=== PATIENT | male | born 1945 | race Caucasian/White ===

== ENCOUNTER → 2018-03-28 08:41 | Outpatient (CLI) | payer MEDICARE, OTHER, SELFPAY | PROVIDERS: Family Provider Family Medicine; PCP Family Medicine; Visit Provider Urology | DX: R97.20 Elevated prostate specific antigen [PSA] (principal) | CPT/HCPCS: 36415; 84153 ==

== ENCOUNTER → 2018-07-24 07:53 | Outpatient (CLI) | payer MEDICARE, OTHER, SELFPAY ==
[2018-07-24 09:40] LABS: Hematocrit 40.4 % (41-53); Hemoglobin 13.6 g/dL (13.5-17.5); Mean Corpuscular HGB Conc 33.7 % (30-36); Mean Corpuscular Hemoglobin 34.1 PG (26-34); Mean Corpuscular Volume 101.2 fL (80-100); Platelet Count 144 X10^3/uL (150-400); Red Cell Distribution Width 13.8 % (11.6-14.8)
[2018-07-24 10:08] LABS: Alanine Aminotransferase 30 IU/L (21-72); Albumin 4.3 g/dL (3.5-5.0); Albumin Globulin Ratio 1.5 (1.0-2.8); Alkaline Phosphatase 45 U/L (38-126); Aspartate Aminotransferase 23 IU/L (17-59); Bilirubin Total 0.6 mg/dL (0.2-1.3); Blood Urea Nitrogen 17 mg/dL (9-20); Calcium 9.1 mg/dL (8.4-10.2); Carbon Dioxide 27 mmol/L (22-32); Chloride 104 mmol/L (98-107); Cholesterol 211 mg/dL (140-199); Estimated Glomerular Filt Rate > 60.0 mL/min (>60); Globulin 2.8 g/dL (1.7-4.1); Glucose 112 mg/dL (80-110); HDL Cholesterol 52 mg/dL (40-60); HEMOLYSIS < 15 (0-50); LDL Cholesterol Calculated 138 mg/dL (<100); Sodium 140 mmol/L (137-145); Total Protein 7.1 g/dL (6.3-8.2); Triglycerides 105 mg/dL (35-150)
[2018-07-24 10:18] LABS: Free T3, Triiodothyronine Free 3.15 pg/mL (2.77-5.27); Free T4, Direct Thyroxine 0.73 ng/dL (0.78-2.19)
[2018-07-24 10:19] LABS: Morphology Comment Normal Morphology; Neutrophils Absolute Manual 1110 /uL (3000-5900); Total Cells Counted 100
[2018-07-24 10:36] LABS: Prostate Specific Antigen Scrn 3.77 ng/mL (0.1-4.0)
== END ==
PROVIDERS: PCP Family Medicine; Visit Provider Family Medicine
DX: D72.819 Decreased white blood cell count, unspecified (principal); E78.5 Hyperlipidemia, unspecified; E03.9 Hypothyroidism, unspecified; R89.9 Unspecified abnormal finding in specimens from other organs, systems and tissues; R94.6 Abnormal results of thyroid function studies; Z12.5 Encounter for screening for malignant neoplasm of prostate
CPT/HCPCS: 36415; 80053; 80061; 84439; 84443; 84481; 85025; G0103

== ENCOUNTER → 2018-08-23 06:43 | Outpatient (CLI) | payer MEDICARE, OTHER, SELFPAY ==
--- NOTE | 2018-08-23 | DI.MRI.S_ITS ---
PROCEDURE: MR LUMBAR SPINE WO CON INDICATIONS: SPINAL STENOSIS OF LUMBAR REGION TECHNIQUE: Noncontrast sagittal T1 spin echo and T2 fast echo, sagittal STIR, axial T1 and T2 fast spin echo through the lumbar spine. In cases with scoliosis, additional coronal T2 fast spin echo may be performed. COMPARISON: [facility], MR, L-SPINE WITHOUT CONTRAST, 04/27/2017, 9:17. [facility], CR, L-SPINE MINIMUM 4 VIEWS, 04/27/2017, 9:43. [facility], MR, L-SPINE WITHOUT CONTRAST, 08/24/2015, 15:28. [facility], MR, L-SPINE W&WO CONTRAST, 05/14/2015, 10:00. [facility], MR, L-SPINE WITHOUT CONTRAST, 11/10/2014, 8:38. FINDINGS: Image quality: Excellent. Alignment and Curvature: There is minimal retrolisthesis seen at the L2-L3, L4-L5, and L5-S1 levels. Bone Marrow: Marrow is of normal overall signal. No acute vertebral body compression fractures. Spinal Cord: Conus medullaris terminates at the L1 level. Visualized cord demonstrates normal signal and size. Paraspinous Soft Tissues: No paravertebral masses. T12-L1: The disc height and disc signal are relatively well-preserved. Mild generalized disc bulge is seen. No significant neural foraminal or central canal narrowing can be seen. L1-L2: Mild loss of disc height is seen. Loss of disc signal is seen. Mild generalized disc bulge is seen. Moderate bilateral neural foraminal narrowing is seen, left more prominent than right. Mild central canal narrowing is seen. These imaging findings have progressed compared to the prior study. L2-L3: Moderate loss of disc height is seen. Loss of disc signal is seen. Moderate generalized disc bulge is seen. Mild facet joint hypertrophy is seen. At least moderate bilateral neural foraminal narrowing is seen, right worse than left. Moderate central canal narrowing is seen. These imaging findings are mildly progressed compared to the prior. L3-L4: The disc height is well-preserved. Loss of disc signal is seen at this level. Mild to moderate disc bulge is seen. There has been removal of portions of the posterior elements. Moderate bilateral neural foraminal narrowing is seen, right greater than left. The central canal is widely patent. When comparison is made with the prior examination, these findings are similar. L4-L5: The disc height is well-preserved. Loss of disc signal is seen at this level. There has been removal of portions of the posterior elements. Mild to moderate disc bulge can be seen at this level. There is moderate to severe right-sided and severe left-sided neural foraminal narrowing seen. There is a degree of compression seen upon the exiting L4 nerve roots. The central canal is widely patent. These imaging findings have progressed compared to the prior study. L5-S1: Moderate to severe loss of disc height and disc signal are seen. Reactive marrow endplate changes are seen, which are hyperintense on T1-weighted and T2-weighted imaging and most consistent with fatty metaplasia (Modic type II changes). Moderate generalized disc bulge is seen. Joxj-on-bgocbmyu facet hypertrophy is seen. Moderate to severe bilateral neural foraminal narrowing is seen, left worse than right. There is a degree of compression seen upon the exiting L5 nerve roots. The central canal is widely patent. These imaging findings appear slightly progressed compared to the prior. IMPRESSION: Multiple levels of lumbar spine degenerative change are seen, which are most prominent inferiorly, with a degree of compression upon the exiting L4 and L5 nerve roots on both sides. Overall mild progression of degenerative change compared to 2017. Dictated by: Jatin Monroy M.D. on 08/23/2018 at 8:14 Approved by: Jatin Monroy M.D. on 08/23/2018 at 8:21
== END ==
PROVIDERS: PCP Family Medicine; Visit Provider Student in an Organized Health Care Education/Training Program
DX: M48.061 Spinal stenosis, lumbar region without neurogenic claudication (principal); M48.07 Spinal stenosis, lumbosacral region; M47.816 Spondylosis without myelopathy or radiculopathy, lumbar region; M47.817 Spondylosis without myelopathy or radiculopathy, lumbosacral region
CPT/HCPCS: 72148

== ENCOUNTER → 2018-08-27 14:33 | Outpatient (CLI) | payer MEDICARE, OTHER, SELFPAY ==
--- NOTE | 2018-08-27 | DI.RAD.S_ITS ---
PROCEDURE: XR LUMBAR SPINE 2-3V INDICATIONS: Spinal stenosis, lumbar region without neurogenic claudicati TECHNIQUE: 3 views of the lumbar spine were acquired. COMPARISON: [facility], , L-SPINE MINIMUM 4 VIEWS, 04/27/2017, 9:43. FINDINGS: Bones: 5 ihr-rxg-sgepcoe vertebrae are present. There is suggestion of prior laminectomy at L3-L5 levels suggest clinical correlation. There is grade 1 retrolisthesis of L2 on L3, L3 on L4 and L4 and L5 unchanged from previous studies. Degenerative endplate changes throughout lumbar spine is seen. No vertebral body compression fractures. No suspicious bony lesions. Soft tissues: Overlying bowel gas pattern is normal. No suspicious soft tissue calcifications. IMPRESSION: Degenerative disc disease throughout lumbar spine with likely degenerative spondylolisthesis at L2-3 through L4-5 levels. Prior laminectomy at L3-L5 levels. No acute compression fracture. Dictated by: Felipe Hi M.D. on 08/27/2018 at 15:40 Approved by: Felipe Hi M.D. on 08/27/2018 at 15:41
== END ==
PROVIDERS: PCP Family Medicine; Visit Provider Student in an Organized Health Care Education/Training Program
DX: M48.061 Spinal stenosis, lumbar region without neurogenic claudication (principal); M51.36 Other intervertebral disc degeneration, lumbar region; Z98.890 Other specified postprocedural states
CPT/HCPCS: 72100

== ENCOUNTER → 2018-10-05 14:55 | Outpatient (CLI) | payer MEDICARE, OTHER, SELFPAY ==
[2018-10-05 16:26] LABS: Free T3, Triiodothyronine Free 3.24 pg/mL (2.77-5.27); Free T4, Direct Thyroxine 0.76 ng/dL (0.78-2.19)
[2018-10-05 18:47] LABS: Alanine Aminotransferase 20 IU/L (21-72); Albumin 4.2 g/dL (3.5-5.0); Albumin Globulin Ratio 1.6 (1.0-2.8); Alkaline Phosphatase 46 U/L (38-126); Aspartate Aminotransferase 25 IU/L (17-59); BUN Creatinine Ratio 25.6 (6-22); Bilirubin Total 0.5 mg/dL (0.2-1.3); Bilirubin Unconjugated 0.4 mg/dL (0.0-1.1); Blood Urea Nitrogen 23 mg/dL (9-20); Calcium 9.4 mg/dL (8.4-10.2); Carbon Dioxide 29 mmol/L (22-32); Chloride 103 mmol/L (98-107); Estimated Glomerular Filt Rate > 60.0 mL/min (>60); Globulin 2.6 g/dL (1.7-4.1); Glucose 92 mg/dL (80-110); HEMOLYSIS < 15 (0-50); Potassium 4.7 mmol/L (3.4-5.1); Sodium 140 mmol/L (137-145); Total Protein 6.8 g/dL (6.3-8.2)
== END ==
PROVIDERS: PCP Family Medicine; Visit Provider Podiatrist
DX: B35.1 Tinea unguium (principal); R94.6 Abnormal results of thyroid function studies
CPT/HCPCS: 36415; 80048; 80076; 84439; 84443; 84481

== ENCOUNTER 2019-02-20 07:55 | Day surgery (SDC) | payer MEDICARE, OTHER, SELFPAY ==
--- NOTE | 2019-02-18 12:53 | PM.PREOP ---
Pre-operative Note Interval Note History & Physical reviewed/Exam performed by Physician: Yes Changes to H&P: No H&P completed within 30 days and has changed as indicated here:: He took an NSAID last night.
--- NOTE | 2019-02-18 12:54 | P.OP_ITS ---
Operative Date/Time/Diagnoses Date of procedure: 02/20/19 Time of procedure: 08:45 Procedure & Clinicians Procedure: Preoperative diagnoses: 1. Left complex surgery with use of Malyguin ring. 2. Mature or advanced nuclear sclerotic and cortical cataract with poor visibility of the anterior capsule increasing surgical risks of complications. 3. 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 Postoperative diagnoses: 1. Left complex surgery with use of Malyguin ring with placement of a posterior chamber intraocular lens implant. Surgeon: Mallika Toney MD Complications: none Specimen: None Implant: ZCBOO+22.5 Blood loss: None Anesthesia: Retrobulbar with monitored standby. Description of procedure: Dictated by: Mallika Toney MD Copy to: [facility] Post operative diagnoses: 1. Right complex cataract removed with use of Malyguin ring with placement of a posterior chamber intraocular lens. 2. Enlarged prostate. 3. Flomax use 4. Spinal irregularity after 2 previous surgeries. Procedure: Phacoemulsification with posterior chamber intraocular lens implant Surgeon: Mallika Toney MD Blood loss: None Anesthesia: Retrobulbar with monitored standby Description of procedure: Patient has presented with decreased vision due to cataract which is affecting activities of daily living. He has reduced distance and near vision. The patient wants surgery to improve vision. He uses Flomax routinely and has evidence of floppy iris syndrome and therefore a Malyugin ring will be used increased safety during surgery The patient was taken to the operating room and given IV sedation. A retrobulbar block consisting of 6 cc of 2% xylocaine without epinephrine mixed half and half with 0.5% Marcaine with 1 cc of hyaluronidase added is placed between the medial and lateral 1/3 of the inferior orbital rim. Lid akinesia is obtain with 1% xylocaine with epinephrine infiltrated along the lid margin. The eye is manually massaged for 30 sec, prepped using Betadine solution, and draped in the usual sterile fashion. He has a very deep set eye. Temporal approach was made, a 1 mm side-port incision was performed 90 degrees from the planned corneal wound. Phenylephrine 1.5% mixed with 1% xylocaine 0.2 cc was placed into the anterior chamber. Viscoat followed by Healon was then placed. A 2.6 mm clear incision with a 2.6 mm blade was placed. The patient had small pupil and presumed floppy iris syndrome. A 7.0 mm Malyguin ring was inspected, placed into a late certified indoor environmentalist, open into the anterior chamber and then sequentially hooked in each quadrant of the eye with a special device this allowed the 360 degree capsulorrhexis style capsulotomy to before reformed more easily with a cystitome needle and Healon. Hydrodelineation and hydrodissection were performed. The phacoemulsification unit is introduced, and sculpting used to groove the central lens. It is then removed in chopping mode. Epi nucleus is removed with epinuclear mode and irrigation aspiration was used to remove the peripheral cortex. The posterior capsule is polished. The intraocular lens is selected, inspected, power confirmed, and placed in the posterior chamber. The pupil was not constricted . The wound was stromally hydrated and tested for leaks, there was none and was left sutureless. Due to the deep set eye there was slight irritation with the speculum at the edges of the cornea and therefore a bandage contact lens was placed to improve comfort. Vigamox 0.1 cc was placed into the anterior chamber. Kenalog 0.2 cc was placed in the superior subconjunctival space. A drop of antibiotic and was placed and the eye was patched and shielded. The patient was stable and returned to the recovery room in excellent condition. Dictated by: Mallika Toney MD Copy to: [facility]
[2019-02-20] MEDS: PROPARACAINE 0.5% OPHTH SOL 2 DROPS EYE-OP (08:25)
[2019-02-20] MEDS: CATARACT EYE COMPOUND (10 DROPS/SYRINGE) 3 DROPS EYE-OP (08:29)
[2019-02-20 08:33] VITALS: BP 121/75; PULSE 75; RESP 15; TEMP 36; O2SAT 99; BMI 27.8
--- NOTE | 2019-02-20 09:04 | SUR.OPER ---
Supine on eye stretcher, head on extension cradle secured with tape. Arms tucked at sides with blanket. Pillow under knees.
[2019-02-20] MEDS: ERYTHROMYCIN OPHTH 1 GM OINT 1 APPLIC EYE-RIGHT (09:09)
[2019-02-20] MEDS: PHENYLEPHRINE/LIDOCAINE VIAL (OR) 0.2 ML EYE-OP (09:09)
[2019-02-20] MEDS: TRIAMCINOLONE 50 MG/5 ML VIAL INJ (09:10)
[2019-02-20] MEDS: LIDOCAINE 2% 4 ML, BUPIVACAINE 0.5% (PF) 4 ML, HYALURONIDASE 150 UNIT INJ (09:10)
[2019-02-20] MEDS: HYALURONATE SODIUM 10 MG/ML SYRINGE INJ (09:11)
[2019-02-20] MEDS: MOXIFLOXACIN INJ 5 MG/ML VIAL EYE-OP (09:12)
[2019-02-20 09:45] VITALS: BP 127/80; PULSE 64; RESP 15; TEMP 36.5; O2SAT 97
== END 2019-02-20 09:56 | disposition home or self-care (01) ==
LOC: OR 07:57
PROVIDERS: PCP Family Medicine; Visit Provider Ophthalmology
PROC: (CPT 66982; principal; 2019-02-20 08:45)
DX: H25.812 Combined forms of age-related cataract, left eye (principal); H21.81 Floppy iris syndrome
CPT/HCPCS: 66982; J2704; J3301; J3470

== ENCOUNTER 2019-03-06 06:58 | Day surgery (SDC) | payer MEDICARE, OTHER, SELFPAY ==
--- NOTE | 2019-03-05 18:47 | P.OP_ITS ---
Operative Date/Time/Diagnoses Date of procedure: 03/06/19 Time of procedure: 07:45 Procedure & Clinicians Procedure: Preoperative diagnoses: 1. Left advanced nuclear sclerotic and cortical cataract. 2. 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 3. Spinal iirregularitiies after multiple surgeries with right sided weakness. Postoperative diagnoses: 1. Complex cataract removed by phacoemulsification with placement of posterior chamber intraocular lens. 2. Use of Malyugin ring. Procedure: Phacoemulsification with posterior chamber intraocular lens implant and use of Malyguin ring. Surgeon: Mallika Toney MD Complications: None Specimen: None Implant: ZCBOO+22.5 Blood loss: None Anesthesia: Retrobulbar with monitored standby Description of procedure: Patient presents with a complaint of decreased v ision due to cataract which is affecting activities of daily living especially driving. The patient wants surgery to improve vision. The iris is floppy due to use of prostate like medication To improve surgical safety a Malyugin ring iris pupillary device is needed. The patient was taken to the operating room and given IV sedation. A retrobulbar block insert consisting of 6 cc of 2% xylocaine without epinephrine mixed half and half with 0.5% Marcaine with 1 cc of hyaluronidase added is placed between the medial and lateral 1/3 of the inferior orbital rim. Lid akinesia is obtain with 1% xylocaine with epinephrine infiltrated along the lid margin. The eye is manually massaged for 30 sec, prepped using Betadine solution, and draped in the usual sterile fashion. Temporal approach was made, a 1 mm side-port incision was made 90? from the proposed clear corneal incision position. Phenylephrine 1.5% mixed with 1% xylocaine 0.2 cc was placed into the anterior chamber. Viscoat followed by Nathanielon was then placed. A 2.6 mm clear incision with a 2.6 mm blade was placed. [A 7.0 mm Malyugin ring was inspected, placed into the diesel maintenance electrician and opened in the anterior chamber. The iris was sequentially hooked in all 4 quadrants. It was then centered to improve iris size and visibility.] A 360 degree capsulorrhexis style capsulotomy was then performed with a cystitome needle on a Healon aided by the enlarged pupil. Hydrodelineation and hydrodissection were performed. The phacoemulsification unit is introduced, and sculpting used to groove the central lens. It is then removed in chopping mode. Epi nucleus is removed with epinuclear mode and irrigation aspiration was used to remove the peripheral cortex. The posterior capsule is polished. The intraocular lens is selected, inspected, power confirmed, and placed in the posterior chamber. Viscoelastic was placed into the anterior chamber and the Malyugin ring disinserted from each quadrant of the iris. It was then placed back into its diesel maintenance electrician and removed in total from the eye. The wound was stromally hydrated and tested for leaks, there was none and it was left sutureless. Moxifloxacin 0.1 cc was placed into the anterior chamber. Kenalog 0.2 cc was placed in the superior subconjunctival space. A drop of antibiotic and was placed and the eye was patched and shielded. The patient was stable and returned to the recovery room in excellent condition. Dictated by: Mallika Toney MD Copy to: [facility]
--- NOTE | 2019-03-05 18:47 | PM.PREOP ---
Pre-operative Note Interval Note History & Physical reviewed/Exam performed by Physician: Yes Changes to H&P: No
[2019-03-06 07:11] VITALS: BMI 29.6
[2019-03-06] MEDS: PROPARACAINE 0.5% OPHTH SOL 2 DROPS EYE-OP (07:16)
[2019-03-06] MEDS: CATARACT EYE COMPOUND (10 DROPS/SYRINGE) 3 DROPS EYE-OP (07:18)
[2019-03-06 07:19] VITALS: BP 120/82; PULSE 82; RESP 16; TEMP 36.7; O2SAT 97
--- NOTE | 2019-03-06 08:05 | SUR.OPER ---
Supine on eye stretcher, head on extension cradle secured with tape. Arms tucked at sides with blanket. Pillow under knees.
[2019-03-06] MEDS: LIDOCAINE 2% 4 ML, BUPIVACAINE 0.5% (PF) 4 ML, HYALURONIDASE 150 UNIT INJ (08:12)
[2019-03-06] MEDS: TRIAMCINOLONE 50 MG/5 ML VIAL INJ (08:15)
[2019-03-06] MEDS: CHONDROIDTIN/SOD HYALURONATE 1.05 ML SYRINGE INTRAOCULA (08:16)
[2019-03-06] MEDS: HYALURONATE SODIUM 10 MG/ML SYRINGE INJ (08:17)
[2019-03-06] MEDS: BALANCED SALT IRRIG SOLN NO.2 500 ML, EPINEPHrine 1 MG IRR (08:18)
[2019-03-06] MEDS: ERYTHROMYCIN OPHTH 1 GM OINT 1 APPLIC EYE-LEFT (08:18)
[2019-03-06] MEDS: MOXIFLOXACIN INJ 5 MG/ML VIAL EYE-OP (08:28)
[2019-03-06 08:44] VITALS: BP 128/85; PULSE 73; RESP 16; TEMP 36.6; O2SAT 95
== END 2019-03-06 09:01 | disposition home or self-care (01) ==
LOC: OR 06:59
PROVIDERS: PCP Family Medicine; Visit Provider Ophthalmology
PROC: (CPT 66982; principal; 2019-03-06 07:45)
DX: H25.812 Combined forms of age-related cataract, left eye (principal); H21.81 Floppy iris syndrome
CPT/HCPCS: 66982; J0171; J2704; J3010; J3301; J3470

== ENCOUNTER → 2019-11-06 07:52 | Outpatient (CLI) | payer MEDICARE, OTHER, SELFPAY ==
[2019-11-06 09:18] LABS: Add Manual Diff / Slide Review NO; Basophils Absolute Auto 0 /uL (0-100); Basophils Percent Auto 0.6 % (0-2); Eosinophils Absolute Auto 0 /uL (0-450); Eosinophils Percent Auto 1.3 % (2-4); Hematocrit 39.1 % (41-53); Hemoglobin 13.4 g/dL (13.5-17.5); Lymphocytes Absolute Auto 1900 /uL (1100-4500); Lymphocytes Percent Auto 54.1 % (25-40); Mean Corpuscular HGB Conc 34.4 % (30-36); Mean Corpuscular Hemoglobin 35.2 PG (26-34); Mean Corpuscular Volume 102.4 fL (80-100); Monocytes Absolute Auto 600 /uL (0-900); Monocytes Percent Auto 17.8 % (3-14); Neutrophils Absolute Auto 900 /uL (1500-7000); Neutrophils Percent Auto 26.2 % (50-75); Platelet Count 132 X10^3/uL (150-400); Red Blood Cell Count 3.81 X10^6/uL (4.5-5.9); Red Cell Distribution Width 13.9 % (11.6-14.8); White Blood Cell Count 3.5 X10^3/uL (4.5-11.0)
[2019-11-06 09:59] LABS: Alanine Aminotransferase 16 IU/L (<50); Albumin 4.3 g/dL (3.5-5.0); Albumin Globulin Ratio 1.5 (1.0-2.8); Alkaline Phosphatase 41 U/L (38-126); Aspartate Aminotransferase 28 IU/L (17-59); BUN Creatinine Ratio 28.6 (6-22); Bilirubin Total 0.6 mg/dL (0.2-1.3); Blood Urea Nitrogen 22 mg/dL (9-20); Calcium 9.4 mg/dL (8.4-10.2); Carbon Dioxide 30 mmol/L (22-32); Chloride 103 mmol/L (98-107); Cholesterol 196 mg/dL (140-199); Estimated Glomerular Filt Rate > 60.0 mL/min (>60); Globulin 2.8 g/dL (1.7-4.1); Glucose 91 mg/dL (80-110); HDL Cholesterol 55 mg/dL (40-60); HEMOLYSIS < 15 (0-50); LDL Cholesterol Calculated 116 mg/dL (<100); Potassium 4.5 mmol/L (3.4-5.1); Sodium 139 mmol/L (137-145); Total Protein 7.1 g/dL (6.3-8.2); Triglycerides 125 mg/dL (35-150)
[2019-11-06 10:15] LABS: Prostate Specific Antigen Scrn 4.21 ng/mL (0.1-4.0); Thyroid Stimulating Hormone 6.73 uIU/mL (0.47-4.68)
== END ==
PROVIDERS: PCP Family Medicine; Referring Provider Family Medicine; Visit Provider Family Medicine
DX: D72.819 Decreased white blood cell count, unspecified (principal); E78.5 Hyperlipidemia, unspecified; R94.6 Abnormal results of thyroid function studies; Z12.5 Encounter for screening for malignant neoplasm of prostate
CPT/HCPCS: 36415; 80053; 80061; 84443; 85025; G0103

== ENCOUNTER → 2020-09-07 13:32 | Outpatient (CLI) | payer MEDICARE, OTHER, SELFPAY ==
[2020-09-07 14:40] LABS: Add Manual Diff / Slide Review NO; Basophils Absolute Auto 0 /uL (0-100); Basophils Percent Auto 0.5 % (0-2); Eosinophils Absolute Auto 0 /uL (0-450); Eosinophils Percent Auto 0.6 % (2-4); Hematocrit 38.5 % (41-53); Hemoglobin 12.9 g/dL (13.5-17.5); Lymphocytes Absolute Auto 1100 /uL (1100-4500); Lymphocytes Percent Auto 44.9 % (25-40); Mean Corpuscular HGB Conc 33.6 % (30-36); Mean Corpuscular Volume 104.3 fL (80-100); Monocytes Absolute Auto 400 /uL (0-900); Monocytes Percent Auto 14.4 % (3-14); Neutrophils Absolute Auto 1000 /uL (1500-7000); Neutrophils Percent Auto 39.6 % (50-75); Platelet Count 139 X10^3/uL (150-400); Red Blood Cell Count 3.69 X10^6/uL (4.5-5.9); White Blood Cell Count 2.5 X10^3/uL (4.5-11.0)
[2020-09-07 16:30] LABS: Alanine Aminotransferase 16 IU/L (<50); Albumin Globulin Ratio 1.4 (1.0-2.8); Alkaline Phosphatase 52 U/L (38-126); Aspartate Aminotransferase 25 IU/L (17-59); Bilirubin Total 0.7 mg/dL (0.2-1.3); Bilirubin Unconjugated 0.6 mg/dL (0.0-1.1); Globulin 2.8 g/dL (1.7-4.1); HEMOLYSIS < 15 (0-50); Total Protein 6.8 g/dL (6.3-8.2)
== END ==
PROVIDERS: PCP Family Medicine; Referring Provider Podiatrist; Visit Provider Podiatrist
DX: B35.1 Tinea unguium (principal)
CPT/HCPCS: 36415; 80076; 85025

== ENCOUNTER → 2020-09-28 09:40 | Outpatient (CLI) | payer MEDICARE, OTHER, SELFPAY ==
[2020-09-28 11:05] LABS: Reticulocyte Count, Percent 0.5 % (0.87-2.60)
[2020-09-28 11:08] LABS: Add Manual Diff / Slide Review NO; Basophils Absolute Auto 0 /uL (0-100); Basophils Percent Auto 0.6 % (0-2); Eosinophils Absolute Auto 0 /uL (0-450); Eosinophils Percent Auto 1.6 % (2-4); Hematocrit 37.6 % (41-53); Hemoglobin 12.7 g/dL (13.5-17.5); Lymphocytes Absolute Auto 1400 /uL (1100-4500); Lymphocytes Percent Auto 59.9 % (25-40); Mean Corpuscular HGB Conc 33.7 % (30-36); Mean Corpuscular Hemoglobin 35.4 PG (26-34); Mean Corpuscular Volume 105.1 fL (80-100); Monocytes Absolute Auto 600 /uL (0-900); Monocytes Percent Auto 25.9 % (3-14); Neutrophils Absolute Auto 300 /uL (1500-7000); Platelet Count 126 X10^3/uL (150-400); Red Blood Cell Count 3.58 X10^6/uL (4.5-5.9); White Blood Cell Count 2.4 X10^3/uL (4.5-11.0)
[2020-09-28 11:44] LABS: HEMOLYSIS < 15 (0-50); Iron 114 ug/dL (49-181)
[2020-09-28 11:50] LABS: Alanine Aminotransferase 15 IU/L (<50); Albumin 3.8 g/dL (3.5-5.0); Albumin Globulin Ratio 1.4 (1.0-2.8); Alkaline Phosphatase 46 U/L (38-126); Aspartate Aminotransferase 25 IU/L (17-59); BUN Creatinine Ratio 15.6 (6-22); Bilirubin Total 0.4 mg/dL (0.2-1.3); Blood Urea Nitrogen 14 mg/dL (9-20); Calcium 9.2 mg/dL (8.4-10.2); Carbon Dioxide 29 mmol/L (22-32); Chloride 105 mmol/L (98-107); Estimated Glomerular Filt Rate > 60.0 mL/min (>60); Globulin 2.7 g/dL (1.7-4.1); Glucose 81 mg/dL (80-110); HEMOLYSIS < 15 (0-50); Potassium 4.7 mmol/L (3.4-5.1); Sodium 138 mmol/L (137-145); Total Protein 6.5 g/dL (6.3-8.2)
[2020-09-28 11:56] LABS: Percent Iron Saturation 42 % (20-50); Total Iron Binding Capacity 274 ug/dL (261-462); Transferrin 205 mg/dL (206-381)
[2020-09-28 12:00] LABS: Free T4, Direct Thyroxine 1.64 ng/dL (0.78-2.19)
[2020-09-28 12:20] LABS: Thyroid Stimulating Hormone < 0.015 uIU/mL (0.47-4.68)
[2020-09-28 12:23] LABS: Ferritin 56 ng/mL (18-464)
[2020-09-28 12:37] LABS: Vitamin B12 463 pg/mL (239-931)
== END ==
PROVIDERS: PCP Family Medicine; Referring Provider Family Medicine; Visit Provider Family Medicine
DX: D51.0 Vitamin B12 deficiency anemia due to intrinsic factor deficiency (principal); E03.9 Hypothyroidism, unspecified; M54.9 Dorsalgia, unspecified
CPT/HCPCS: 36415; 80053; 82607; 82728; 83540; 83550; 84439; 84443; 85025; 85045

== ENCOUNTER → 2020-11-04 08:10 | Outpatient (CLI) | payer MEDICARE, OTHER, SELFPAY ==
--- NOTE | 2020-11-04 08:12 | DI.RAD.S_ITS ---
PROCEDURE: XR FINGER LT MIN 2V INDICATIONS: L 5th finger TECHNIQUE: AP hand, 2 views of the 5th finger(s) acquired. COMPARISON: None. FINDINGS: Bones: No fractures or dislocations. No suspicious bony lesions. Soft tissues: No suspicious soft tissue calcifications. IMPRESSION: No trauma found but there is mild osteoarthritis with joint space narrowing at the 5th proximal and distal interphalangeal joints. Dictated by: Davis Fernandez M.D. on 11/04/2020 at 9:42 Approved by: Davis Fernandez M.D. on 11/04/2020 at 9:43
== END ==
PROVIDERS: PCP Family Medicine; Referring Provider Physician Assistant; Visit Provider Physician Assistant
DX: M79.645 Pain in left finger(s) (principal); M19.042 Primary osteoarthritis, left hand
CPT/HCPCS: 73140

== ENCOUNTER 2020-11-07 07:17 | Emergency (ER) | payer MEDICARE, OTHER, SELFPAY ==
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
[2020-11-07 07:28] VITALS: BP 116/65; PULSE 76; RESP 18; TEMP 36.8; O2SAT 97; BMI 27.8
--- NOTE | 2020-11-07 07:35 | DI.RAD.S_ITS ---
PROCEDURE: XR FINGER LT MIN 2V INDICATIONS: infection/wound left fifth finger after fall TECHNIQUE: AP hand, 2 views of the small finger(s) acquired. COMPARISON: [facility], , XR FINGER LT MIN 2V, 11/04/2020, 8:17. FINDINGS: Bones: No fractures or dislocations. No suspicious bony lesions. Soft tissues: No suspicious soft tissue calcifications. Soft tissue swelling without soft tissue gas. IMPRESSION: Soft tissue swelling. No radiopaque foreign body or soft tissue gas. No plain film evidence of osteomyelitis. No evidence acute bony abnormality of the left 5th finger. If clinical suspicion and/or symptoms persist, further assessment with repeat plain films, or advanced imaging (e.g., CT, MRI, or bone scan) may be helpful for further assessment. Dictated by: Alvino Hagen M.D. on 11/07/2020 at 7:43 Approved by: Alvino Hagen M.D. on 11/07/2020 at 7:45
[2020-11-07 08:03] LABS: Hematocrit 34.3 % (41-53); Hemoglobin 11.5 g/dL (13.5-17.5); Mean Corpuscular HGB Conc 33.6 % (30-36); Mean Corpuscular Hemoglobin 34.9 PG (26-34); Mean Corpuscular Volume 103.8 fL (80-100); Platelet Count 111 X10^3/uL (150-400); Red Cell Distribution Width 13.9 % (11.6-14.8); White Blood Cell Count 4.4 X10^3/uL (4.5-11.0)
[2020-11-07 08:06] LABS: Add Manual Diff / Slide Review YES; BUN Creatinine Ratio 26.1 (6-22); Blood Urea Nitrogen 18 mg/dL (9-20); Calcium 9.1 mg/dL (8.4-10.2); Carbon Dioxide 27 mmol/L (22-32); Chloride 109 mmol/L (98-107); Estimated Glomerular Filt Rate > 60.0 mL/min (>60); Glucose 129 mg/dL (80-110); HEMOLYSIS < 15 (0-50); Potassium 4.3 mmol/L (3.4-5.1); Sodium 139 mmol/L (137-145)
[2020-11-07] MEDS: CLINDAMYCIN 900 MG/50 ML PIGGYBACK 50 MG IV (08:14)
[2020-11-07 08:23] LABS: Procalcitonin 0.06 ng/mL (<0.5)
[2020-11-07 08:37] LABS: Neutrophils Absolute Manual 2156 /uL (3000-5900); RBC Morphology Normal Morphology; Total Cells Counted 100
[2020-11-07 09:04] VITALS: BP 102/63; PULSE 68; RESP 16; O2SAT 97
== END 2020-11-07 09:16 | disposition home or self-care (01) ==
PROVIDERS: Emergency Provider Emergency Medicine; PCP Family Medicine
DX: L03.114 Cellulitis of left upper limb (principal); S61.207A Unspecified open wound of left little finger without damage to nail, initial encounter
CPT/HCPCS: 36415; 73140; 80048; 84145; 85007; 85025; 87040; 87070; 87077; 87205; 99284

== ENCOUNTER 2020-11-08 07:03 | Emergency (ER) | payer MEDICARE, OTHER, SELFPAY ==
[2020-11-08 07:17] VITALS: BP 119/72; PULSE 74; RESP 18; TEMP 36.9; O2SAT 97; BMI 27.8
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
== END 2020-11-08 07:43 | disposition home or self-care (01) ==
PROVIDERS: Emergency Provider Emergency Medicine; PCP Family Medicine
DX: S61.209D Unspecified open wound of unspecified finger without damage to nail, subsequent encounter (principal); L03.119 Cellulitis of unspecified part of limb

== ENCOUNTER 2020-11-08 18:44 | Inpatient (IN) | payer MEDICARE, OTHER, SELFPAY ==
[2020-11-08 19:05] VITALS: BP 134/75; PULSE 78; RESP 20; TEMP 36.2; O2SAT 98
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
--- NOTE | 2020-11-08 21:15 | PC.NURSE ---
failed out patient antibiotic. Increase redness, swelling and pain.
[2020-11-08 21:28] LABS: Lactate (Lactic Acid) 1.1 mmol/L (0.7-2.1)
[2020-11-08 21:29] LABS: Blood Urea Nitrogen 17 mg/dL (9-20); Carbon Dioxide 26 mmol/L (22-32); Chloride 107 mmol/L (98-107); Estimated Glomerular Filt Rate > 60.0 mL/min (>60); Glucose 88 mg/dL (80-110); HEMOLYSIS < 15 (0-50); Potassium 4.6 mmol/L (3.4-5.1); Sodium 140 mmol/L (137-145)
[2020-11-08 21:30] LABS: Hematocrit 34.4 % (41-53); Hemoglobin 11.5 g/dL (13.5-17.5); Mean Corpuscular HGB Conc 33.6 % (30-36); Mean Corpuscular Volume 104.3 fL (80-100); Platelet Count 137 X10^3/uL (150-400); Red Cell Distribution Width 13.6 % (11.6-14.8)
[2020-11-08 21:31] LABS: Add Manual Diff / Slide Review YES
[2020-11-08] MEDS: VANCOMYCIN 1,000 MG/200 ML PIGGYBACK 200 MG IV (21:36)
[2020-11-08] MEDS: SODIUM CHLORIDE 0.9% 1,000 ML 125 ML IV (21:38)
[2020-11-08 21:46] LABS: Procalcitonin 0.05 ng/mL (<0.5)
[2020-11-08 21:53] LABS: Neutrophils Absolute Manual 1950 /uL (3000-5900); Total Cells Counted 100
[2020-11-08 21:55] LABS: RBC Morphology Normal Morphology
[2020-11-08 22:15] LABS: COVID19 - ADMIT (NP swab/PCR) Negative (Negative)
[2020-11-08] MEDS: HYDROCODONE/ACET 5/325 TABLET 1 TAB PO (22:16)
[2020-11-08 22:33] VITALS: BP 131/86; PULSE 72; RESP 18; TEMP 37; O2SAT 97
[2020-11-08 22:35] VITALS: BMI 28.5
[2020-11-08] MEDS: cefTRIAXone 1,000 MG in SODIUM CHLORIDE 0.9% 100 ML 200 ML IV (22:52)
[2020-11-08 23:00] VITALS: BP 122/73; PULSE 74; RESP 18; TEMP 37.1; O2SAT 95
[2020-11-09] VITALS (14 sets, daily range): BP systolic 104–138; BP diastolic 57–81; PULSE 74–83; RESP 9–20; TEMP 36.2–37.2; O2SAT 94–99; BMI 28.5
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
[2020-11-09] MEDS: HYDROCODONE/ACET 5/325 TABLET 1 TAB PO ×4 (02:22→17:07)
[2020-11-09 06:25] LABS: BUN Creatinine Ratio 23.9 (6-22); Blood Urea Nitrogen 16 mg/dL (9-20); Calcium 8.7 mg/dL (8.4-10.2); Carbon Dioxide 25 mmol/L (22-32); Chloride 109 mmol/L (98-107); Estimated Glomerular Filt Rate > 60.0 mL/min (>60); Glucose 89 mg/dL (80-110); HEMOLYSIS < 15 (0-50); Potassium 4.4 mmol/L (3.4-5.1); Sodium 139 mmol/L (137-145)
[2020-11-09 06:26] LABS: Alanine Aminotransferase 18 IU/L (<50); Albumin 3.3 g/dL (3.5-5.0); Albumin Globulin Ratio 1.1 (1.0-2.8); Alkaline Phosphatase 47 U/L (38-126); Aspartate Aminotransferase 23 IU/L (17-59); Bilirubin Total 0.2 mg/dL (0.2-1.3); Bilirubin Unconjugated 0.2 mg/dL (0.0-1.1); Globulin 2.9 g/dL (1.7-4.1); HEMOLYSIS < 15 (0-50); Magnesium 1.9 mg/dL (1.6-2.3); Total Protein 6.2 g/dL (6.3-8.2)
[2020-11-09 06:37] LABS: Hematocrit 32.1 % (41-53); Hemoglobin 10.9 g/dL (13.5-17.5); Mean Corpuscular HGB Conc 33.9 % (30-36); Mean Corpuscular Hemoglobin 35.3 PG (26-34); Mean Corpuscular Volume 104.2 fL (80-100); Platelet Count 125 X10^3/uL (150-400); Red Blood Cell Count 3.08 X10^6/uL (4.5-5.9); Red Cell Distribution Width 13.7 % (11.6-14.8); White Blood Cell Count 4.4 X10^3/uL (4.5-11.0)
[2020-11-09 06:38] LABS: Add Manual Diff / Slide Review YES
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
[2020-11-09 08:18] LABS: Neutrophils Absolute Manual 1584 /uL (3000-5900); RBC Morphology Normal Morphology; Total Cells Counted 100
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
[2020-11-09] MEDS: GABAPENTIN 300 MG CAPSULE PO ×2 (09:29→19:17)
--- NOTE | 2020-11-09 09:46 | PC.NURSE ---
Day shift: Pt back on IV fluids per Dr Clinton verbal instructions this AM. Pt NPO at approx 0930 today. Call light in reach. Medicated for left hand pain 09/21 per JUL.
--- NOTE | 2020-11-09 16:05 | P.PN_ITS ---
Subjective Subjective Date Patient Seen: 11/09/20 Time Patient Seen: 16:05 Interval history: This is a 75-year-old male admitted with an infection in his left pinky finger which has not responded to outpatient antibiotics. Currently awaiting re-evaluation by Orthopedic surgery for possible incision and drainage. Wound appears to be slowly improving, but there is still significant swelling in his range of motion is limited. He denies any fevers, shortness of breath, cough, chest pain, nausea, vomiting, abdominal pain, headaches. Exam Vital Signs (past 8 hours): - 11/09/20 08:11 11/09/20 09:15 11/09/20 16:00 Temperature 97.9 F Pulse Rate 78 Respiratory Rate 16 Blood Pressure 133/74 Pulse Oximetry 98 96 97 Oxygen Delivery Method Room Air Oxygen Flow Rate 0 Narrative Exam Narrative: Gen: Alert, oriented, well-developed 75 y.o. male, NAD HEENT: normocephalic, atraumatic, conjunctiva clear, sclera non-icteric, oral mucosa pink and moist Neck: supple, full ROM, no JVD, trachea is midline Resp: Lungs CTA, non-labored breathing CV: RRR, no murmur or rubs Abd: soft, non-tender, normoactive BTs Skin: no lesions or rashes, dry and intact Neuro: Alert and oriented X 4 w/no focal deficits. Speech clear and coherent. Extremities: left pinky is swollen times, demarkated area has improved but area around his PIP joint remains swollen, tender. Limited range of mobility due to swelling. Moves all 4 extremities, is ambulatory, negative Adonay?s sign Psyche: normal mood and affect. Objective Labs Result Diagrams: 11/09/20 05:05 11/09/20 05:05 Labs: Laboratory Results - last 24 hr 11/08/20 11/08/20 11/08/20 21:03 21:03 21:03 WBC 5.0 RBC 3.30 L Hgb 11.5 L Hct 34.4 L MCV 104.3 H MCH 35.0 H MCHC 33.6 RDW 13.6 Plt Count 137 L Neut % (Auto) Not Reportable Lymph % (Auto) Not Reportable [place] % (Auto) Not Reportable Eos % (Auto) Not Reportable Baso % (Auto) Not Reportable Lymph # (Auto) Not Reportable [place] # (Auto) Not Reportable Baso # (Auto) Not Reportable Total Counted 100 Seg Neutrophils % 34.0 L Band Neutrophils % 5.0 Lymphocytes % (Manual) 33.0 Atypical Lymphs % 1.0 H Monocytes % (Manual) 26.0 H Eosinophils % (Manual) 1.0 L Myelocytes % Neutrophils # (Manual) 1950 L RBC Morphology Normal morphology Sodium 140 Potassium 4.6 Chloride 107 Carbon Dioxide 26 BUN 17 Creatinine 0.85 Estimated GFR > 60.0 BUN/Creatinine Ratio 20.0 Glucose 88 Lactate 1.1 Calcium 9.0 Magnesium Total Bilirubin Conjugated Bilirubin Unconjugated Bilirubin AST ALT Alkaline Phosphatase Total Protein Albumin Globulin Albumin/Globulin Ratio Procalcitonin SARS-CoV-2 (PCR) 11/08/20 11/08/20 11/09/20 21:03 21:20 05:05 WBC 4.4 L RBC 3.08 L Hgb 10.9 L Hct 32.1 L MCV 104.2 H MCH 35.3 H MCHC 33.9 RDW 13.7 Plt Count 125 L Neut % (Auto) Not Reportable Lymph % (Auto) Not Reportable [place] % (Auto) Not Reportable Eos % (Auto) Not Reportable Baso % (Auto) Not Reportable Lymph # (Auto) Not Reportable [place] # (Auto) Not Reportable Baso # (Auto) Not Reportable Total Counted 100 Seg Neutrophils % 25.0 L Band Neutrophils % 11.0 H Lymphocytes % (Manual) 34.0 Atypical Lymphs % 2.0 H Monocytes % (Manual) 26.0 H Eosinophils % (Manual) 1.0 L Myelocytes % 1.0 H Neutrophils # (Manual) 1584 L RBC Morphology Normal morphology Sodium Potassium Chloride Carbon Dioxide BUN Creatinine Estimated GFR BUN/Creatinine Ratio Glucose Lactate Calcium Magnesium Total Bilirubin Conjugated Bilirubin Unconjugated Bilirubin AST ALT Alkaline Phosphatase Total Protein Albumin Globulin Albumin/Globulin Ratio Procalcitonin 0.05 SARS-CoV-2 (PCR) Negative 11/09/20 11/09/20 11/09/20 05:05 05:05 05:05 WBC RBC Hgb Hct MCV MCH MCHC RDW Plt Count Neut % (Auto) Lymph % (Auto) [place] % (Auto) Eos % (Auto) Baso % (Auto) Lymph # (Auto) [place] # (Auto) Baso # (Auto) Total Counted Seg Neutrophils % Band Neutrophils % Lymphocytes % (Manual) Atypical Lymphs % Monocytes % (Manual) Eosinophils % (Manual) Myelocytes % Neutrophils # (Manual) RBC Morphology Sodium 139 Potassium 4.4 Chloride 109 H Carbon Dioxide 25 BUN 16 Creatinine 0.67 Estimated GFR > 60.0 BUN/Creatinine Ratio 23.9 H Glucose 89 Lactate Calcium 8.7 Magnesium 1.9 Total Bilirubin 0.2 Conjugated Bilirubin 0.0 Unconjugated Bilirubin 0.2 AST 23 ALT 18 Alkaline Phosphatase 47 Total Protein 6.2 L Albumin 3.3 L Globulin 2.9 Albumin/Globulin Ratio 1.1 Procalcitonin SARS-CoV-2 (PCR) [facility] Medical History Back pain Back pain with history of spinal surgery Enlarged prostate Hypothyroidism Pernicious anemia Surgical History History of hernia repair History of lumbar surgery Hx of transurethral resection of prostate Family History Father Heart disease Mother Old age Brother Arrhythmia Social History household members: spouse Smoking Status: Former smoker Tobacco: How many years used: 3 alcohol intake: current substance use type: does not use Assessment & Plan Assessment & Plan narrative: Cortez Bolaños is a 75 year old male admitted with left finger cellulitis and possible abscess. 1. Acute trauma and subsequent cellulitis of the left little finger, not improving on outpatient antibiotics and present on admission patient started on ceftriaxone overnight, given dose of vanco in the ER. Will order per pharmacy today. Continue ceftriaxone and vanco. Continue NPO. Appreciate orthopedic surgery and Dr. Clinton, pending re- evaluation later today to see if I&D is necessary. 2. Hypothyroidism, chronic and stable continue home dose of levothyroxine 100 mcg 3. Chronic right-sided polyneuropathy, chronic continue home dose of gabapentin 300 mg p.o. t.i.d. Consults: Dr. Clinton, Orthopedic Surgery consult and involvement is appreciated. Dispo: Probable discharge to home, admitted as inpatient, pending possible I&D and will need IV antitbiotics at the least after failing outpatient therapy. Code Status: Full Code as discussed with patient Faby Bolaños, and surrogate/POA Quality VTE Deep Vein Thrombosis/Pulmonary Embolism Present on Admission: No
[2020-11-09] MEDS: SODIUM CHLORIDE 0.9% 1,000 ML 100 ML IV (17:07)
[2020-11-09] MEDS: VANCOMYCIN 1,250 MG/250 ML PIGGYBACK 250 MG IV (17:08)
--- NOTE | 2020-11-09 18:54 | PC.NURSE ---
Addendum entered by Brigette Vogt R.N. 11/09/20 22:31: As of 2229 patient not back from surgery/pacu. Surgery started later d/t other surgery before his. aware of late start and is in pts room at this time. Original Note: Patient down to surgery via wheelchair. A&O, calm and cooperative.
[2020-11-09] MEDS: LACTATED RINGERS 1,000 ML 42 ML IV (19:07)
[2020-11-09] MEDS: ACETAMINOPHEN 325 MG TABLET 650 MG PO (19:16)
--- NOTE | 2020-11-09 19:20 | SUR.HOLD ---
Pt brought down to [facility] via wheelchair, placed on stretcher. Medicated per Dr. Carrillo's instructions and seen by Dr. Clinton at bedside, consent signed.
--- NOTE | 2020-11-09 22:04 | SUR.OPER ---
Supine on padded OR bed, head on pillow, Right arm secured on padded arm boards at <90 degrees abduction, Left arm on padded arm extension and in control of the Surgeon, legs uncrossed, safety belt at thigh, tape over blanket over lower legs.
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
[2020-11-09] MEDS: HYDROMORPHONE 2 MG INJ IV ×2 (22:44→22:51)
[2020-11-09] MEDS: OXYCODONE IR 5 MG TABLET PO (22:49)
--- NOTE | 2020-11-09 22:53 | SUR.PHASEI ---
Pt arrived with patent airway, c/o pain. Medicated with dilaudid and oxycodone. Tolerated ice chips and applesauce with no nausea
[2020-11-09] MEDS: fentaNYL 100 MCG/2 ML INJ IV (23:00)
--- NOTE | 2020-11-09 23:18 | SUR.PHASEI ---
Pain still high after dilaudid, fentanyl given. Pain now receding. Report attempted, RN unavailable.
--- NOTE | 2020-11-09 23:23 | SUR.PHASEI ---
CJ called report given, 2330 pt transported up to room 225 via stretcher.
--- NOTE | 2020-11-09 23:52 | SUR.PHASEI ---
Pt assisted to bed, on transfer became nauseated, diaphoretic, [facility] Stated nausea was going away, Pt left with CJ in good condition asking about her about food choices this late at night.
[2020-11-10] VITALS (12 sets, daily range): BP systolic 100–147; BP diastolic 58–78; PULSE 60–85; RESP 16; TEMP 36.2–36.8; O2SAT 94–98
[2020-11-10] MEDS: ASPIRIN EC 81 MG TABLET PO ×3 (00:57→21:33)
[2020-11-10] MEDS: cefTRIAXone 1,000 MG in SODIUM CHLORIDE 0.9% 100 ML 200 ML IV ×2 (00:59→21:34)
[2020-11-10] MEDS: SODIUM CHLORIDE 0.9% 1,000 ML 100 ML IV (01:43)
[2020-11-10] MEDS: OXYCODONE IR 5 MG TABLET PO ×3 (04:20→22:10)
[2020-11-10 05:16] LABS: Add Manual Diff / Slide Review NO; Basophils Absolute Auto 0 /uL (0-100); Basophils Percent Auto 0.1 % (0-2); Eosinophils Absolute Auto 0 /uL (0-450); Hematocrit 32.6 % (41-53); Hemoglobin 11.1 g/dL (13.5-17.5); Lymphocytes Absolute Auto 500 /uL (1100-4500); Lymphocytes Percent Auto 14.6 % (25-40); Mean Corpuscular Hemoglobin 35.2 PG (26-34); Mean Corpuscular Volume 103.7 fL (80-100); Monocytes Absolute Auto 300 /uL (0-900); Monocytes Percent Auto 8.1 % (3-14); Neutrophils Absolute Auto 2700 /uL (1500-7000); Neutrophils Percent Auto 77.2 % (50-75); Platelet Count 135 X10^3/uL (150-400); Red Blood Cell Count 3.15 X10^6/uL (4.5-5.9); Red Cell Distribution Width 13.4 % (11.6-14.8); White Blood Cell Count 3.4 X10^3/uL (4.5-11.0)
[2020-11-10] MEDS: VANCOMYCIN 1,250 MG/250 ML PIGGYBACK 250 MG IV ×2 (05:21→16:39)
[2020-11-10 05:26] LABS: BUN Creatinine Ratio 23.9 (6-22); Blood Urea Nitrogen 16 mg/dL (9-20); Calcium 8.7 mg/dL (8.4-10.2); Carbon Dioxide 22 mmol/L (22-32); Chloride 108 mmol/L (98-107); Estimated Glomerular Filt Rate > 60.0 mL/min (>60); Glucose 176 mg/dL (80-110); HEMOLYSIS < 15 (0-50); Potassium 4.4 mmol/L (3.4-5.1); Sodium 137 mmol/L (137-145)
[2020-11-10 05:36] LABS: Alanine Aminotransferase 19 IU/L (<50); Albumin 3.3 g/dL (3.5-5.0); Albumin Globulin Ratio 1.1 (1.0-2.8); Alkaline Phosphatase 49 U/L (38-126); Aspartate Aminotransferase 23 IU/L (17-59); Bilirubin Total 0.2 mg/dL (0.2-1.3); Bilirubin Unconjugated 0.2 mg/dL (0.0-1.1); Globulin 2.9 g/dL (1.7-4.1); HEMOLYSIS < 15 (0-50); Total Protein 6.2 g/dL (6.3-8.2)
--- NOTE | 2020-11-10 07:35 | P.PN_ITS ---
Subjective Subjective Date Patient Seen: 11/10/20 Time Patient Seen: 07:35 Interval history: The patient reports he is comfortable postoperatively. Exam Vital Signs (past 8 hours): - 11/09/20 23:45 11/10/20 00:20 11/10/20 00:45 Temperature 97.2 F L 97.9 F Pulse Rate 77 85 75 Respiratory Rate 16 16 16 Blood Pressure 136/78 147/73 H 127/78 Pulse Oximetry 97 94 95 11/10/20 01:10 11/10/20 01:50 11/10/20 02:20 Temperature 97.4 F L 97.2 F L Pulse Rate 76 76 Respiratory Rate 16 16 Blood Pressure 124/71 100/62 Pulse Oximetry 96 96 96 11/10/20 05:00 Temperature 98.0 F Pulse Rate 71 Respiratory Rate 16 Blood Pressure 119/71 Pulse Oximetry 98 Oxygen Delivery Method Room Air Oxygen Flow Rate 2 Narrative Exam Narrative: Left small finger wound is dressed with no drainage on the bandage. I cannot assess light touch as the tip of the finger is within the bandage. Objective Labs Result Diagrams: 11/10/20 04:50 11/10/20 04:50 Labs: Laboratory Results - last 24 hr 11/09/20 11/10/20 11/10/20 05:05 04:50 04:50 WBC 3.4 L RBC 3.15 L Hgb 11.1 L Hct 32.6 L MCV 103.7 H MCH 35.2 H MCHC 34.0 RDW 13.4 Plt Count 135 L Neut % (Auto) 77.2 H Lymph % (Auto) 14.6 L [place] % (Auto) 8.1 Eos % (Auto) 0.0 L Baso % (Auto) 0.1 Neut # (Auto) 2700 Lymph # (Auto) 500 L [place] # (Auto) 300 Eos # (Auto) 0 Baso # (Auto) 0 Total Counted 100 Seg Neutrophils % 25.0 L Band Neutrophils % 11.0 H Lymphocytes % (Manual) 34.0 Atypical Lymphs % 2.0 H Monocytes % (Manual) 26.0 H Eosinophils % (Manual) 1.0 L Myelocytes % 1.0 H Neutrophils # (Manual) 1584 L RBC Morphology Normal morphology Sodium 137 Potassium 4.4 Chloride 108 H Carbon Dioxide 22 BUN 16 Creatinine 0.67 Estimated GFR > 60.0 BUN/Creatinine Ratio 23.9 H Glucose 176 H Calcium 8.7 Total Bilirubin Conjugated Bilirubin Unconjugated Bilirubin AST ALT Alkaline Phosphatase Total Protein Albumin Globulin Albumin/Globulin Ratio 11/10/20 04:50 WBC RBC Hgb Hct MCV MCH MCHC RDW Plt Count Neut % (Auto) Lymph % (Auto) [place] % (Auto) Eos % (Auto) Baso % (Auto) Neut # (Auto) Lymph # (Auto) [place] # (Auto) Eos # (Auto) Baso # (Auto) Total Counted Seg Neutrophils % Band Neutrophils % Lymphocytes % (Manual) Atypical Lymphs % Monocytes % (Manual) Eosinophils % (Manual) Myelocytes % Neutrophils # (Manual) RBC Morphology Sodium Potassium Chloride Carbon Dioxide BUN Creatinine Estimated GFR BUN/Creatinine Ratio Glucose Calcium Total Bilirubin 0.2 Conjugated Bilirubin 0.0 Unconjugated Bilirubin 0.2 AST 23 ALT 19 Alkaline Phosphatase 49 Total Protein 6.2 L Albumin 3.3 L Globulin 2.9 Albumin/Globulin Ratio 1.1 PFSH Medical History Back pain Back pain with history of spinal surgery Enlarged prostate Hypothyroidism Pernicious anemia Surgical History History of hernia repair History of lumbar surgery Hx of transurethral resection of prostate Family History Father Heart disease Mother Old age Brother Arrhythmia Social History household members: spouse Smoking Status: Former smoker Tobacco: How many years used: 3 alcohol intake: current substance use type: does not use Assessment & Plan Post-op Postoperative Procedures: Procedures Operation Date: 11/09/20 19:30 Actual Procedure Side Surgeon p Incision and Drainage of Septic PIP Joint of Small Finger Left Arias Clinton MD Postoperative day: 1 Postoperative status: doing well Postoperative status narrative: Stable postoperative day 1/2 after drainage of left small finger proximal interphalangeal joint septic joint. There is a drain in place. Postoperative plan: routine post-op care Postoperative plan narrative: Continued IV antibiotics through tomorrow. We will remove the wick that is in his joint tomorrow and change his dressing. Unless there are significant wound complications at that time he should be able to complete his treatment as an outpatient. He will require 4-6 weeks of outpatient oral antibiotics. Time Spent With Patient Time with patient: less than 15 minutes Quality VTE Deep Vein Thrombosis/Pulmonary Embolism Present on Admission: No
[2020-11-10] MEDS: ACETAMINOPHEN 325 MG TABLET 975 MG PO ×3 (09:15→21:33)
[2020-11-10] MEDS: polyethylene glycoL 3350 17 GM POWD.PACK PO ×2 (09:15→22:12)
[2020-11-10] MEDS: DOCUSATE 100 MG CAPSULE PO ×2 (09:16→21:34)
--- NOTE | 2020-11-10 10:55 | P.PN_ITS ---
Subjective Subjective Date Patient Seen: 11/10/20 Time Patient Seen: 09:10 Interval history: This is a 75-year-old male admitted with an infection in his left pinky finger. He went to the operating room yesterday and there was involvement in his PIP joint of his left 5th finger. He will require prolonged antibiotics as an outpatient, but needs a few days of IV therapy while we wait for cultures from the operating room. His pain is much improved today, he he c ontinues to deny fevers, chills, shortness of breath, chest pain, cough, dizziness, abdominal pain, nausea, or vomiting. Exam Vital Signs (past 8 hours): - 11/10/20 05:00 11/10/20 08:00 11/10/20 08:10 Temperature 98.0 F 97.7 F Pulse Rate 71 72 Respiratory Rate 16 16 Blood Pressure 119/71 117/66 Pulse Oximetry 98 94 95 Oxygen Delivery Method Room Air Oxygen Flow Rate 0 Narrative Exam Narrative: Gen: Alert, oriented, well-developed 75 y.o. male, NAD HEENT: normocephalic, atraumatic, conjunctiva clear, sclera non-icteric, oral mucosa pink and moist Neck: supple, full ROM, no JVD, trachea is midline Resp: Lungs CTA, non-labored breathing CV: RRR, no murmur or rubs Abd: soft, non-tender, normoactive BTs Skin: no lesions or rashes, dry and intact Neuro: Alert and oriented X 4 w/no focal deficits. Speech clear and coherent. Extremities: left pinky bandages are c/d/i. No surrounding erythema in his hand. reports less tenderness. Psyche: normal mood and affect. Objective Labs Result Diagrams: 11/10/20 04:50 11/10/20 04:50 Labs: Laboratory Results - last 24 hr 11/10/20 11/10/20 11/10/20 04:50 04:50 04:50 WBC 3.4 L RBC 3.15 L Hgb 11.1 L Hct 32.6 L MCV 103.7 H MCH 35.2 H MCHC 34.0 RDW 13.4 Plt Count 135 L Neut % (Auto) 77.2 H Lymph % (Auto) 14.6 L [place] % (Auto) 8.1 Eos % (Auto) 0.0 L Baso % (Auto) 0.1 Neut # (Auto) 2700 Lymph # (Auto) 500 L [place] # (Auto) 300 Eos # (Auto) 0 Baso # (Auto) 0 Sodium 137 Potassium 4.4 Chloride 108 H Carbon Dioxide 22 BUN 16 Creatinine 0.67 Estimated GFR > 60.0 BUN/Creatinine Ratio 23.9 H Glucose 176 H Calcium 8.7 Total Bilirubin 0.2 Conjugated Bilirubin 0.0 Unconjugated Bilirubin 0.2 AST 23 ALT 19 Alkaline Phosphatase 49 Total Protein 6.2 L Albumin 3.3 L Globulin 2.9 Albumin/Globulin Ratio 1.1 [facility] Medical History Back pain Back pain with history of spinal surgery Enlarged prostate Hypothyroidism Pernicious anemia Surgical History History of hernia repair History of lumbar surgery Hx of transurethral resection of prostate Family History Father Heart disease Mother Old age Brother Arrhythmia Social History household members: spouse Smoking Status: Former smoker Tobacco: How many years used: 3 alcohol intake: current substance use type: does not use Assessment & Plan Assessment & Plan narrative: Cortez Bolaños is a 75 year old male admitted with left finger cellulitis and possible abscess. 1. Acute trauma and subsequent septic joint of the left 5th finger PIP joint, present on admission patient started on ceftriaxone and given dose of vanco in the ER. Continue ceftriaxone and vanco pending cultures from OR, currently without growth. Appreciate orthopedic surgery and Dr. Clinton, s/p I&D on 11/09 PM. -try to send bacterial culture by PCR at , ordered today. -likely discharge on PO antibiotics for at least 6 weeks, pending cultures. Will need MRSA coverage if cultures do not show growth. 2. Hypothyroidism, chronic and stable continue home dose of levothyroxine 100 mcg 3. Chronic right-sided polyneuropathy, chronic continue home dose of gabapentin 300 mg p.o. t.i.d. Consults: Dr. Clinton, Orthopedic Surgery consult and involvement is appreciated. Dispo: Probable discharge to home as soon as tomorrow depending on the progress with his L finger, admitted as inpatient. Probably home on oral antibiotics. Code Status: Full Code as discussed with patient Faby Bolaños, and surrogate/POA Quality VTE Deep Vein Thrombosis/Pulmonary Embolism Present on Admission: No
--- NOTE | 2020-11-10 12:44 | CM.DPC ---
DCP Cont: Discussed patient during team rounds. Plan is for home with oral antibiotics, but culture is still pending. Dr. Kelsey indicated that he can possibly go home tomorrow. P: DCP to continue to follow for any needs. Marisa Adamson RN/Publicist
[2020-11-11] VITALS (7 sets, daily range): BP systolic 120–132; BP diastolic 63–79; PULSE 61–71; RESP 15–16; TEMP 36.5–36.6; O2SAT 96–98
[2020-11-11 04:25] LABS: Vancomycin Trough 10.1 ug/mL (10-20)
[2020-11-11] MEDS: VANCOMYCIN 1,250 MG/250 ML PIGGYBACK 250 MG IV ×2 (06:31→16:14)
[2020-11-11] MEDS: OXYCODONE IR 5 MG TABLET PO ×3 (06:42→23:42)
[2020-11-11] MEDS: ACETAMINOPHEN 325 MG TABLET 975 MG PO ×3 (08:36→21:19)
[2020-11-11] MEDS: DOCUSATE 100 MG CAPSULE PO ×2 (08:36→21:20)
[2020-11-11] MEDS: ASPIRIN EC 81 MG TABLET PO ×2 (08:36→21:20)
--- NOTE | 2020-11-11 09:59 | P.PN_ITS ---
Subjective Subjective Date Patient Seen: 11/11/20 Time Patient Seen: 10:00 Interval history: This is a 75-year-old male admitted with an infection in his left pinky finger. He went to the operating room the evening of 11/09 and there was involvement in his PIP joint of his left 5th finger. He will require prolonged antibiotics as an outpatient, but needs a few days of IV therapy while we wait for cultures from the operating room which are now growing gram positive cocci. His pain is much improved today, he he continues to deny fevers, chills, shortness of breath, chest pain, cough, dizziness, abdominal pain, nausea, or vomiting. Exam Vital Signs (past 8 hours): - 11/11/20 02:47 11/11/20 07:50 11/11/20 08:00 Temperature 97.8 F Pulse Rate 61 Respiratory Rate 15 Blood Pressure 120/63 Pulse Oximetry 96 96 97 Oxygen Delivery Method Room Air Oxygen Flow Rate 0 Narrative Exam Narrative: Gen: Alert, oriented, well-developed 75 y.o. male, NAD HEENT: normocephalic, atraumatic, conjunctiva clear, sclera non-icteric, oral mucosa pink and moist Neck: supple, full ROM, no JVD, trachea is midline Resp: Lungs CTA, non-labored breathing CV: RRR, no murmur or rubs Abd: soft, non-tender, normoactive BTs Skin: no lesions or rashes, dry and intact Neuro: Alert and oriented X 4 w/no focal deficits. Speech clear and coherent. Extremities: left pinky bandages are c/d/i. No surrounding erythema in his hand. reports less tenderness. Psyche: normal mood and affect. Objective Labs Result Diagrams: 11/10/20 04:50 11/10/20 04:50 Labs: Laboratory Results - last 24 hr 11/11/20 03:58 Vancomycin Trough 10.1 PFSH Medical History Back pain Back pain with history of spinal surgery Enlarged prostate Hypothyroidism Pernicious anemia Surgical History History of hernia repair History of lumbar surgery Hx of transurethral resection of prostate Family History Father Heart disease Mother Old age Brother Arrhythmia Social History household members: spouse Smoking Status: Former smoker Tobacco: How many years used: 3 alcohol intake: current substance use type: does not use Assessment & Plan Assessment & Plan narrative: oCrtez Bolaños is a 75 year old male admitted with a septic joint of his L 5th finger (PIP joint). 1. septic joint of the left 5th finger PIP joint, present on admission, secondary to trauma - likely a result of a trauma on 11/[address] rash and cellulitis which spread into his PIP joint. He was not responding to outpatient oral antibiotics prior to admission. patient started on ceftriaxone and given dose of vanco in the ER. Continue ceftriaxone and vanco pending cultures from OR, currently with gram positive co cci. Appreciate orthopedic surgery and Dr. Clinton, s/p I&D on 11/09 PM. Plan for dressing change and wick change today. -tried to send bacterial culture by PCR at , ordered yesterday, likely unable to collect. -likely discharge on PO antibiotics for at least 6 weeks per orthopedics, pending cultures as above. 2. Hypothyroidism, chronic and stable continue home dose of levothyroxine 100 mcg 3. Chronic right-sided polyneuropathy, chronic continue home dose of gabapentin 300 mg p.o. t.i.d. Consults: Dr. Clinton, Orthopedic Surgery consult and involvement is appreciated. Dispo: Probable discharge to home as soon as tomorrow depending on the progress with his L finger and culture results, admitted as inpatient. Probably home on oral antibiotics. Code Status: Full Code as discussed with patient Faby Bolaños, and surrogate/POA Quality VTE Deep Vein Thrombosis/Pulmonary Embolism Present on Admission: No
--- NOTE | 2020-11-11 12:44 | P.PN_ITS ---
Subjective Subjective Date Patient Seen: 11/11/20 Time Patient Seen: 12:44 Interval history: Patient states he is doing well overall and is in mild discomfort at rest. At this time he denies fever, chills, nausea, chest pain, shortness of breath, or urinary retention. He does report pain at the base of the left 5th digit. Good sensation appreciated throughout the bilateral upper extremities. Exam Vital Signs (past 8 hours): - 11/11/20 07:50 11/11/20 08:00 Temperature 97.8 F Pulse Rate 61 Respiratory Rate 15 Blood Pressure 120/63 Pulse Oximetry 96 97 Oxygen Delivery Method Room Air Oxygen Flow Rate 0 Narrative Exam Narrative: 75-year-old male postop day 2. Patient is resting comfortably in bed, is in no acute distress, is alert and oriented x3. Skin is warm, dry, a nd pink. Good sensation appreciated throughout the bilateral upper extremities to light touch. Radial pulses palpated bilaterally. Dressing over the left 5th digit was removed to reveal incision site that is actively draining scant amounts of bright red blood. No purulence drainage noted after bandage was removed. Incision site is free of erythema, warmth, or induration. Good capillary refill appreciated. Const General: cooperative, healthy appearing and comfortable Resp Effort & Inspection: normal respiratory effort and able to speak in complete sentences Skin General: no rashes or lesions noted Objective Labs Result Diagrams: 11/10/20 04:50 11/10/20 04:50 Labs: Laboratory Results - last 24 hr 11/11/20 03:58 Vancomycin Trough 10.1 PFSH Medical History Back pain Back pain with history of spinal surgery Enlarged prostate Hypothyroidism Pernicious anemia Surgical History History of hernia repair History of lumbar surgery Hx of transurethral resection of prostate Family History Father Heart disease Mother Old age Brother Arrhythmia Social History household members: spouse Smoking Status: Former smoker Tobacco: How many years used: 3 alcohol intake: current substance use type: does not use Assessment & Plan Post-op Postoperative Procedures: Procedures Operation Date: 11/09/20 19:30 Actual Procedure Side Surgeon p Incision and Drainage of Septic PIP Joint of Small Finger Left Arias Clinton MD Postoperative day: 2 Postoperative status: doing well Postoperative plan: ambulate Postoperative plan narrative: Dressing over the incision site is to be changed as needed if it becomes damaged or soiled. Gauze wick was removed and a new 4 x 4 bandage was placed over the incision site. Anuradha dressing was then placed over the 4 x 4 bandage and taped securely to the patient's wrist. Patient is awaiting final cultures. Discharge is pending the final results of cultures, patient will be discharged home with appropriate antibiotic therapy. Quality VTE Deep Vein Thrombosis/Pulmonary Embolism Present on Admission: No
--- NOTE | 2020-11-11 15:00 | PC.NURSE ---
MAGNOLIA Su here, MAGNOLIA changed dressing and removed drain. New sterile dressing applied. Pt reports his hand is much less red and swollen than before. Can move fingers and has brisk cap refill. Acetaminophen has been holding him for pain.
[2020-11-11] MEDS: cefTRIAXone 1,000 MG in SODIUM CHLORIDE 0.9% 100 ML 200 ML IV (21:20)
[2020-11-11] MEDS: polyethylene glycoL 3350 17 GM POWD.PACK PO (21:20)
[2020-11-12 00:01] VITALS: BP 109/69; PULSE 62; RESP 16; TEMP 36.1; O2SAT 96
[2020-11-12] MEDS: OXYCODONE IR 5 MG TABLET PO (04:53)
[2020-11-12] MEDS: VANCOMYCIN 1,250 MG/250 ML PIGGYBACK 250 MG IV (04:54)
[2020-11-12 05:28] LABS: Add Manual Diff / Slide Review NO; Basophils Absolute Auto 0 /uL (0-100); Basophils Percent Auto 0.6 % (0-2); Eosinophils Absolute Auto 100 /uL (0-450); Eosinophils Percent Auto 2.2 % (2-4); Hematocrit 34.7 % (41-53); Hemoglobin 11.8 g/dL (13.5-17.5); Lymphocytes Absolute Auto 2000 /uL (1100-4500); Lymphocytes Percent Auto 55.3 % (25-40); Mean Corpuscular HGB Conc 33.9 % (30-36); Mean Corpuscular Hemoglobin 34.9 PG (26-34); Monocytes Absolute Auto 600 /uL (0-900); Monocytes Percent Auto 17.2 % (3-14); Neutrophils Absolute Auto 900 /uL (1500-7000); Neutrophils Percent Auto 24.7 % (50-75); Platelet Count 161 X10^3/uL (150-400); Red Blood Cell Count 3.37 X10^6/uL (4.5-5.9); Red Cell Distribution Width 13.6 % (11.6-14.8); White Blood Cell Count 3.6 X10^3/uL (4.5-11.0)
[2020-11-12 05:36] LABS: BUN Creatinine Ratio 32.4 (6-22); Blood Urea Nitrogen 22 mg/dL (9-20); Calcium 9.2 mg/dL (8.4-10.2); Carbon Dioxide 26 mmol/L (22-32); Chloride 106 mmol/L (98-107); Estimated Glomerular Filt Rate > 60.0 mL/min (>60); Glucose 102 mg/dL (80-110); HEMOLYSIS < 15 (0-50); Potassium 4.1 mmol/L (3.4-5.1); Sodium 136 mmol/L (137-145)
[2020-11-12 08:20] VITALS: BP 119/83; PULSE 62; RESP 16; TEMP 36.3; O2SAT 96
[2020-11-12] MEDS: ACETAMINOPHEN 325 MG TABLET 975 MG PO ×2 (08:41→14:35)
[2020-11-12] MEDS: DOCUSATE 100 MG CAPSULE PO (08:42)
[2020-11-12] MEDS: ASPIRIN EC 81 MG TABLET PO (08:42)
[2020-11-12] MEDS: SODIUM CHLORIDE 0.9% FLUSH 10 ML IV (11:33)
--- NOTE | 2020-11-12 13:33 | P.PN_ITS ---
Subjective Subjective Date Patient Seen: 11/12/20 Time Patient Seen: 13:33 Interval history: Patient states he is doing well overall and is in minimal discomfort at rest. He denies fever, chills, nausea, chest pain, shortness of breath, or urinary retention. He reports good sensation throughout the bilateral upper extremities. Exam Vital Signs (past 8 hours): - 11/12/20 08:20 Temperature 97.4 F L Pulse Rate 62 Respiratory Rate 16 Blood Pressure 119/83 Pulse Oximetry 96 Oxygen Delivery Method Room Air Oxygen Flow Rate 0 Narrative Exam Narrative: 75-year-old male postop day 3. Patient is resting comfortably in bed, is in no acute distress, is alert and oriented x3. Skin is warm and dry. Dressing over the incision site is clean, dry, and intact. Mild tenderness to palpation appreciated to the base of the left 5th digit. Slight swelling noted the medial aspect of the left palm. Good capillary refill. Good sensation appreciated throughout the bilateral upper extremities to light touch Const General: cooperative, healthy appearing and comfortable Resp Effort & Inspection: normal respiratory effort and able to speak in complete sentences Skin General: no rashes or lesions noted Objective Labs Result Diagrams: 11/12/20 05:00 11/12/20 05:00 Labs: Laboratory Results - last 24 hr 11/12/20 11/12/20 05:00 05:00 WBC 3.6 L RBC 3.37 L Hgb 11.8 L Hct 34.7 L MCV 103.0 H MCH 34.9 H MCHC 33.9 RDW 13.6 Plt Count 161 Neut % (Auto) 24.7 L Lymph % (Auto) 55.3 H [place] % (Auto) 17.2 H Eos % (Auto) 2.2 Baso % (Auto) 0.6 Neut # (Auto) 900 L Lymph # (Auto) 2000 [place] # (Auto) 600 Eos # (Auto) 100 Baso # (Auto) 0 Sodium 136 L Potassium 4.1 Chloride 106 Carbon Dioxide 26 BUN 22 H Creatinine 0.68 Estimated GFR > 60.0 BUN/Creatinine Ratio 32.4 H Glucose 102 Calcium 9.2 PFSH Medical History Back pain Back pain with history of spinal surgery Enlarged prostate Hypothyroidism Pernicious anemia Surgical History History of hernia repair History of lumbar surgery Hx of transurethral resection of prostate Family History Father Heart disease Mother Old age Brother Arrhythmia Social History household members: spouse Smoking Status: Former smoker Tobacco: How many years used: 3 alcohol intake: current substance use type: does not use Assessment & Plan Post-op Postoperative Procedures: Procedures Operation Date: 11/09/20 19:30 Actual Procedure Side Surgeon p Incision and Drainage of Septic PIP Joint of Small Finger Left Arias Clinton MD Postoperative day: 3 Postoperative status: doing well Postoperative plan narrative: Patient is to keep dressing clean, dry, and intact. Current pain management regimen is to be continued as is adequately controlled the patient's pain level at this time. Patient awaiting final culture result, at that time he will be placed on targeted antibiotic therapy. Quality VTE Deep Vein Thrombosis/Pulmonary Embolism Present on Admission: No
[2020-11-12 16:00] VITALS: BP 132/75; PULSE 69; RESP 20; TEMP 36.6; O2SAT 96
--- NOTE | 2020-11-12 19:56 | PC.NURSE ---
Discharge Note Patient A&O, VSS, RA, no complaints of pain or discomfort. Dressing changed per order. Discharge packet reviewed with patient along with follow-up instructions, reminded patient to pick up driver prescriptions at local pharmacy and take full dose of oral antibiotics. All questions/concerns addressed. PIV discontinued. All belongings packed and given to patient along with discharge packet. Patient taken down via wheelchair to POV.
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
== END 2020-11-12 17:45 | disposition home or self-care (01) | DRG 514 ==
LOC: ED 21:14 → AC 21:47
PROVIDERS: Internal Medicine; Orthopaedic Surgery; Admitting Provider Nurse Practitioner Family; Emergency Provider Emergency Medicine; PCP Family Medicine; Referring Provider Emergency Medicine; Visit Provider Nurse Practitioner Family
PROC: 0RBX0ZZ Excision of Left Finger Phalangeal Joint, Open Approach (ICD-10-PCS; principal; 2020-11-09 19:30)
DX: M00.842 Arthritis due to other bacteria, left hand (principal); L03.012 Cellulitis of left finger; S61.207A Unspecified open wound of left little finger without damage to nail, initial encounter; B95.4 Other streptococcus as the cause of diseases classified elsewhere; G62.9 Polyneuropathy, unspecified; E03.9 Hypothyroidism, unspecified; Z20.822 Contact with and (suspected) exposure to COVID-19; V18.0XXA Pedal cycle driver injured in noncollision transport accident in nontraffic accident, initial encounter; Z87.891 Personal history of nicotine dependence
CPT/HCPCS: 36415; 73140; 80048; 80076; 80202; 83605; 83735; 84145; 85007; 85025; 87040; 87070; 87075; 87077; 87186; 87205; 87635; 87801; 94760; 96365; 99281; 99284; C9803; J0696; J1100; J1170; J2405; J2704; J3010

== ENCOUNTER → 2021-01-27 10:48 | Outpatient (CLI) | payer MEDICARE, OTHER, SELFPAY ==
[2020-12-23 13:18] VITALS: BMI 28.5
[2021-01-27 11:57] LABS: HEMOLYSIS < 15 (0-50); Iron 130 ug/dL (49-181)
[2021-01-27 12:08] LABS: Percent Iron Saturation 42 % (20-50); Total Iron Binding Capacity 310 ug/dL (261-462); Transferrin 247 mg/dL (206-381)
[2021-01-27 12:28] LABS: Thyroid Stimulating Hormone 0.121 uIU/mL (0.47-4.68)
[2021-01-27 12:51] LABS: Vitamin B12 911 pg/mL (239-931)
== END ==
PROVIDERS: PCP Family Medicine; Referring Provider Family Medicine; Visit Provider Family Medicine
DX: D51.0 Vitamin B12 deficiency anemia due to intrinsic factor deficiency (principal); R94.6 Abnormal results of thyroid function studies
CPT/HCPCS: 36415; 82607; 83540; 83550; 84439; 84443

== ENCOUNTER → 2021-04-19 06:59 | Outpatient (CLI) | payer MEDICARE, OTHER, SELFPAY ==
[2020-12-23 13:18] VITALS: BMI 28.5
[2021-04-19 08:38] LABS: Hematocrit 37.8 % (41-53); Hemoglobin 12.8 g/dL (13.5-17.5); Mean Corpuscular HGB Conc 33.8 % (30-36); Mean Corpuscular Volume 103.5 fL (80-100); Platelet Count 122 X10^3/uL (150-400); Red Blood Cell Count 3.65 X10^6/uL (4.5-5.9); Red Cell Distribution Width 14.9 % (11.6-14.8)
[2021-04-19 08:39] LABS: Add Manual Diff / Slide Review YES
[2021-04-19 08:58] LABS: Anisocytosis 1+; Neutrophils Absolute Manual 340 /uL (3000-5900); Total Cells Counted 100
[2021-04-19 09:10] LABS: Alanine Aminotransferase 24 IU/L (<50); Albumin Globulin Ratio 1.7 (1.0-2.8); Alkaline Phosphatase 45 U/L (38-126); Aspartate Aminotransferase 30 IU/L (17-59); BUN Creatinine Ratio 18.6 (6-22); Bilirubin Total 0.5 mg/dL (0.2-1.3); Blood Urea Nitrogen 16 mg/dL (9-20); Calcium 9.2 mg/dL (8.4-10.2); Carbon Dioxide 31 mmol/L (22-32); Chloride 103 mmol/L (98-107); Estimated Glomerular Filt Rate > 60.0 mL/min (>60); Globulin 2.4 g/dL (1.7-4.1); Glucose 84 mg/dL (80-110); HEMOLYSIS < 15 (0-50); Sodium 139 mmol/L (137-145); Total Protein 6.4 g/dL (6.3-8.2)
[2021-04-19 09:26] LABS: Free T4, Direct Thyroxine 0.78 ng/dL (0.78-2.19)
[2021-04-19 09:40] LABS: Prostate Specific Antigen Scrn 3.05 ng/mL (0.1-4.0); Thyroid Stimulating Hormone 1.33 uIU/mL (0.47-4.68)
== END ==
PROVIDERS: PCP Family Medicine; Referring Provider Family Medicine; Visit Provider Family Medicine
DX: E03.9 Hypothyroidism, unspecified (principal); Z12.5 Encounter for screening for malignant neoplasm of prostate; D51.0 Vitamin B12 deficiency anemia due to intrinsic factor deficiency; N40.0 Benign prostatic hyperplasia without lower urinary tract symptoms; R94.6 Abnormal results of thyroid function studies
CPT/HCPCS: 36415; 80053; 84439; 84443; 85007; 85025; G0103

== ENCOUNTER → 2021-07-28 07:53 | Outpatient (CLI) | payer MEDICARE, OTHER, SELFPAY ==
[2020-12-23 13:18] VITALS: BMI 28.5
[2021-07-28 09:16] LABS: Free T4, Direct Thyroxine 1.17 ng/dL (0.78-2.19)
[2021-07-28 09:29] LABS: Thyroid Stimulating Hormone 0.228 uIU/mL (0.47-4.68)
== END ==
PROVIDERS: PCP Family Medicine; Referring Provider Family Medicine; Visit Provider Family Medicine
DX: D51.0 Vitamin B12 deficiency anemia due to intrinsic factor deficiency (principal); D72.819 Decreased white blood cell count, unspecified
CPT/HCPCS: 36415; 84439; 84443

== ENCOUNTER → 2021-08-11 08:03 | Outpatient (CLI) | payer MEDICARE, OTHER, SELFPAY ==
[2021-08-02 13:05] VITALS: BMI 28.5
[2021-08-11 11:42] LABS: Prostate Specific Antigen 3.94 ng/mL (0.10-4.00)
== END ==
PROVIDERS: PCP Family Medicine; Referring Provider Urology; Visit Provider Urology
DX: R39.9 Unspecified symptoms and signs involving the genitourinary system (principal)
CPT/HCPCS: 36415; 84153

== ENCOUNTER → 2021-11-04 07:58 | Outpatient (CLI) | payer MEDICARE, OTHER, SELFPAY ==
[2021-08-02 13:05] VITALS: BMI 28.5
--- NOTE | 2021-11-04 07:59 | DI.RAD.S_ITS ---
PROCEDURE: XR LUMBAR SPINE MIN 4V INDICATIONS: BACK PAIN TECHNIQUE: 5 views of the lumbar spine were acquired, including bilateral oblique views. COMPARISON: [facility], , L-SPINE MINIMUM 4 VIEWS, 04/27/2017, 9:43. FINDINGS: Bones: 5 nonrib-bearing vertebrae are present. Postsurgical changes compatible with L3-L4, and L4-L5 right laminotomies. There is there is approximately 4 millimeters of L2-L3, L3-L4 and L4-L5 retrolisthesis. No vertebral body compression fractures. No suspicious bony lesions. Moderate degenerative disc changes noted throughout the lumbar spine. Mild L4-L5 and L5-S1 facet arthropathy. Soft tissues: Overlying bowel gas pattern is normal. No suspicious soft tissue calcifications. Oblique images: No pars defects. IMPRESSION: 1. Multilevel degenerative disc disease. 2. Multilevel facet arthropathy. 3. No fracture. No acute osseous lesion. If symptoms and/or clinical suspicion for pathology persists, evaluation with MRI should be considered for further assessment. Dictated by: Eladia Ny MD, PhD on 11/04/2021 at 8:40 Approved by: Eladia Ny MD, PhD on 11/04/2021 at 8:42
== END ==
PROVIDERS: PCP Family Medicine; Referring Provider Physical Medicine & Rehabilitation; Visit Provider Physical Medicine & Rehabilitation
DX: M54.9 Dorsalgia, unspecified (principal); M51.36 Other intervertebral disc degeneration, lumbar region; M47.816 Spondylosis without myelopathy or radiculopathy, lumbar region
CPT/HCPCS: 72110

== ENCOUNTER → 2021-11-08 12:29 | Outpatient (CLI) | payer MEDICARE, OTHER, SELFPAY ==
[2021-08-02 13:05] VITALS: BMI 28.5
[2021-11-08 14:09] LABS: COVID19 -Nasal RAPID Negative (Negative)
== END ==
PROVIDERS: PCP Family Medicine; Visit Provider Physical Medicine & Rehabilitation
DX: Z20.822 Contact with and (suspected) exposure to COVID-19 (principal)
CPT/HCPCS: 87635; 99215

== ENCOUNTER 2021-11-11 07:17 | Outpatient (CLI) | payer MEDICARE, OTHER, SELFPAY ==
[2021-08-02 13:05] VITALS: BMI 28.5
[2021-11-11] VITALS (9 sets, daily range): BP systolic 107–133; BP diastolic 64–77; PULSE 64–71; RESP 13–20; TEMP 36.6; O2SAT 96–100
--- NOTE | 2021-11-11 07:20 | DI.RAD.S_ITS ---
PROCEDURE: PAIN L INTERLAMINAR/CAUDAL INJ INDICATIONS: SPONDYLOSIS COMPARISON: None. FINDINGS: Fluoroscopic spot filming was performed to verify placement of spinal needles at the a lower thoracic level, possibly T10-T11. Appropriate location(s) of the needle tip(s) was confirmed by injection of iodinated contrast. IMPRESSION: Fluoroscopic imaging utilized during pain injection. Dictated by: Alvino Hagen M.D. on 11/11/2021 at 15:52 Approved by: Alvino Hagen M.D. on 11/11/2021 at 15:57
[2021-11-11] MEDS: MIDAZOLAM 2 MG/2 ML VIAL IV (08:33)
[2021-11-11] MEDS: IOPAMIDOL 15 ML VIAL 3 ML INJ (08:40)
[2021-11-11] MEDS: BUPIVACAINE 0.25% (PF) VIAL 2 ML INJ (08:40)
[2021-11-11] MEDS: DEXAMETHASONE 10 MG/ML VIAL 30 MG INJ (08:41)
--- NOTE | 2021-11-11 08:51 | PM.PROC.IR.1 ---
Date/Time/Diagnoses Date of procedure: 11/11/21 Time of procedure: 08:51 Pre-procedure diagnosis: Thoracic stenosis with HNP Post-procedure diagnosis: same Procedure Notes Procedure: Fluoroscopic guided, contrast controlled T8-9 translaminar epidural steroid injection with conscious sedation. Indications: Cortez is referred by Dr. Grullon for treatment of thoracic DDD/DJD with radiculopathy Physician: Mane Verdugo Total Fluoroscopy time (seconds): 8 Total sedation minutes: 14 Complications: none Procedure in detail & Post-procedure care: DESCRIPTION OF PROCEDURE Fluoroscopic guided, contrast controlled T9/10 translaminar epidural steroid injection with conscious sedation. Following review of allergy review potential side effects and complications, including, but not necessarily limited to, infection, allergic reaction, local tissue breakdown, temporary as well as permanent nerve injury, stroke, paralysis and possible , the patient indicated that they understood and agreed to proceed. An informed consent document was signed by the patient, witnessed by the nurse, and placed in the patient's chart. Additionally other treatment options including modalities, medications and physical therapy were reviewed with the patient. After review of previous anaesthesic history and IV conscious sedation the patient was deemed safe to proceed with today's procedure with IV conscious sedation as ASA class II designation. Safety time-out was performed to confirm patient ID, procedure to be performed and site of procedure. IV sedation was accomplished with a combination of 2mg of Versed administered by the RN after DO order, titrated to patient comfort during the course of the procedure while the patient remained responsive to all verbal commands In the prone position, following sterile prep and drape of the thoracic region the T9/10 translaminar space was identified fluoroscopically. The skin was anesthetized via 25 gauge 1.5inch needle with 1% lidocaine solution. At this point a 22gauge epidural needle was atraumatically introduced and advanced under fluoroscopic guidance into the region of the T9/10 translaminar space depth was confirmed on lateral view. Radiographic data, including multiple fluoroscopic views of the thoracic spine, reveals spinal needle at the T9/10 translaminar space. Lateral views then showed the placement of the needle in the epidural space. Subsequent view show contrast material flowing superiorly and inferiorly in the epidural space. No vascular or intrathecal uptake is observed. At this point using loss of resistance technique with saline and the epidural space was entered. This was confirmed followed negative aspiration and injection of approximately 1.5cc of Isovue 200 showed excellent epidural flow without vascular or intrathecal uptake. At this point, 1 cc of 1% lidocaine solution was admitted as a test dose and the patient was observed for an appropriate period of time without signs or symptoms of complications, including abdominal pain, shortness of breath, bilateral upper and lower extremity weakness, nausea and vomiting, prior to steroid injection. Subsequently, 2cc or 20mg of dexamethasone was then injected without incident. The patient tolerated the procedure well without signs of complications and subsequently was transferred to the recovery room for further monitoring. The patient was then transferred to the recovery area with their observed for an appropriate time after the injection. Patient reported a VAS score of 7 prior to the procedure and post-procedure VAS of 2.
== END 2021-11-11 09:19 | disposition home or self-care (01) ==
LOC: RAD 07:19
PROVIDERS: PCP Family Medicine; Referring Provider Physical Medicine & Rehabilitation; Visit Provider Physical Medicine & Rehabilitation
DX: M48.04 Spinal stenosis, thoracic region (principal); M51.14 Intervertebral disc disorders with radiculopathy, thoracic region
CPT/HCPCS: 62321; 62323; 99152; J0702; J1100; J2250

== ENCOUNTER → 2022-01-24 11:01 | Outpatient (CLI) | payer MEDICARE, OTHER, SELFPAY ==
[2021-08-02 13:05] VITALS: BMI 28.5
[2022-01-24 14:27] LABS: COVID19 -Nasal RAPID Negative (Negative)
== END ==
PROVIDERS: PCP Family Medicine; Visit Provider Physical Medicine & Rehabilitation
DX: Z20.822 Contact with and (suspected) exposure to COVID-19 (principal)
CPT/HCPCS: 87635; C9803

== ENCOUNTER 2022-01-25 13:00 | Outpatient (CLI) | payer MEDICARE, OTHER, SELFPAY ==
[2021-08-02 13:05] VITALS: BMI 28.5
[2022-01-25] VITALS (9 sets, daily range): BP systolic 99–125; BP diastolic 66–78; PULSE 72–81; RESP 13–21; TEMP 36.7; O2SAT 97–99
--- NOTE | 2022-01-25 13:02 | DI.RAD.S_ITS ---
PROCEDURE: PAIN L/S TRANSFORAMINAL INJECT INDICATIONS: SPONDYLOSIS COMPARISON: None. FINDINGS: Fluoroscopic spot filming was performed to verify placement of spinal needles at the right L4-5 and L5-S1 level(s), as labeled on the films. Appropriate location(s) of the needle tip(s) was confirmed by injection of iodinated contrast. IMPRESSION: Fluoroscopic support for transforaminal epidural steroid injections at the right L4-5 and L5-S1 levels. Please see separate procedure note for further details. Dictated by: Joe Prasad M.D. on 01/25/2022 at 14:16 Approved by: Joe Prasad M.D. on 01/25/2022 at 14:17
[2022-01-25] MEDS: MIDAZOLAM 2 MG/2 ML VIAL IV (13:29)
[2022-01-25] MEDS: BETAMETHASONE 30 MG/5 ML MDV 12 MG INJ (13:34)
[2022-01-25] MEDS: IOPAMIDOL 15 ML VIAL 3 ML INJ (13:34)
[2022-01-25] MEDS: BUPIVACAINE 0.25% (PF) VIAL 2 ML INJ (13:34)
[2022-01-25] MEDS: DEXAMETHASONE 10 MG/ML VIAL 20 MG INJ (13:34)
--- NOTE | 2022-01-25 13:48 | P.PCN_ITS ---
Date/Time/Diagnoses Date of procedure: 01/25/22 Time of procedure: 13:48 Pre-procedure diagnosis: 1. FORAMINAL STENOSIS WITH LE SYMPTOMS Post-procedure diagnosis: same Procedure Notes Procedure: 1. FLUOROSCOPICALLY GUIDED CONTRAST CONTROLLED TRANSFORAMINAL EPIDURAL STEROID INJECTION - RIGHT L4/5 TFESI Indications: Cortez is referred by Dr. Grullon for treatment of Foraminal Stenosis with Right LE Symptoms Physician: Mane Verdugo Total Fluoroscopy time (seconds): 12 Total sedation minutes: 16 Complications: none Procedure in detail & Post-procedure care: FINDINGS Foraminal Nerve Root Compression secondary to disc disease and facet hypertrophy DESCRIPTION OF PROCEDURE Following review of allergy and review of potential side effects and complications, including, but not necessarily limited to, infection, allergic reaction, local tissue breakdown, stroke, temporary or permanent nerve injury, paralysis, and possible , the patient indicated that the patient understood and agreed to proceed. An informed consent document was signed by the patient, witnessed by a nurse, and placed in the patient's chart. Additionally, other treatment options including medications, modalities, and physical therapy were reviewed with the patient. After review of previous anaesthesic history and IV conscious sedation the patient was deemed safe to proceed with today?s procedure with IV conscious sedation as ASA class II designation. Safety time-out was performed to confirm patient ID, procedure to be performed and site of procedure. IV sedation was accomplished with a combination of 2mg of Versed was administered by the RN after DO order, titrated to patient comfort during the course of the procedure while the patient remained responsive to all verbal commands In the prone position following sterile prep and drape of the lumbar region, the right L4/5 posterior neuroforamen was identified fluoroscopically. The skin was anesthetized via a 25-gauge 1.5-inch needle with 1% lidocaine solution. At this point, a 25-gauge 3.5-inch spinal needle was atraumatically introduced and advanced under fluoroscopic guidance through the posterior right L4/5 neuroforamen to approximately the anterior aspect of the canal. Depth was confirmed on lateral view. Following negative aspiration, injection of approximately 1.5cc of Isovue 200 under live fluoroscopy in the AP view confirmed excellent flow along the nerve root, into the epidural space without vascular or intrathecal uptake observed Radiological data, including multiple fluoroscopic views of the lumbosacral spine, reveal a spinal needle at the right L4/5 posterior neuroforamen. Subsequent views show flow of contrast material flowing superiorly and inferiorly along the nerve root confirming epidural flow. Subsequently, a test dose of 1.5 cc of 1% lidocaine solution was administered and patient was observed for two minutes for signs or symptoms of complications, including abdominal pain, shortness of breath, bilateral upper or lower extremity weakness, nausea and vomiting, prior to steroid injection. At this point, a total of 3cc or 20mg of dexamethasone and 6mg of betamethasone was injected without incident. The procedure tolerated the procedure well without signs or symptoms of complications prior to transfer to the recovery area continued monitoring without incident. The patient was then transferred to the recovery area where they were observed for an appropriate time after the injection. The patient reported a VAS score of 7 prior to the procedure and a post- procedure VAS of 0. POST OP INSTRUCTIONS The patient was provided a Pain Log to continue to record their response to the target-specific procedure prior to follow-up visit with their referring physician. Additionally, specific post-injection care instructions and a contact number to our office were provided if concerns arise regarding possible complications associated with the procedure are suspected.
--- NOTE | 2022-01-25 13:49 | P.PCN_ITS ---
Date/Time/Diagnoses Date of procedure: 01/25/22 Time of procedure: 13:49 Pre-procedure diagnosis: FORAMINAL STENOSIS WITH LE SYMPTOMS Post-procedure diagnosis: same Procedure Notes Procedure: 1. FLUOROSCOPICALLY GUIDED CONTRAST CONTROLLED TRANSFORAMINAL EPIDURAL STEROID INJECTION - RIGHT L5/S1 TFESI Indications: Cortez is referred by Dr. Grullon for treatment of Foraminal Stenosis with Right LE Symptoms Physician: Mane Verdugo Total Fluoroscopy time (seconds): 12 Total sedation minutes: 16 Complications: none Procedure in detail & Post-procedure care: FINDINGS Foraminal Nerve Root Compression secondary to disc disease and facet hypertrophy DESCRIPTION OF PROCEDURE Following review of allergy and review of potential side effects and complications, including, but not necessarily limited to, infection, allergic reaction, local tissue breakdown, stroke, temporary or permanent nerve injury, paralysis, and possible , the patient indicated that the patient understood and agreed to proceed. An informed consent document was signed by the patient, witnessed by a nurse, and placed in the patient's chart. Additionally, other treatment options including medications, modalities, and physical therapy were r eviewed with the patient. After review of previous anaesthesic history and IV conscious sedation the patient was deemed safe to proceed with today?s procedure with IV conscious sedation as ASA class II designation. Safety time-out was performed to confirm patient ID, procedure to be performed and site of procedure. IV sedation was accomplished with a combination of 2mg of Versed was administered by the RN after DO order, titrated to patient comfort during the course of the procedure while the patient remained responsive to all verbal commands In the prone position following sterile prep and drape of the lumbar region, the right L5/S1 posterior neuroforamen was identified fluoroscopically. The skin was anesthetized via a 25-gauge 1.5-inch needle with 1% lidocaine solution. At this point, a 25-gauge 3.5-inch spinal needle was atraumatically introduced and advanced under fluoroscopic guidance through the posterior right L5/S1 neuroforamen to approximately the anterior aspect of the canal. Depth was confirmed on lateral view. Following negative aspiration, injection of approximately 1.5cc of Isovue 200 under live fluoroscopy in the AP view confirmed excellent flow along the nerve root, into the epidural space without vascular or intrathecal uptake observed Radiological data, including multiple fluoroscopic views of the lumbosacral spine, reveal a spinal needle at the right L5/S1 posterior neuroforamen. Subsequent views show flow of contrast material flowing superiorly and inferiorly along the nerve root confirming epidural flow. Subsequently, a test dose of 1.5 cc of 1% lidocaine solution was administered and patient was observed for two minutes for signs or symptoms of complications, including abdominal pain, shortness of breath, bilateral upper or lower ex tremity weakness, nausea and vomiting, prior to steroid injection. At this point, a total of 3cc or 20mg of dexamethasone and 6mg of betamethasone was injected without incident. The procedure tolerated the procedure well without signs or symptoms of complications prior to transfer to the recovery area continued monitoring without incident. The patient was then transferred to the recovery area where they were observed for an appropriate time after the injection. The patient reported a VAS score of 7 prior to the procedure and a post- procedure VAS of 0. POST OP INSTRUCTIONS The patient was provided a Pain Log to continue to record their response to the target-specific procedure prior to follow-up visit with their referring physician. Additionally, specific post-injection care instructions and a contact number to our office were provided if concerns arise regarding possible complications associated with the procedure are suspected.
--- NOTE | 2022-01-25 14:57 | PC.NURSE ---
1405- Patient still unsteady on right leg continues to buckle when standing. 1430- patient has more strength in leg but continues to feel weak and unable to bear full weight. updated that holding patient. 1445- Patient is at baseline able to take steps with cane. Reports he feels safe.
== END 2022-01-25 14:55 | disposition home or self-care (01) ==
PROVIDERS: PCP Family Medicine; Referring Provider Physical Medicine & Rehabilitation; Visit Provider Physical Medicine & Rehabilitation
DX: M48.07 Spinal stenosis, lumbosacral region; M51.17 Intervertebral disc disorders with radiculopathy, lumbosacral region; M48.061 Spinal stenosis, lumbar region without neurogenic claudication; M51.16 Intervertebral disc disorders with radiculopathy, lumbar region
CPT/HCPCS: 64483; 64484; 64494; 99152; J0702; J1100; J2250; J3490

== ENCOUNTER → 2022-03-03 10:46 | Outpatient (CLI) | payer MEDICARE, OTHER, SELFPAY ==
[2021-08-02 13:05] VITALS: BMI 28.5
--- NOTE | 2022-03-03 | DI.CT.S_ITS ---
PROCEDURE: CT LUMBAR SPINE WO CON INDICATIONS: SPINAL STENOSIS OF LUMBAR REGION TECHNIQUE: Noncontrast 3 mm thick sections acquired from the T12 level to the sacrum. 0.8 mm direct axial images are reformatted. Sagittal and coronal reformats were constructed. For radiation dose reduction, the following was used: automated exposure control. COMPARISON: [facility], , MRI L-SPINE W/WO CONTRAST, 10/20/2021, 11:15. FINDINGS: Image quality: Excellent. Bones: No acute vertebral body compression fractures. No suspicious lytic or blastic bony lesions. No pars defects. There is minimal levoconvex lumbar scoliotic curvature seen. Minimal retrolisthesis is seen at L1-L2 and at L2-L3. There is mild retrolisthesis seen at L4-L5. T12-L1: No significant abnormality is seen. Mild bridging anterior osteophytes are seen. L1-L2: Moderate loss of disc height is seen. Endplate irregularity and sclerosis can be seen. Bridging endplate osteophytes are seen anteriorly and on the left. At least moderate disc bulge is seen. Mild facet joint hypertrophy is seen. There is moderate bilateral neural foraminal narrowing seen, left worse than right. Mild central canal narrowing is seen. L2-L3: There is at least moderate loss of disc height seen, which is worst on the right. Endplate irregularity and sclerosis can be seen. Moderate to prominent disc bulge is seen. There is a superimposed central disc protrusion. Mild facet joint hypertrophy is seen. There is at least moderate left-sided and moderate to severe right-sided neural foraminal narrowing seen. At least moderate central canal narrowing is seen. L3-L4: The disc height is relatively well preserved. At least moderate disc bulge is seen. There is a superimposed central disc protrusion. Postoperative changes are seen, with removal of portions of the posterior elements on the right. There is at least moderate bilateral neural foraminal narrowing seen, right worse than left. No significant central canal narrowing is seen. L4-L5: Mild loss of disc height is seen. Endplate irregularity and sclerosis can be seen. At least moderate disc bulge is seen, with a central disc protrusion. Mild facet joint hypertrophy is seen. Prior right hemilaminectomy change can be seen. There is moderate to severe bilateral neural foraminal narrowing seen. No significant central canal narrowing is seen. L5-S1: Moderate to severe loss of disc height is seen. Endplate irregularity and sclerosis can be seen. Bridging endplate osteophytes are seen on the left and on the right. At least moderate disc bulge is seen. There is moderate to severe bilateral neural foraminal narrowing seen, left worse than right. No significant central canal narrowing is seen. Soft tissues: No retroperitoneal masses or hematomas. Visualized aorta is normal in caliber. IMPRESSION: Multiple levels of lumbar spine degenerative change are seen, which are worst inferiorly. The degenerative changes are similar to the prior outside MRI. Prior postoperative changes are seen, with removal of portions of the posterior elements on the right at L3-L4 and L4-L5. Dictated by: Jatin Monroy M.D. on 03/03/2022 at 12:04 Approved by: Jatin Monroy M.D. on 03/03/2022 at 12:10
== END ==
PROVIDERS: PCP Family Medicine; Referring Provider Orthopaedic Surgery Orthopaedic Surgery of the Spine; Visit Provider Orthopaedic Surgery Orthopaedic Surgery of the Spine
DX: M48.062 Spinal stenosis, lumbar region with neurogenic claudication (principal); M47.816 Spondylosis without myelopathy or radiculopathy, lumbar region
CPT/HCPCS: 72131

== ENCOUNTER → 2022-04-11 07:24 | Outpatient (CLI) | payer MEDICARE, OTHER, SELFPAY ==
[2021-08-02 13:05] VITALS: BMI 28.5
[2022-04-11 08:34] LABS: Add Manual Diff / Slide Review NO; Basophils Absolute Auto 0 /uL (0-100); Basophils Percent Auto 0.4 % (0-2); Eosinophils Absolute Auto 100 /uL (0-450); Hematocrit 39.5 % (41-53); Hemoglobin 13.3 g/dL (13.5-17.5); Lymphocytes Absolute Auto 1600 /uL (1100-4500); Lymphocytes Percent Auto 59.4 % (25-40); Mean Corpuscular HGB Conc 33.7 % (30-36); Mean Corpuscular Hemoglobin 35.4 PG (26-34); Monocytes Absolute Auto 700 /uL (0-900); Monocytes Percent Auto 27.7 % (3-14); Neutrophils Absolute Auto 300 /uL (1500-7000); Neutrophils Percent Auto 10.5 % (50-75); Platelet Count 110 X10^3/uL (150-400); Red Blood Cell Count 3.76 X10^6/uL (4.5-5.9); Red Cell Distribution Width 14.9 % (11.6-14.8); White Blood Cell Count 2.6 X10^3/uL (4.5-11.0)
[2022-04-11 08:39] LABS: Hemoglobin A1C% w Est Avg Glu 5.7 % (4.0-6.0)
[2022-04-11 09:50] LABS: BUN Creatinine Ratio 27.5 (6-22); Blood Urea Nitrogen 22 mg/dL (9-20); Calcium 8.9 mg/dL (8.4-10.2); Carbon Dioxide 28 mmol/L (22-32); Chloride 102 mmol/L (98-107); Estimated Glomerular Filt Rate > 60 mL/min (>60); Glucose 89 mg/dL (80-110); HEMOLYSIS < 15 (0-50); Potassium 4.3 mmol/L (3.4-5.1); Sodium 138 mmol/L (137-145)
== END ==
PROVIDERS: PCP Family Medicine; Referring Provider Orthopaedic Surgery Orthopaedic Surgery of the Spine; Visit Provider Orthopaedic Surgery Orthopaedic Surgery of the Spine
DX: Z01.818 Encounter for other preprocedural examination (principal); Z01.812 Encounter for preprocedural laboratory examination; R73.9 Hyperglycemia, unspecified
CPT/HCPCS: 36415; 80048; 83036; 85025; 93005

== ENCOUNTER → 2022-05-10 09:59 | Outpatient (CLI) | payer MEDICARE, OTHER, SELFPAY ==
[2021-08-02 13:05] VITALS: BMI 28.5
[2022-05-10 10:50] LABS: COVID19 -Nasal RAPID Negative (Negative)
== END ==
PROVIDERS: PCP Family Medicine; Referring Provider Orthopaedic Surgery Orthopaedic Surgery of the Spine; Visit Provider Orthopaedic Surgery Orthopaedic Surgery of the Spine
DX: Z20.822 Contact with and (suspected) exposure to COVID-19 (principal)
CPT/HCPCS: 87635; C9803

== ENCOUNTER 2022-05-11 06:21 | Inpatient (IN) | payer MEDICARE, OTHER, SELFPAY ==
[2021-08-02 13:05] VITALS: BMI 28.5
[2022-05-04 08:09] VITALS: BMI 27.8
[2022-05-04 09:19] VITALS: BMI 27.8
[2022-05-11] VITALS (19 sets, daily range): BP systolic 80–115; BP diastolic 50–79; PULSE 54–68; RESP 11–94; TEMP 36.1–36.9; O2SAT 10–99; BMI 27.8
[2022-05-11] MEDS: ACETAMINOPHEN 325 MG TABLET 975 MG PO (07:13)
[2022-05-11] MEDS: PREGABALIN 75 MG CAPSULE PO (07:14)
[2022-05-11] MEDS: LACTATED RINGERS 1,000 ML 42 ML IV ×2 (07:15→10:55)
--- NOTE | 2022-05-11 07:46 | PM.PREOP ---
Pre-operative Note COVID-19 COVID-19 status: Negative Result date/Date tested (Pos, Neg/Pending): 05/10/22 Criteria for continued procedure: Expected advancement of disease process, Possibility delay results in more complex future surgery or treatment, Increased loss of function, Continuing or worsening of significant or severe pain, Deterioration of the patient's condition or overall health and Delay expected to result in less-positive ultimate med/surg outcome Interval Note History & Physical reviewed/Exam performed by Physician: Yes Changes to H&P: No
[2022-05-11] MEDS: CEFAZOLIN 2 GM/100 ML PREMIX 100 ML IV ×2 (07:53→16:04)
--- NOTE | 2022-05-11 08:23 | SUR.OPER ---
Prone on spine table, head in foam head support, padded chest and pelvic supports, gel pad at knees, lower legs supported by pillows; nipples, genitalia and toes free of pressure, arms secured on foam padded arm boards at <90 degrees abduction. Tape over blanket at thigh secured to table.
[2022-05-11] MEDS: BUPIVACAINE 0.25% (PF) 30 ML, EPINEPHrine 0.3 MG INJ (08:39)
[2022-05-11] MEDS: BUPIVACAINE LIPOSOME 266 MG/20 ML VIAL INJ (08:40)
--- NOTE | 2022-05-11 11:49 | DI.RAD.S_ITS ---
PROCEDURE: XR LUMBAR SPINE 2-3V INDICATIONS: L4-5 L5-S1 TLIF TECHNIQUE: AP and lateral cm operative views of the lumbar spine were acquired. COMPARISON: [facility], , XR LUMBAR SPINE MIN 4V, 11/04/2021, 7:48. FINDINGS: C-arm images demonstrate posterior lateral jaquelin and pedicle screw fixation at L4 through S1 and placement of interbody disc spacers. There is no radiographic evidence of complications. IMPRESSION: Operative imaging utilized during lumbar fusion surgery. Dictated by: Alvino Hagen M.D. on 05/11/2022 at 12:03 Approved by: Alvino Hagen M.D. on 05/11/2022 at 12:05
--- NOTE | 2022-05-11 12:10 | P.OP_ITS ---
Operative Date/Time/Diagnoses Date of procedure: 05/11/22 Time of procedure: 07:40 Pre-op diagnosis: 1. L4-5, L5-S1 post laminectomy syndrome 2. L4-5, L5-S1 spondylosis with radiculopathy Post-op diagnosis: same Procedure & Clinicians Procedure: 1. L4-5, L5-S1 Postero-lateral and posterior interbody fusion 2. L4-5, L5-S1 interbody cage placement. 3. L4-5, L5-S1 decompressive laminectomy with bilateral facetecomies 4. L4-5, L5-S1 Posterior segmental instrumentation 5. [place] of bone marrow from iliac crest 6. Utilization of microsurgical technique and operating microscope 7. Utilization of robotic assisted navigation Same procedure as scheduled: Yes Indications: Patient has been having chronic back pain and worsening lumbar radiculopathy. Patient failed multiple conservative management with worsening pain weakness and numbness in her lower extremity. Patient has been having difficulty performing activity of daily living. After discussing risks benefits of treatment options, patient elected proceed with surgery. Surgeon: Tio Lester Railway Shunter: Kristin Becerril Click Yes if Unassisted: No Anesthesia Type: General Operative Notes Closure Type: primary Specimen(s): none sent Prosthetic devices, grafts, tissues, transplants, or devices: Globus CREO MIS screws, Rise cages Applied: catheter Estimated Blood Loss (mL): 100 Blood products transfused: none Procedure in detail: Patient was seen in the preoperative area. Risks and benefits of the surgery was discussed with the patient. Informed consent was obtained from the patient and placed in the chart. Surgical site was marked. Patient was taken to the operative room. General anesthesia was administered. Prophylactic antibiotic was given to the patient less than 30 min before the incision was made. Patient was placed into a prone position on the Madi table. Patient's back was then prepped and draped in the sterile fashion. Time-out was performed at this time. After patient was prepped and draped, patient's PSIS was palpated and marked bilaterally. Small 1 cm incision was made over the PSIS for placement of the reference probes. Two trocar was placed into the PSIS 1 on each side. The reference probe was attached to the trocar of the reference apparatus. At this time the C-arm imaging was used to confirm AP and lateral of L4-L5, L5- S1 vertebrae and merged the C-arm imaging using the [employer] robotic navigation system with the CT of the lumbar spine. After successful merging was completed and confirmed, skin marker was used to jonny out the skin incision using the [employer] robotic arm. Bilateral incision was made at this time. Pre templated trajectory was used and guided using the [employer] robotic navigation system for bilateral L4, L5, S1 pedicle screw placement. This was done by using the robotic arm to guide the high-speed bur to make a cortical entry point. Next a drill was placed also using the robotic arm and guided using the navigation system drilling partially through bilateral L4, L5 and S1 pedicles. Next L4, L5, S1 pedicle screws it was pre templated and measured was placed onto the power tier truck driver and inserted into the pedicles bilaterally. After all 6 screws were placed C-arm imaging was taken of both AP and lateral to confirm the placement. Excellent placement of the screws were confirmed and a matched precisely with the pre planned screw placement using the navigation system. MARs retractor was inserted using Pixspan guidence. Globus MARS retractors was placed inside the incision and docked onto the L4 and L5 lamina. Using microsurgical technique and operating microscope, a L4, L5 laminectomy and L4-5, L5-S1 facetectomy was performed using a Kerrison rongeur. Patient was found have severe lateral recess and neural foramen stenosis which was fully decompressed after the laminectomy facetectomy. More than 75% of the facets were removed during the process of decompression rendering L4-5, L5-S1 level grossly unstable and required a fusion procedure at the same time. There was significant amount of epidural scarring from the previous laminectomy at both levels. Scar tissue was debrided during the course of laminectomy and facetectomy. The disc space at L4-5, L5-S1 was identified, and a total diskectomy was performed at L4-5, L5-S1 level. The endplates were decorticated using a rasp and shaver. The total diskectomy and decortication was performed at L4-5, L5-S1 level in order to to accomplish a L4-5, L5-S1 fusion. The local bone from the laminectomy and facetectomy was saved for local bone grafting. After the total diskectomy and decortication was completed, Trifecta bone graft material was combined with local bone that was harvested earlier. There was a pin hole size dural defect that was identified at the L4-5 level. This was pa tched with duragen and Tissel. No CSF leakage was identified. At this time, a separate skin is incision was made over the iliac crest. A Jamshidi needle was inserted into the iliac crest through a separate skin incision. 5 cc of bone marrow aspiration was obtained through the separate skin incision using a Jamshidi needle from the iliac crest. The bone marrow aspiration was combined with local bone and the Trifecta bone grafting material. The bone grafting material was placed into the L4-5, L5-S1 interbody space along with a expandable cage. The cage was expanded to its maximum height using the torque limiting screwdriver. The disc preparation as well as the cage insertion were also performed under navigation guidance. After the cage was placed, AP and lateral C-arm imaging was taken to confirm placement of the cage and excellent position was confirmed. Globus MARS retractor was inserted and docked onto the L4-5, L5-S1 posterolateral gutter on the right side. Using the power drill, posterior- lateral decortication was performed at L4-5, L5-S1 level until bleeding cortical bone was identified. The remaining bone grafting material was placed into the L4-5, L5-S1 posterior lateral gutter he order to accomplish posterolateral fusion at the L4-5, L5-S1 level. At this time the tulips were attached to the L4, L5, S1 pedicle screw shanks. After measuring the length of the rods, they were inserted into the tulips of the pedicle screws and locked in place using locking caps and torque limiting screwdriver bilaterally. Total 6 caps and 2 titanium rods was used in order to complete the posterior instrumentation construct. After all the hardware was placed, and confirmed with AP and lateral C-arm imaging, the wound was then irrigated with sterile normal saline and packed with Ray-Craig gauze for 3 min to accomplish hemostasis. After the gauze was removed the deep fascia was closed with #1 Vicryl suture. The subcutaneous layer was closed with 2-0 Vicryl. The skin was closed with skin joao. Patient tolerated the procedure well. There were no complications. Neuro monitoring system was used to monitor patient's neurologic status throughout entire procedure. There was no disturbance of the neural monitoring signals throughout the case. Complications: none Post-operative Condition: stable Disposition: PACU Plan for aftercare: Admit to inpatient hospital
[2022-05-11] MEDS: HYDROMORPHONE 2 MG INJ IV (13:00)
[2022-05-11] MEDS: OXYCODONE IR 5 MG TABLET PO ×2 (13:00→13:23)
[2022-05-11] MEDS: ONDANSETRON 4 MG/2 ML INJ IV (13:01)
--- NOTE | 2022-05-11 13:08 | SUR.PHASEI ---
Patient arousable to verbal stimuli when prompted by nurse; vss; able to move all extremities and follow simple commands; AAO x 3; taking sips of water without difficulty. Denies numbness or tingling; denies any shooting pain down either leg.
[2022-05-11] MEDS: SODIUM CHLORIDE 0.9% 1,000 ML 100 ML IV ×2 (14:21→23:26)
[2022-05-11] MEDS: OXYCODONE IR 5 MG TABLET 10 MG PO ×2 (16:04→23:26)
--- NOTE | 2022-05-11 16:36 | PC.NURSE ---
Pt resting in bed-family at the bedside. IVF infusing as ordered. SCD's on and running. Encouraged ankle waves and deep breathing exercises. Oriented Pt to room, call light, bed controls, and tv controls. Pt bed alarm on for safety.
[2022-05-11] MEDS: ACETAMINOPHEN 325 MG TABLET 650 MG PO (20:37)
[2022-05-11] MEDS: SENNOSIDES 8.6 MG TABLET 17.2 MG PO (20:37)
[2022-05-11] MEDS: DOCUSATE 100 MG CAPSULE PO (20:38)
[2022-05-12] VITALS: BP 92/54; PULSE 66; RESP 18; TEMP 37.1; O2SAT 93
[2022-05-12] MEDS: CEFAZOLIN 2 GM/100 ML PREMIX 100 ML IV (01:55)
[2022-05-12 04:00] VITALS: BP 92/52; PULSE 65; RESP 18; TEMP 36.8; O2SAT 94
[2022-05-12 04:49] LABS: Hematocrit 28.8 % (41-53); Hemoglobin 9.9 g/dL (13.5-17.5)
[2022-05-12] MEDS: ACETAMINOPHEN 325 MG TABLET 650 MG PO (05:41)
[2022-05-12 08:00] VITALS: BP 89/60; PULSE 74; RESP 16; TEMP 36.5; O2SAT 93
--- NOTE | 2022-05-12 09:12 | PM.DS.1 ---
History of Present Illness History of Present Illness Date Patient Seen: 05/12/22 Time Patient Seen: 09:12 Chief complaint: TLIF Narrative: Patient is complaining of moderate low back pain this morning. He notes he has continued right thigh numbness and right foot numbness, right big toe numbness has improved since surgery. He also notes a longstanding weakness in his right thigh. His son and are at bedside. Overall he is feeling good and is considering being discharged home today. Discharge Providers Provider Date of admission: 05/11/22 06:21 Discharge Date: 05/12/22 Primary care physician: Liu Grullon DO Consults: 05/11/22 13:57 Consult to Occupational Therapy Evaluate & Treat Comment: Physician Instructions: Evaluate and treat Consult to Physical Therapy Evaluate & Treat Comment: Physician Instructions: Evaluate and Treat Discharge provider: Kristin Becerril PA-C Summary Hospital Course Discharge Diagnosis: 1. L4-5, L5-S1 post laminectomy syndrome 2. L4-5, L5-S1 spondylosis with radiculopathy Hospital Course: Operative Date/Time/Diagnoses Date of procedure: 05/11/22 Time of procedure: 07:40 Procedure & Clinicians Procedure: 1. L4-5, L5-S1 Postero-lateral and posterior interbody fusion 2. L4-5, L5-S1 interbody cage placement. 3. L4-5, L5-S1 decompressive laminectomy with bilateral facetecomies 4. L4-5, L5-S1 Posterior segmental instrumentation 5. [place] of bone marrow from iliac crest 6. Utilization of microsurgical technique and operating microscope 7. Utilization of robotic assisted navigation Same procedure as scheduled: Yes Indications: Patient has been having chronic back pain and worsening lumbar radiculopathy. Patient failed multiple conservative management with worsening pain weakness and numbness in her lower extremity.? Patient has been having difficulty performing activity of daily living.? After discussing risks benefits of treatment options, patient elected proceed with surgery. Surgeon: Tio eLster Automobile Body Customizer: Kristin Becerril Click Yes if Unassisted: No Anesthesia Type: General Operative Notes Closure Type: primary Specimen(s): none sent Prosthetic devices, grafts, tissues, transplants, or devices: Globus CREO MIS screws, Rise cages Applied: catheter Estimated Blood Loss (mL): 100 Blood products transfused: none Status at Discharge Cognitive/behavioral status at discharge: at baseline, oriented Functional status at discharge: uses cane/walker Overall status at discharge: patient is progressing back to baseline Exam Vital Signs (past 8 hours): - 05/12/22 04:00 Temperature 98.2 F Pulse Rate 65 Respiratory Rate 18 Blood Pressure 92/52 L Pulse Oximetry 94 Oxygen Flow Rate 0 Oxygen Delivery Method Nasal Cannula Oxygen Flow Rate 0 Narrative Exam Narrative: Very pleasant 77-year-old male, resting comfortably in bed, no acute distress. Lumbar incisions demonstrates scant dried bloody drainage on his right lateral incision, no surrounding erythema, induration, or varun pus. Bilateral lower extremity: Hip flexion is 4/5 on the right as compared to 5/5 on the left, otherwise motor functions are grossly intact, sensation is slightly diminished on the right as compared to the left with light touch, calves are soft and nontender palpation. Objective Labs Result Diagrams: 05/12/22 04:13 Labs: Laboratory Results - last 24 hr 05/12/22 04:13 Hgb 9.9 L Hct 28.8 L PFSH Medical History Adhesive arachnoiditis Back pain Back pain with history of spinal surgery Enlarged prostate Hypothyroidism Lumbar post-laminectomy syndrome Lumbar radiculopathy Pernicious anemia Pernicious anemia Spastic gait Thoracic radiculopathy Thoracic radiculopathy Surgical History H/O left knee surgery History of hernia repair History of incision and drainage (~10/2020) History of lumbar surgery Hx of bilateral cataract extraction Hx of tonsillectomy Hx of transurethral resection of prostate Hx of vasectomy Family History Father Heart disease Mother Old age Brother Arrhythmia Social History household members: spouse Smoking Status: Former smoker Tobacco: How many years used: 3 alcohol intake: current substance use type: does not use Discharge Assessment & Plan Assessment and Plan Assessment: -stable status post L4-5, L5-S1 TLIF -hypotension, asymptomatic Plan of Treatment: -mobilize with PT/OT. Weightbearing as tolerated with front wheel walker or cane. No bending, lifting, twisting x6 weeks -continue multimodal pain management -continue to monitor blood pressure. Slow transitioning and tingling of the legs with sitting to standing. -DC urinary catheter today -disposition: Home today or tomorrow, depending on physical therapy, hypotension, pain management Discharge Plan Discharge Plan Patient Disposition: Home Discharge orders & Medications Prescriptions: New acetaminophen 500 mg capsule 500 mg PO Q4H MDD Max 3000 mg per day PRN (Reason: Pain, Mild (1-3)) Qty: 90 0RF docusate sodium 100 mg Capsule 100 mg PO BID PRN (Reason: constipation) Qty: 20 0RF oxycodone 5 mg Tablet See Rx Instructions .ROUTE .COMPLEX PRN (Reason: Pain, Severe (7-10)) Qty: 42 0RF Rx Instructions: Take 1-2 tablets every 3-4 hours as needed for moderate to severe postoperative pain Continued levothyroxine 112 mcg tablet 112 mcg PO DAILY Discontinued Ibuprofen PM 200-25 mg Capsule 2 cap PO BEDTIME PRN (Reason: Pain) No Action (DME) disabled parking permit See Rx Instructions .ROUTE .MEDSUPPLY Qty: 1 0RF Rx Instructions: As directed. patient qualifies for disabled parking as per attached form. Follow up/Referrals: Tio Lester MD [Physician] - As previously scheduled (Follow up with Dr Lester on 05/26/2022 @ 1:20 pm at [facility] in [place].) Liu Grullon DO [Primary Care Provider] - Diet/Activity/Treatments Other treatments: Medications: -OTC Tylenol 500 mg 1 tablet every 4 hours as needed for pain/fever. Max 6 tablets per day. -Oxycodone 5 mg take 1-2 tablets every 4 hours as needed for moderate-severe pain (narcotic pain medication). -As needed medications: -Ducolax and /or MiraLax as needed for constipation from narcotic pain medications. -Pepcid AC as needed for stomach upset. Dressing/Wound care: -Keep dressing in place until postoperative follow-up office visit. -Okay to shower. Keep wound out of direct water stream. Can use PressNSeal plastic wrap to protect from shower stream. No soaking or submerging until all the scabs fall off (approximately 6 weeks). -Please call the office if dressing becomes wet, soiled, or saturated. Activities: -Limit bending, lifting, twisting x6 weeks. No deep bending (more than 90 degrees) or twisting at the waist. No lifting > 20 pounds. -Walk frequently. -Weight-bearing as tolerated. Use front wheeled walker, and progress to cane when safe. -Continue with home exercises as directed by your physical therapist. -Ice your incision as needed for pain/inflammation/swelling. Protect your skin with a folded pillowcase. -Incentive Spirometer (breathing device from hospital): 5-10xs every hour while awake for the first 1-2 weeks. Follow-up: -Follow-up with your surgeon or PA in the office in 10-14 days after surgery. -Follow-up with your surgeon 6 weeks postoperatively. Call the office if you have chest pain, shortness of breath, significant swelling that will not resolve with elevating, fever over 101?, significantly worsening pain, or are concerned you might need to go to the Emergency Room. [facility]: [phone] Skin/Wound/Dressing Care Report to your healthcare provider any signs of infection, such as:: chills, fever, night sweats, unusual drainage and unusual redness Visit Report/Discharge Packet Instructions: DI for Prescription Opioid Use, DI for Transforaminal Lumbar Interbody Fusion Stand Alone Forms: Surgery Discharge Discharge Data Primary Care Provider: Liu Grullon
[2022-05-12] MEDS: OXYCODONE IR 5 MG TABLET 10 MG PO ×2 (09:32→13:16)
[2022-05-12] MEDS: DOCUSATE 100 MG CAPSULE PO (09:32)
[2022-05-12] MEDS: LEVOTHYROXINE 112 MCG TABLET PO (09:32)
--- NOTE | 2022-05-12 09:32 | CM.DANOTE ---
Patient is a 77 yo male who was admitted on 05/11/22 for TLIF. Pt has [facility] for [facility] and his PCP is Dr. Liu Grullon. EMR was reviewed. Per Ortho and PA, pt has hx of 2 other back surgeries and this is his 3rd and tolerated procedure well and may be stable for d/c later today pending PT/OT and pain control. SW met bedside with pt, spouse, and adult son who flew in from [facility] to assist with pt at d/c and they confirm that pt and spouse live in [place] and both are very active and independent and pt drives and does not typically use DME for ambulation although he has DME from prior surgeries that he has available to use at d/c. Pt denies any hx of HH or SNF and his DPOAs are his spouse Faby and his adult son. Pt seems to have good pain control and is thankful spouse and son bedside for CG training for precautions and does not anticipate any d/c needs and confirmes he has outpt PT set up in 6 weeks. Plan: SW to follow for PT/OT eval and recommendations to confirm safe d/c home with spouse and son assist and any further identified needs. STEPHEN Riojas Discharge Planning/Care Management Advanced directive, confirm from FAMILY Start: 05/11/22 14:10 Freq: Q24H Status: Active Protocol: Document 05/11/22 14:10 AKP (Rec: 05/11/22 14:11 AKP [id number]) Advance Directive, confirm on record Time 14:10 Person contacted patient does not have one Copy received No Advanced directive available on record No CM Discharge Assessment Start: 05/12/22 09:30 Freq: Status: Active Protocol: Document 05/12/22 09:30 BF (Rec: 05/12/22 09:32 BF [id number]) Discharge Planning Assessment Assigned Labelling Machine Operator STEPHEN Howell DPOA/Assigned Designee Name spouse Faby Contact Information [phone] Advance Directives? Yes Advance Directives on File No History Provided By Patient,Family Member, Significant Other,Medical Record Has Patient been admitted in last 30 No days? Prior Living Arrangements House Household Members spouse Type of transporation used prior to Drives own vehicle admit Independent with ADL's Yes Is patient alert and oriented? Yes Caregiver for Another No Community Services used prior to Physical Therapy admission: DME Already Rented / Owned Elevated Toilet Seat,FWW / Walker Patient/Family Preference OP PT Therapy Comment Has outpt PT set up for 6 weeks from his TLIF surgery Barriers to Discharge No Discharge Plan Home Community Services Physical Therapy Transportation Arrangement Spouse and adult son who is visiting are bedside and can transport Referrals Initiated None needed Additional Comment Pending PT/OT eval and recommendations Whiteboard Updated in Patient Room with Yes name and ext. # of Labelling Machine Operator Review Status In Process Please Provide Date Initial DC 05/12/22 Assessment Was Performed Next Review Type Continued Stay Review Pre-Anesthesia Assessment Start: 05/04/22 08:09 Freq: Status: Active Protocol: Document 05/04/22 08:09 [facility] (Rec: 05/04/22 09:17 [facility] [id number]) Pre-Anesthesia Assessment PAC Comment History of Pancytopenia, leukopenia, recent WBC 2.6, platelets 110 on labs 04/11/22 Preferred Name Abdirahman Patient Information Reviewed Via Phone Assessment Assessment Completed With Patient Diagnostic Results BMP/CMP,CBC,EKG Comment Labs/ECG @ [facility] 04/11/22, COVID screen 05/10/22 Primary Care Provider Liu Grullon Seen Specialist in Last 12 Months Yes Specialist Seen Oncologist,Orthopedist, Urologist,Other Comment Neurology, Pain management Primary Language Indian Preferred Language Indian Grounds Crew Supervisor Required No Height 172.72 cm Weight 83.007 kg Body Mass Index (BMI) 27.8 Hearing Ability Normal Visual Assist Glasses Dentition Type Teeth, Natural Present Barriers to Learning None Hx Anesthesia Reactions No Hx Family Anesthesia Reaction No Hx Malignant Hyperthermia No Hx Blood Transfusions No Hx Blood Transfusion Reaction No Parts Salesman No alcohol intake current alcohol intake frequency a few times a month Smoking Status Former smoker how long ago did patient quit smoking Quit approx 50 years ago Substance Use Type does not use Pain Present Pain Reported Musculoskeletal Symptoms Abnormal Gait,Back Pain, Difficulty Walking,Muscle Spasms,Numbness,Radiating Pain into Limb,Tingling History of Falling (Recent or History of No ) Patient is completely paralyzed or No completely immobile Prosthesis or Orthotic Device Cane Mental Status Oriented to own ability Is patient on oxygen? No Does patient have PATTERSON/SOB No Hx Sleep Apnea No CPAP/BIPAP use not prescribed Currently Taking a Beta Jessa No Can You Climb a Flight of Stairs Without Yes SOB Hx Chest Pain No Hx SOB No Hx Syncope or Dizziness No Anti-Coagulant Therapy No Has a Plaster Mixer No Cardiac Testing No Hx Pacemaker/ICD No Pacemaker Rep Required? No Cardiac Clearance Received Not Applicable Diet Type At Home Regular Dysphagia No Gastrointestinal Symptoms Constipation Chronic UTI No Urinary Catheter Present No Hx Urinary Self Catheterization No Diabetes No Hx Drug Resistant Organism No Presence of External or Internal Medical No: Partial left knee Devices prosthesis, bilateral eye IOLs Have you had any close contact with No someone diagnosed with COVID-19? Received a COVID vaccine? Yes Received all doses? Yes Marital Status Lives With spouse,family Current Living Arrangements House Number of Floors (Floors) One Floor Support System Child/Children,Spouse Does the Patient Have Assistance After Yes: Son will also be in the Surgery home to assist with care at [place] Patient Discharge Plan Description Return Home Comment Pt advised 2 night length of stay per surgeon Feels Safe in Current Environment Yes Been Physically Hurt or Threatened By a No Person in Current Environment Do you have thoughts of harming yourself None or others? Are you currently considering suicide? No Do you have a plan to hurt yourself or No Plan others? Do You Have Any Spiritual Beliefs That No May Affect Your HC Choices? Do You Have Any Cultural Practices That No May Affect Your HC Choices? Who Can We Speak to About Patient's Care Family, friends Identifying Code for Release of Patient Declines to issue Information Health Care Proxy/Next of Kin Ella Shetty () Health Care Proxy Emergency Contact Name Ella Shetty () Emergency Contact Advance Directives? No Advance Directives on File No Power of Coder No PAC Instructions Durable medical equipment, Medications to take/avoid, Nasal antibiotic,No ETOH/ petroleum product on skin DOS, NPO,Post-op transportation,Pre -surgical wash,Sensory aids, Sturdy shoes/comfortable clothes,Do not bring valuables and remove jewelry Document 05/04/22 09:19 [facility] (Rec: 05/04/22 09:19 [facility] [id number]) Pre-Anesthesia Assessment PAC Comment History of Pancytopenia, leukopenia, recent WBC 2.6, platelets 110 on labs 04/11/22 Preferred Name Abdirahman Patient Information Reviewed Via Phone Assessment Assessment Completed With Patient Diagnostic Results BMP/CMP,CBC,EKG Comment Labs/ECG @ [facility] 04/11/22, COVID screen 05/10/22 Primary Care Provider Liu Grullon Seen Specialist in Last 12 Months Yes Specialist Seen Oncologist,Orthopedist, Urologist,Other Comment Neurology, Pain management Primary Language Indian Preferred Language Indian Grounds Crew Supervisor Required No Height 172.72 cm Weight 83.007 kg Body Mass Index (BMI) 27.8 Hearing Ability Normal Visual Assist Glasses Dentition Type Teeth, Natural Present Barriers to Learning None Hx Anesthesia Reactions No Hx Family Anesthesia Reaction No Hx Malignant Hyperthermia No Hx Blood Transfusions No Hx Blood Transfusion Reaction No Parts Salesman No alcohol intake current alcohol intake frequency a few times a month Smoking Status Former smoker how long ago did patient quit smoking Quit approx 50 years ago Substance Use Type does not use Pain Present Pain Reported Musculoskeletal Symptoms Abnormal Gait,Back Pain, Difficulty Walking,Muscle Spasms,Numbness,Radiating Pain into Limb,Tingling History of Falling (Recent or History of No ) Patient is completely paralyzed or No completely immobile Prosthesis or Orthotic Device Cane Mental Status Oriented to own ability Is patient on oxygen? No Does patient have PATTERSON/SOB No Hx Sleep Apnea No CPAP/BIPAP use not prescribed Currently Taking a Beta Jessa No Can You Climb a Flight of Stairs Without Yes SOB Hx Chest Pain No Hx SOB No Hx Syncope or Dizziness No Anti-Coagulant Therapy No Has a Plaster Mixer No Cardiac Testing No Hx Pacemaker/ICD No Pacemaker Rep Required? No Cardiac Clearance Received Not Applicable Diet Type At Home Regular Dysphagia No Gastrointestinal Symptoms Constipation Chronic UTI No Urinary Catheter Present No Hx Urinary Self Catheterization No Diabetes No HgbA1C 5.7 Date 04/11/22 Hx Drug Resistant Organism No Presence of External or Internal Medical No: Partial left knee Devices prosthesis, bilateral eye IOLs Have you had any close contact with No someone diagnosed with COVID-19? Received a COVID vaccine? Yes Received all doses? Yes Marital Status Lives With spouse,family Current Living Arrangements House Number of Floors (Floors) One Floor Support System Child/Children,Spouse Does the Patient Have Assistance After Yes: Son will also be in the Surgery home to assist with care [place] Patient Discharge Plan Description Return Home Comment Pt advised 2 night length of stay per surgeon Feels Safe in Current Environment Yes Been Physically Hurt or Threatened By a No Person in Current Environment Do you have thoughts of harming yourself None or others? Are you currently considering suicide? No Do you have a plan to hurt yourself or No Plan others? Do You Have Any Spiritual Beliefs That No May Affect Your HC Choices? Do You Have Any Cultural Practices That No May Affect Your HC Choices? Who Can We Speak to About Patient's Care Family, friends Identifying Code for Release of Patient Declines to issue Information Health Care Proxy/Next of Kin Ella Shetty () Health Care Proxy Emergency Contact Name Ella Shetty () Emergency Contact Advance Directives? No Advance Directives on File No Power of Coder No PAC Instructions Durable medical equipment, Medications to take/avoid, Nasal antibiotic,No ETOH/ petroleum product on skin DOS, NPO,Post-op transportation,Pre -surgical wash,Sensory aids, Sturdy shoes/comfortable clothes,Do not bring valuables and remove jewelry
--- NOTE | 2022-05-12 10:00 | PT.IIE ---
Current Diagnoses Spondylolisthesis, lumbar region (05/11/22) Spinal stenosis, lumbar region with neurogenic claudication (05/11/22) Surgery Performed Operation Date: 05/11/22 07:45 Actual Procedures p L4-5, L5-S1 TLIF w. posterior instrumentation -Robot(Not Applicable) - Tio Lester MD Surgical History (Last Reviewed 05/12/22 @ 09:15 by Kristin Becerril PA-C) H/O left knee surgery History of hernia repair History of incision and drainage (~10/2020) History of lumbar surgery Hx of bilateral cataract extraction Hx of tonsillectomy Hx of transurethral resection of prostate Hx of vasectomy Medical History (Last Reviewed 05/12/22 @ 09:15 by Kristin Becerril PA-C) Adhesive arachnoiditis Back pain Back pain with history of spinal surgery Enlarged prostate Hypothyroidism Lumbar post-laminectomy syndrome Lumbar radiculopathy Pernicious anemia Pernicious anemia Spastic gait Thoracic radiculopathy Thoracic radiculopathy Physical Therapy Inpatient Evaluation/Re-Eval M1 PT/OT-IP Prior Functional Status Start: 05/12/22 12:31 Freq: NEEDED Status: Active Protocol: Document 05/12/22 10:00 AB (Rec: 05/12/22 12:52 AB [id number]) Medical Review Prior Functional Status Medical History Reviewed Yes Communication able to make needs known Mobility and Gait pt stated that he is modified independent with all mobilities and ambulation using a SPC. pt stated that RLE is weaker and occasionally uses a AFO due to ankle weakness Social History Household Members spouse Living Arrangements House Number of Floors (Floors) One Floor Number of Stairs To Enter/Railing? no steps to enter Home Environment Standard Height Toilet,Walk in Shower Home Equipment Front Wheel Walker,Four Wheel Walker,Raised Toilet Seat w/ Armrests Additional Social History Comment spouse will assist pt and pt's son also staying with pt to assist M2 PT-IP Current Condition Start: 05/12/22 12:31 Freq: NEEDED Status: Active Protocol: Document 05/12/22 10:00 AB (Rec: 05/12/22 12:52 AB [id number]) Physical Therapy Current Condition Current Condition Evaluation Date 05/12/22 Treatment Diagnosis s/p L4-5, L5S1 TLIF; difficulty in walking Onset Date 05/11/22 M3 PT-IP Subjective Start: 05/12/22 12:31 Freq: NEEDED Status: Active Protocol: Document 05/12/22 10:00 AB (Rec: 05/12/22 12:52 AB [id number]) Subjective Physical Therapy Visit Type Type Initial Evaluation Visit Start Time 10:00 Visit Stop Time 10:35 Total Visit Minutes 35 Number of SUPERVISOR PRE WAVE Visits 0 Physical Therapy Visit Comments Patient Comments agreeable to do PT Therapy Pain Assessment Pain When Pain Assessed At Rest Pain Present Pain Present Pain Reported Location back Intensity 4 Scale Used Numeric (0 - 10) Pain Management Techniques Distraction,Modification of Treatment,Re-positioning, Timing of Activity with Medications M4 PT-IP Mobility and Gait Start: 05/12/22 12:31 Freq: NEEDED Status: Active Protocol: Document 05/12/22 10:00 AB (Rec: 05/12/22 12:52 [id number]) PT-Bed Mobility Assessment Rolling Type of Rolling Log Rolling Level of Assist Standby Assistance Supine to Sit Supine to Sit Standby Assistance PT-Transfer Assessment Sit to and From Stand Sit to and from Stand Moderate Assistance,Maximum Assistance,1 Person Assistance ,Use of Upper Extremities Equipment Transfer Assistive Device Gait Belt,Front Wheeled Walker Orthotic/Prosthetic Devices or Brace: No Transfers Transfer Destination Chair Transfer Technique ambulated Transfer Ability Level of Assist Moderate Assistance,Maximum Assistance,1 Person Assistance ,Use of Upper Extremities Comments Mobility Comments reviewed back precautions and log roll bed mobility techniques with pt and son. BP: 103/57. completed log roll supine to sit SBA and cues for techniques and safety . pt able to sit on EOB SBA. BP: 117/68. completed sit to stand max A and cues. instructed to sit back down. educated on sit to stand techniques. able to complete with 1 hand pushing from EOB and other hand on FWW requiring mod to max A and max cues. pt ambulated in room using FWW mod to max A ~ 20 ft with cues. requires assist to stabilize RLE. pt sat back on the chair. Set up caregiver training with pt and son at 1pm today. left pt with OT and son. Gait Assessment Gait Gait Assistance Required: Moderate Assistance,1 Person Assist Distance (Feet) 20 Able to Maintain Weight Bearing Status Yes During Gait Assistive Devices Assistive Device Gait Belt,Front Wheeled Walker Orthotic/Prosthetic Devices or Brace: No Gait Deviations General Gait Pattern Decreased Stride Length, Decreased Feet Clearance Factors Limiting Gait Function Factors Limiting Gait Function Decreased Activity Tolerance, Decreased Sensation,Decreased Strength,Limited Range of Motion,Pain,Poor Balance,Poor Safety Awareness PT-Balance Assessment Sitting Balance and Reactions Static Sitting Balance Ability Good Dynamic Sitting Balance Ability Fair Standing Balance and Reactions Static Standing Balance Ability Poor Dynamic Standing Balance Ability Poor Device Used FWW M5 PT-IP Objective Assessments Start: 05/12/22 12:31 Freq: NEEDED Status: Active Protocol: Document 05/12/22 10:00 AB (Rec: 05/12/22 12:52 AB [id number]) Orientation Orientation/Cognition Level of Alertness Alert Orientation Name,Place,Situation Language Function Ability No Deficits Noted Safety Awareness Decreased Safety Awareness Memory Description Short Term Impaired Gross Range of Motion Lower Extremity ROM Assessment Within Functional Limits Strength Lower Extremity Strength Assessment Bilaterally Impaired Comments Strength Comments LLE: 4-/5 RLE: 3+/5 Sensation Assessment Sensation Gross Sensation Right LE Impaired,Left LE Impaired Sensation Description Numbness Comments Sensation Comments numbness RLE>LLE Muscle Tone Muscle Tone WNL Yes M6 PT-IP Treatment Start: 05/12/22 12:31 Freq: NEEDED Status: Active Protocol: Document 05/12/22 10:00 AB (Rec: 05/12/22 12:52 AB [id number]) Physical Therapy Treatment Education Education Provided Precautions,Weight Bearing Status,Post-Op Packet,Safety M7 PT-IP Assessment and Plan Start: 05/12/22 12:31 Freq: NEEDED Status: Active Protocol: Document 05/12/22 10:00 AB (Rec: 05/12/22 12:52 [email or web address] Summary Assessment and Plan Potential Rehabilitation Potential Fair Status of Condition at Evaluation Evolving Summary Impairments Pain,ROM,Strength,Balance, Coordination,Sensation,Tone, Cognition,Bed Mobility, Transfers,Gait,Activity Tolerance Assessment Summary pt requiring mod to max A and max cues with transfers and ambulation using FWW. Caregiver training set up this afternoon at 1pm. will continue to assess progress. Goals Bed Mobility Goal Independent Transfer Goal Standby Assistance,Front Wheeled Walker Gait Goal Standby Assistance,Front Wheel Walker Gait Distance 150 Days to Meet Goals 5 Frequency of Treatment Frequency Of Treatment Twice a Day Treatment Plan Physical Therapy Treatment Plan Bed Mobility Training,Transfer Training,Gait Training, Therapeutic Exercise,Balance Retraining,Post Op Education, Discharge Planning,Hot or Cold Pack,Neuromuscular Re-ed, Coordination Retraining,Manual Therapy Precautions Lumbar Precautions Log Roll,No Twisting,Limit Bending,Lifting Restriction of 10 lbs,Gait Belt above Incisional Area Recommendations To Nursing Amount of Assist Needed 1 Person Assist Discharge Recommendations PT Discharge Recommendations Home with 05/12 Assist Available,Home Health Transportation Needs at Discharge Private Vehicle,Wheelchair/ Cabulance
--- NOTE | 2022-05-12 10:20 | OT.IP.EVAL ---
Current Diagnoses Spondylolisthesis, lumbar region (05/11/22) Spinal stenosis, lumbar region with neurogenic claudication (05/11/22) Surgery Performed Operation Date: 05/11/22 07:45 Actual Procedures p L4-5, L5-S1 TLIF w. posterior instrumentation -Robot(Not Applicable) - Tio Lester MD Past Medical History (Last Reviewed 05/12/22 @ 09:15 by Kristin Becerril PA-C) Adhesive arachnoiditis Back pain Back pain with history of spinal surgery Enlarged prostate Hypothyroidism Lumbar post-laminectomy syndrome Lumbar radiculopathy Pernicious anemia Pernicious anemia Spastic gait Thoracic radiculopathy Thoracic radiculopathy Surgical History (Last Reviewed 05/12/22 @ 09:15 by Kristin Becerril PA-C) H/O left knee surgery History of hernia repair History of incision and drainage (~10/2020) History of lumbar surgery Hx of bilateral cataract extraction Hx of tonsillectomy Hx of transurethral resection of prostate Hx of vasectomy Occupational Therapy Inpatient Evaluation/Re-Eval M1 PT/OT-IP Prior Functional Status Start: 05/12/22 12:31 Freq: NEEDED Status: Active Protocol: Document 05/12/22 10:20 [facility] (Rec: 05/12/22 13:19 [facility] [id number]) Medical Review Prior Functional Status Medical History Reviewed Yes Communication able to make needs known Mobility and Gait pt stated that he is modified independent with all mobilities and ambulation using a SPC. pt stated that RLE is weaker and occasionally uses a AFO due to ankle weakness Activities of Daily Living and IADL's Pt states able to do his ADL's prior Social History Household Members spouse Living Arrangements House Number of Floors (Floors) One Floor Number of Stairs To Enter/Railing? no steps to enter Home Environment Standard Height Toilet,Walk in Shower Home Equipment Front Wheel Walker,Four Wheel Walker,Raised Toilet Seat w/ Armrests Additional Social History Comment spouse will assist pt and pt's son also staying with pt to assist M2 OT-IP Current Condition Start: 05/12/22 13:03 Freq: Status: Active Protocol: Document 05/12/22 10:20 [facility] (Rec: 05/12/22 13:19 [facility] [id number]) Occupational Therapy Current Condition Current Condition Evaluation Date 05/12/22 Treatment Diagnosis S/p L4-5, L5-S1 TLIF Post Operative Precautions Lumbar Precautions Log Roll,No Twisting,Limit Bending,Lifting Restriction of 10 lbs,Gait Belt above Incisional Area M3 OT- IP Subjective and Pain Start: 05/12/22 13:03 Freq: Status: Active Protocol: Document 05/12/22 10:20 [facility] (Rec: 05/12/22 13:19 [facility] [id number]) OT- Subjective Occupational Therapy Visit Type Type Initial Evaluation Visit Start Time 10:20 Visit Stop Time 10:47 Total Visit Minutes 27 Occupational Therapy Visit Comments Patient Comments Pt's son in the room during OT eval. Patient/Caregiver Goals TO go home. OT Pain Assessment Pain When Pain Assessed During Mobility Pain Present Pain Present Pain Reported M4 OT- IP ADL's Start: 05/12/22 13:03 Freq: Status: Active Protocol: Document 05/12/22 10:20 [facility] (Rec: 05/12/22 13:19 [facility] [id number]) OT [id number] Comments OT Self-Feeding Comments Not at meal time. OT ADL-Grooming General Evaluation Grooming Ability Independent Comments OT Grooming Comments While seated OT ADL-Oral Care General Eval Oral Care Ability Independent Comments Oral Care Comments While seated, educated if standing to do oral care needs best to spit into a cup or hinge at his hips to best follow his back precautions. OT ADL-Dressing General Eval Lower Body Dressing Ability Maximum Assistance Areas Needing Assistance Socks Comments OT Dressing Comments Pt states to have his son turkey picker a sock aid. OT ADL-Toileting Comments OT Toileting Comments Pt states has a toilet paper aid to assist at home. Pt not able to have a bowel movement on the BSC, but did urinate. OT ADL-Bathing Comments OT Bathing Comments Not performed. M5 OT- IP IADL's Start: 05/12/22 13:03 Freq: Status: Active Protocol: Document 05/12/22 10:20 [facility] (Rec: 05/12/22 13:19 [facility] [id number]) OT-Instrumental Activities of Daily Living Home Safety Awareness Awareness of Need for Assistance at Home Good Awareness Home Safety Comments Pt's son to be staying to assist for all pt's needs. M6 OT- IP Functional Cognition Start: 05/12/22 13:03 Freq: Status: Active Protocol: Document 05/12/22 10:20 [facility] (Rec: 05/12/22 13:19 [facility] [id number]) Cognitive Factors Limiting Selfcare Function Cognitive Ability Level of Alertness Alert Patient Orientation Name,Place,Situation Attention Span Ability Capable of Focused Attention, Capable of Sustained Attention Ability to Follow Commands Able to Follow One Step Commands Safety Awareness Decreased Ability to Apply Precautions Cognitive Comments Cognitive Assessment Comments Pt needing reminders to incorporate back precautions during ADl and mobility needs. In addition vc for safety awareness for hand placement to push up from the bed / recliner to stand. In addition vc to not stop in the middle of transition from coming from sit to stand. M7 OT- IP Mobility and Balance Start: 05/12/22 13:03 Freq: Status: Active Protocol: Document 05/12/22 10:20 [facility] (Rec: 05/12/22 13:19 [facility] [id number]) OT- Bed Mobility Assessment Sit to Supine Sit to Supine Assist Minimal Assistance OT-Transfer Assessment Sit to and From Stand Sit to and from Stand Moderate Assistance Transfers Transfer Ability Minimal Assistance,Moderate Assistance Technique Transfer Destination Bed,Chair Transfer Technique Stand Step Pivot Devices Transfer Assistive Devices Gait Belt,Front Wheeled Walker Comments Mobility Comments MODA to stand to FWW. MIN/MODA with FWW assist to steady the pt , for balance and help guide the FWW. OT- Balance Assessment Sitting Balance and Reactions Static Sitting Balance Ability Good Dynamic Sitting Balance Ability Fair Standing Balance and Reactions Static Standing Balance Ability Poor Dynamic Standing Balance Ability Poor M9 OT- IP Assessment and Plan Start: 05/12/22 13:03 Freq: Status: Active Protocol: Document 05/12/22 10:20 [facility] (Rec: 05/12/22 13:19 [facility] [id number]) OT Summary Assessment and Plan Potential Rehabilitation Potential Good Analytic Complexity at Evaluation Low Summary OT Impairments Pain,Strength,Balance, Functional Mobility,Dressing, Toileting,Bathing,Toilet Transfers,Shower Transfers, Activity Tolerance Progress Towards Goals Slow Progress due to Pain,Slow Progress due to Medical Issues,Slow Progress due to Activity Tolerance Assessment Summary Pt low complexity and main barriers are pain , having difficulty with transitions to stand, and now needing one person assist for ADl and mobility needs. Pt has a supportive son to assist and to do caregiver training with PT at 1pm. Able to go over OT equipment needs of shower chair, HHSP, and sock aid for the pt. Pt to go home when medically stable. Goals Grooming Goal Independent Dressing Goal Independent Toileting Goal Independent Bathing Goal Minimal Assistance Toilet Transfer Goal Independent Shower Transfer Goal Independent Patient/Caregiver Education Goal Caregiver Independent Assisting Patient Days to Meet Goals 10 Frequency of Treatment Frequency Of Treatment Once a Day Treatment Plan OT Treatment Plan ADL Training,Functional Mobility,Patient/Family Education,Discharge Planning Other Treatment Recommendations and Next shower if still here Treatment Focus Discharge Recommendations OT Discharge Recommendations Home with 05/12 Assist Available,Home Health Home Equipment Needs shower chair, HHPS, sock aid Transportation Needs at Discharge Private Vehicle
[2022-05-12 11:22] VITALS: BP 98/35; PULSE 62; RESP 16; TEMP 37; O2SAT 96
--- NOTE | 2022-05-12 13:42 | PT.IPTN ---
Addendum entered and electronically signed by Anamika Schroeder PTA 05/12/22 19:22: Pt also performed standing mini squats and heel raises during standing brief rest stop mid walk 5 reps each, for BLE strengthening/ posturing/ core fac BUE support on FWW, CGA via son. Original Note: Current Diagnoses Spondylolisthesis, lumbar region (05/11/22) Spinal stenosis, lumbar region with neurogenic claudication (05/11/22) Surgery Performed Operation Date: 05/11/22 07:45 Actual Procedures p L4-5, L5-S1 TLIF w. posterior instrumentation -Robot(Not Applicable) - Tio Lester MD Physical Therapy Treatment Note M2 PT-IP Current Condition Start: 05/12/22 12:31 Freq: NEEDED Status: Discharge Protocol: Document 05/12/22 13:14 [facility] (Rec: 05/12/22 18:18 SP [id number]) Physical Therapy Current Condition Current Condition Evaluation Date 05/12/22 Treatment Diagnosis s/p L4-5, L5S1 TLIF; difficulty in walking Onset Date 05/11/22 M3 PT-IP Subjective Start: 05/12/22 12:31 Freq: NEEDED Status: Discharge Protocol: Document 05/12/22 13:14 [facility] (Rec: 05/12/22 18:18 SP [id number]) Subjective Physical Therapy Visit Type Type Treatment Note Visit Start Time 13:14 Visit Stop Time 13:42 Total Visit Minutes 28 Notes Vitals: supine: 116/64 SaO2 mid/high 90s. Son completed CGT with pt including donning GB properly, able to provide physical assist to trunk and FWW support intial/occasionally needed and he provided pt vcs required throughout tx. Number of CUTTING AND SPLICING SUPERVISOR Visits 1 Physical Therapy Visit Comments Patient Comments Pt agreeable to working with therapy. Patient Goals Return home with but son will be home to provide physical assist requires. Therapy Pain Assessment Pain When Pain Assessed During Mobility Pain Present Pain Present Pain Reported Location L leg pain Intensity 6 Scale Used Numeric (0 - 10) Description Acute,Spasm,With Movement Pain Behaviors Facial Grimacing Pain Management Techniques Apply Cold,Distraction, Modification of Treatment,Re- positioning,Timing of Activity with Medications back Intensity 5 Scale Used Numeric (0 - 10) Pain Management Techniques Distraction,Modification of Treatment,Re-positioning, Timing of Activity with Medications M4 PT-IP Mobility and Gait Start: 05/12/22 12:31 Freq: NEEDED Status: Discharge Protocol: Document 05/12/22 13:14 SP (Rec: 05/12/22 18:18 SP [id number]) PT-Bed Mobility Assessment Rolling Type of Rolling Log Rolling,Roll to Right,Roll to Left Level of Assist Standby Assistance,Contact Guard Assistance,1 Person Assistance Supine to Sit Supine to Sit Minimal Assistance,Moderate Assistance,1 Person Assistance Sit to Supine Sit to Supine Minimal Assistance,1 Person Assistance Scooting Scooting to Edge of Bed Contact Guard Assistance PT-Transfer Assessment Sit to and From Stand Sit to and from Stand Contact Guard Assistance, Minimal Assistance,1 Person Assistance,Use of Upper Extremities Equipment Transfer Assistive Device Gait Belt,Front Wheeled Walker Orthotic/Prosthetic Devices or Brace: No Transfers Transfer Destination Bed Transfer Technique pt ambulated w/ FWW Transfer Ability Level of Assist Contact Guard Assistance, Minimal Assistance,1 Person Assistance,Use of Upper Extremities Comments Mobility Comments Pt good recall to precautions and demonstration. CUTTING AND SPLICING SUPERVISOR instructed pre mobility warm up: AP, heel slide, cues for TA gentle engagement. supine> LR R Min A initially, R SL>sit Mod A x1 for trunk righting while self BLE to EOB and push off bed with R>LUE, scoot to EOB CGA mod heavy BUE WB on bed. SBA seated at EOB. Son donned gait belt on pt to upper trunk. STS w/FWW, cues upright tall posturing, R>L quad facilitation and noted heavy 1UE WB on FWW opposite UE push from bed then trunk support ableto transition to FWW. Unsteady RLE initially, improved quad facilitation. Pt reports pain in LLE WB this tx and didn't before surgery. Forward gait 40 ft w/FWW bed<> bench, bed<>door, seated rest on bed 2 min unsupported. STS /gait 1 more lap in room 30 ft . Pt returned R EOB stand>sit CG/Min A cues proper hand placement throughout tx for I mobility safety, quad facilitation and DF/ placement positioning during advancement improved with distance. Intermittent cues for upright posturing, stop stand rest w/UE and breath brief breaks for tiring recovery. Sit>RSL Min A for RLE into bed/trunk SBA, RSL> supine CGA. Positioned pillows under upper thighs for neutral LS support. Discussed if more comfortable to sleep in recliner is ok as long as back has properly alignment support pillows needed. Pt is ok to return home with and son 05/12 to assist him when medically cleared. CUTTING AND SPLICING SUPERVISOR discussed with nursing pain in LLE per pt not had presurgery and R foot/LE improved gait phase advancement with distance (pt reports similar pre surgery). CUTTING AND SPLICING SUPERVISOR highly recommending HHPT to progress functional strength toward PLOF. Gait Assessment Gait Gait Assistance Required: Moderate Assistance,1 Person Assist Distance (Feet) 60 Able to Maintain Weight Bearing Status Yes During Gait Assistive Devices Assistive Device Gait Belt,Front Wheeled Walker Orthotic/Prosthetic Devices or Brace: No Gait Deviations General Gait Pattern Antalgic,Decreased Stride Length,Decreased Feet Clearance,Flexed Trunk,Narrow Based Gait Factors Limiting Gait Function Factors Limiting Gait Function Decreased Activity Tolerance, Decreased Sensation,Decreased Strength,Limited Range of Motion,Pain,Poor Balance,Poor Safety Awareness,Respiratory Distress Comments Gait Comments Cued body proximity middle/ between back legs FWW, R quad facilitation during midstance and hip flexion/DF RLE during swing through phase, Min cues for upright posturing, slower pacing FWW repositioning for safety during gait. Stair Climbing Assessment Comments Stair Climbing Comments No stairs at home need to assess. PT-Balance Assessment Sitting Balance and Reactions Static Sitting Balance Ability Good Dynamic Sitting Balance Ability Fair Standing Balance and Reactions Static Standing Balance Ability Good Dynamic Standing Balance Ability Fair Device Used FWW M5 PT-IP Objective Assessments Start: 05/12/22 12:31 Freq: NEEDED Status: Discharge Protocol: Document 05/12/22 10:00 AB (Rec: 05/12/22 12:52 AB [id number]) Orientation Orientation/Cognition Level of Alertness Alert Orientation Name,Place,Situation Language Function Ability No Deficits Noted Safety Awareness Decreased Safety Awareness Memory Description Short Term Impaired Gross Range of Motion Lower Extremity ROM Assessment Within Functional Limits Strength Lower Extremity Strength Assessment Bilaterally Impaired Comments Strength Comments LLE: 4-/5 RLE: 3+/5 Sensation Assessment Sensation Gross Sensation Right LE Impaired,Left LE Impaired Sensation Description Numbness Comments Sensation Comments numbness RLE>LLE Muscle Tone Muscle Tone WNL Yes M6 PT-IP Treatment Start: 05/12/22 12:31 Freq: NEEDED Status: Discharge Protocol: Document 05/12/22 13:14 SP (Rec: 05/12/22 18:18 SP [id number]) Physical Therapy Treatment Exercises Exercises Ankle Pumps,Heel Slides Education Education Provided Precautions,Weight Bearing Status,Post-Op Packet,Safety Other Treatments Other Treatment Performed Instructed not to perform SKTC due to to much pressure on LB at this time. M7 PT-IP Assessment and Plan Start: 05/12/22 12:31 Freq: NEEDED Status: Discharge Protocol: Document 05/12/22 13:14 SP (Rec: 05/12/22 18:18 SP [id number]) PT Summary Assessment and Plan Potential Rehabilitation Potential Fair Status of Condition at Evaluation Evolving Summary Impairments Pain,ROM,Strength,Balance, Coordination,Sensation,Tone, Cognition,Bed Mobility, Transfers,Gait,Activity Tolerance Progress Towards Goals Progressing Toward Goals,Slow Progress due to Pain,Slow Progress due to Activity Tolerance Assessment Summary Pt required Mod A trunk righting R SL>sit (no hand rails and HOB flat assimulate home), sit>RSL RLE support in bed, STS Min> CGA w/ FWW, gait around room with FWW CG/ Min A provided by son, good safety/mobility cues posturing / R foot clearance/ R quad facilitation. Pt is ok to return home with son/ assist him when medically cleared. Recommending HHPT for progress in strength toward PLOF LRAD FWW/SPC. Goals Bed Mobility Goal Independent Transfer Goal Standby Assistance,Front Wheeled Walker Gait Goal Standby Assistance,Front Wheel Walker Gait Distance 150 Days to Meet Goals 5 Frequency of Treatment Frequency Of Treatment Twice a Day Treatment Plan Physical Therapy Treatment Plan Bed Mobility Training,Transfer Training,Gait Training, Therapeutic Exercise,Balance Retraining,Post Op Education, Discharge Planning,Hot or Cold Pack,Neuromuscular Re-ed, Coordination Retraining,Manual Therapy Other Recommendations and Next Treatment pre mobility LE ex: AP/ heel Focus slides, bedmob, transfers, gait further distance, standing balance activities. Precautions Lumbar Precautions Log Roll,No Twisting,Limit Bending,Lifting Restriction of 10 lbs,Gait Belt above Incisional Area Recommendations To Nursing Amount of Assist Needed 1 Person Assist Discharge Recommendations PT Discharge Recommendations Home with 24/ Assist Available,Home Health Transportation Needs at Discharge Private Vehicle
--- NOTE | 2022-05-12 16:15 | PC.NURSE ---
Pt is dressed and ready for discharge home with Spouse and son. IV has been removed. Dsg to back changed to Coversite. Went over d/c instructions with Pt and Spouse-discussed d/c meds, time of last dose, reviewed stroke education, s/s of infection, no driving while on narcotics and cleared by MD, no bending, lifting, or twisting and logroll in/out of bed. Drinking plenty of fluids to prevent constipation or dehydration. Pt and Spouse denied further questions and Pt was taken out via w/c by SENIOR UNDERWRITER to pov with family and all belongings.
== END 2022-05-12 16:18 | disposition home or self-care (01) | DRG 454 ==
PROVIDERS: Admitting Provider Orthopaedic Surgery Orthopaedic Surgery of the Spine; PCP Family Medicine; Referring Provider Orthopaedic Surgery Orthopaedic Surgery of the Spine; Visit Provider Orthopaedic Surgery Orthopaedic Surgery of the Spine
PROC: 0SG00AJ Fusion of Lumbar Vertebral Joint with Interbody Fusion Device, Posterior Approach, Anterior Column, Open Approach (ICD-10-PCS; principal; 2022-05-11 07:45)
DX: M48.07 Spinal stenosis, lumbosacral region (principal); G97.41 Accidental puncture or laceration of dura during a procedure; M96.1 Postlaminectomy syndrome, not elsewhere classified; M47.26 Other spondylosis with radiculopathy, lumbar region; M47.27 Other spondylosis with radiculopathy, lumbosacral region; E03.9 Hypothyroidism, unspecified; I95.9 Hypotension, unspecified; Z20.822 Contact with and (suspected) exposure to COVID-19; Z87.891 Personal history of nicotine dependence
CPT/HCPCS: 36415; 72100; 76000; 82962; 85014; 85018; 87635; 97116; 97162; 97165; 97530; C9803; C1713; C9290; J0171; J0330; J0690; J1100; J1170; J2405; J2704

== ENCOUNTER → 2022-07-27 07:57 | Outpatient (CLI) | payer MEDICARE, OTHER, SELFPAY ==
[2022-05-11 14:02] VITALS: BMI 27.8
[2022-07-27 09:24] LABS: Cholesterol 181 mg/dL (140-199); HDL Cholesterol 53 mg/dL (40-60); LDL Cholesterol Calculated 112 mg/dL (<100); Triglycerides 78 mg/dL (35-150)
[2022-07-29 09:52] LABS: Prostate Specific Antigen 4.79 ng/mL (0.10-4.00)
== END ==
PROVIDERS: PCP Family Medicine; Referring Provider Family Medicine; Visit Provider Family Medicine
DX: Z13.6 Encounter for screening for cardiovascular disorders (principal); N40.1 Benign prostatic hyperplasia with lower urinary tract symptoms; N13.8 Other obstructive and reflux uropathy; Z13.9 Encounter for screening, unspecified
CPT/HCPCS: 36415; 80061; 84153

== ENCOUNTER → 2022-09-09 15:42 | Outpatient (CLI) | payer MEDICARE, OTHER, SELFPAY ==
[2022-05-11 14:02] VITALS: BMI 27.8
--- NOTE | 2022-09-09 15:43 | DI.MRI.S_ITS ---
PROCEDURE: MR LUMBAR SPINE WO CON INDICATIONS: s/p L4-S1 fusion with ongoing right L4 and left LE symptoms TECHNIQUE: Noncontrast sagittal T1 spin echo and T2 fast echo, sagittal STIR, and T2 fast spin echo through the lumbar spine. In cases with scoliosis, additional coronal T2 fast spin echo may be performed. COMPARISON: [facility], MR, MR LUMBAR SPINE WO CON, 08/23/2018, 7:16. FINDINGS: Image quality: Excellent. Alignment and Curvature: There is been interval posterior fixation and discectomy from L4-S1. Bone Marrow: Marrow is of normal overall signal. No acute vertebral body compression fractures. Spinal Cord: Conus medullaris terminates at the L1 level. Visualized cord demonstrates normal signal and size. Paraspinous Soft Tissues: No paravertebral masses. Small T2 hyperintense cysts are present within the bilateral kidneys. T12-L1: Moderate disc desiccation and height loss. Broad-based disc bulge. No canal stenosis. Mild bilateral foraminal stenosis. These findings are unchanged from the study dated August 23, 2018. L1-L2: Severe disc desiccation and height loss. Broad-based disc bulge. Mild facet and ligamentum flavum hypertrophy. Mild bilateral foraminal stenosis. Findings are unchanged. L2-L3: Severe disc desiccation and height loss. Broad-based disc bulge. Severe facet and ligamentum flavum hypertrophy. Mild canal stenosis. Moderate right foraminal stenosis. No left foraminal stenosis. The extent of disc desiccation and height loss is increased from the prior study as is the extent of right neural foraminal narrowing. L3-L4: Moderate disc desiccation and height loss. Broad-based disc bulge. Patient is status post right hemilaminectomy and posterior fixation. No canal stenosis. Mild bilateral foraminal stenosis. L4-L5: Moderate disc desiccation and height loss. Discectomy. Posterior fixation. Right hemilaminectomy. No canal stenosis. Mild right and moderate left foraminal narrowing. The extent of foraminal stenosis is decreased when compared with the 2019 study. L5-S1: Severe disc desiccation and height loss. Broad-based disc bulge. Posterior fixation. Moderate bilateral foraminal stenosis. The degree of foraminal narrowing is slightly decreased when compared with the 2019 study. IMPRESSION: 1. Moderate to severe disc desiccation and height loss throughout the lumbar spine which is overall increased in extent from the study dated August 23, 2018. 2. Posterior fixation and discectomy from L4-S1. The extent of foraminal narrowing at L4-5 and L5-S1 is slightly decreased in extent when compared with the prior study and is overall moderate in degree. Dictated by: Ericka Greenfield M.D. on 09/09/2022 at 16:48 Approved by: Ericka Greenfield M.D. on 09/09/2022 at 16:53
== END ==
PROVIDERS: PCP Family Medicine; Referring Provider Physical Medicine & Rehabilitation; Visit Provider Physical Medicine & Rehabilitation
DX: M96.1 Postlaminectomy syndrome, not elsewhere classified (principal); M48.061 Spinal stenosis, lumbar region without neurogenic claudication; M48.07 Spinal stenosis, lumbosacral region; Z98.1 Arthrodesis status
CPT/HCPCS: 72148

== ENCOUNTER → 2022-09-28 12:26 | Outpatient (CLI) | payer MEDICARE, OTHER, SELFPAY ==
[2022-05-11 14:02] VITALS: BMI 27.8
[2022-09-28 14:36] LABS: Prostate Specific Antigen 4.41 ng/mL (0.10-4.00)
== END ==
PROVIDERS: PCP Family Medicine; Referring Provider Family Medicine; Visit Provider Family Medicine
DX: N40.1 Benign prostatic hyperplasia with lower urinary tract symptoms (principal); N13.8 Other obstructive and reflux uropathy
CPT/HCPCS: 36415; 84153

== ENCOUNTER 2022-10-04 15:32 | Outpatient (CLI) | payer MEDICARE, OTHER, SELFPAY ==
[2022-05-11 14:02] VITALS: BMI 27.8
[2022-10-04] VITALS (7 sets, daily range): BP systolic 105–133; BP diastolic 62–77; PULSE 64–77; RESP 14–18; TEMP 36.4; O2SAT 96–100
--- NOTE | 2022-10-04 15:33 | DI.RAD.S_ITS ---
PROCEDURE: PAIN L INTERLAMINAR/CAUDAL INJ INDICATIONS: SPONDYLOSIS COMPARISON: None. FINDINGS: Fluoroscopic spot filming was performed to verify placement of spinal needles at the L4-5 level(s), as labeled on the films. Appropriate location(s) of the needle tip(s) was confirmed by injection of iodinated contrast. IMPRESSION: Fluoroscopic guidance utilized for an interlaminar injection Dictated by: Deuce Pepper M.D. on 10/04/2022 at 16:44 Approved by: Deuce Pepper M.D. on 10/04/2022 at 16:45
[2022-10-04] MEDS: MIDAZOLAM 2 MG/2 ML VIAL IV (16:03)
[2022-10-04] MEDS: BUPIVACAINE 0.25% (PF) VIAL 2 ML INJ (16:05)
[2022-10-04] MEDS: IOPAMIDOL 15 ML VIAL 3 ML INJ (16:06)
[2022-10-04] MEDS: DEXAMETHASONE 10 MG/ML VIAL 20 MG INJ (16:06)
[2022-10-04] MEDS: BETAMETHASONE 30 MG/5 ML MDV 6 MG INJ (16:06)
--- NOTE | 2022-10-04 16:18 | P.PCN_ITS ---
Date/Time/Diagnoses Date of procedure: 10/04/22 Time of procedure: 16:18 Pre-procedure diagnosis: 1. HNP WITH RADICULAR FEATURES, 2. MULTILEVEL CENTRAL STENOSIS, Post-procedure diagnosis: same Procedure Notes Procedure: 1. FLUOROSCOPICALLY GUIDED CONTRAST CONTROLLED INTERLAMINAR EPIDURAL STEROID INJECTION -L4/5 Indications: Cortez is referred by Dr. Grullon for treatment of Bilateral Foraminal Stenosis R>L LE symptoms. Physician: Mane Verdugo Total Fluoroscopy time (seconds): 6 Total sedation minutes: 10 Complications: none Procedure in detail & Post-procedure care: FINDINGS Multilevel Central Spinal Stenosis with Nerve Root Compression DESCRIPTION OF PROCEDURE Fluoroscopically guided, contrast-controlled L4/5 translaminar epidural steroid injection. Following review of allergy and review of potential side effects and complications, including, but not necessarily limited to, infection, allergic reaction, local tissue breakdown, temporary as well as permanent nerve injury, paralysis, stroke and possible , the patient indicated that the patient understood and agreed to proceed. An informed consent document was signed by the patient, witnessed by a nurse, and placed in the patient's chart. Additionally, other treatment options including modalities, medications, and physical therapy were reviewed with the patient. After review of previous anaesthesic history and IV conscious sedation the patient was deemed safe to proceed with today?s procedure with IV conscious sedation as ASA class II designation. Safety time-out was performed to confirm patient ID, procedure to be performed and site of procedure. IV sedation was accomplished with a combination of 2mg of Versed was administered by the RN after DO order, titrated to patient comfort during the course of the procedure while the patient remained responsive to all verbal commands In the prone position, following sterile prep and drape of the lumbar region, the L4/5 translaminar space was identified fluoroscopically. The skin was anesthetized via a 25-gauge, 1.5inch needle with 1% lidocaine solution. At this point, a 22-gauge short bevel spinal needle was atraumatically introduced and advanced under fluoroscopic guidance into the region of the L4/5 translaminar space. Depth was confirmed on lateral view. Radiological data, including multiple fluoroscopic views of the lumbar spine, reveal a spinal needle at the L4/5 translaminar space. Lateral views then show placement of the needle in the epidural space. Subsequent views show contrast material flowing superiorly and inferiorly in the epidural space. No vascular or intrathecal uptake is observed. At this point, using loss of resistance technique with saline and air, the epidural space was entered. This was confirmed following negative aspiration with injection of approximately 1.5cc of Isovue 200, showing excellent epidural flow without vascular or intrathecal uptake. At this point, 1cc of 1% lidocaine solution combined with 3cc or 20mg of dexamethasone and 6mg betamethasone was injected without incident. The patient tolerated the procedure well without signs or symptoms of complications prior to transfer to the recovery area continued monitoring without incident. The patient was then transferred to the recovery area where they were observed for an appropriate period of time after the injection. The patient reported a VAS score of 6 prior to the procedure and a post- procedure VAS of 0. POST OP INSTRUCTIONS The patient was provided a Pain Log to continue to record their response to the target-specific procedure prior to follow-up visit with their referring physician. Additionally, specific post-injection care instructions and a contact number to our office were provided if concerns arise regarding possible complications associated with the procedure are suspected.
== END 2022-10-04 16:34 | disposition home or self-care (01) ==
PROVIDERS: PCP Family Medicine; Referring Provider Physical Medicine & Rehabilitation; Visit Provider Physical Medicine & Rehabilitation
DX: M96.1 Postlaminectomy syndrome, not elsewhere classified (principal); M54.16 Radiculopathy, lumbar region; Z98.1 Arthrodesis status; M48.061 Spinal stenosis, lumbar region without neurogenic claudication
CPT/HCPCS: 62323; 99152; J1100; J2250; J3490

== ENCOUNTER → 2022-10-09 09:46 | Outpatient (CLI) | payer MEDICARE, OTHER, SELFPAY ==
[2022-10-05 12:01] VITALS: BMI 27.8
--- NOTE | 2022-10-09 09:48 | DI.MRI.S_ITS ---
PROCEDURE: MR PELIS WO/W CON INDICATIONS: elevated PSA TECHNIQUE: Coronal HASTE, axial T1 FSE with fat saturation, 3-plane nonbreath-hold T2 FSE. After the administration of contrast, dynamic axial, delayed axial and coronal VIBE or 2-D FLASH with fat saturation through the pelvis. Optional diffusion weighted imaging and ADC may be performed. COMPARISON: None. FINDINGS: Image quality: Diffusion-weighted images are mildly compromised artifact from rectal stool/gas. Motion artifact is present several sequences. Prostate: Gland size is 4.9 x 3.1 x 4.0 cm; ellipsoid gland volume is 32 mL. Possible TURP defect. Mild linear and wedge-shaped ADC hypointensities present within the prostate peripheral zone with indistinct T2 correlates (PI-RADS 2 findings). Enlargement of the prostate transitional zone with findings typical of benign prostatic hyperplasia. No large lesion strongly stands out against background parenchymal changes of BPH on T2 weighted images (PI-RADS 2 findings). Genitourinary system: Bladder wall thickness is normal. Distal ureters are non distended. Bowel and peritoneum: No pathologic free pelvic fluid. Inferior colon and small bowel loops are normal in caliber. Nodes and vessels: No pelvic or inguinal adenopathy by size criteria. Iliac vessels are normal in caliber. Bones: Marrow demonstrates unremarkable overall signal, without lesions to suggest metastases. Lumbar spine fusion changes. IMPRESSION: 1. No large or highly suspicious focal prostate lesion to direct biopsy. 2. No suspicious lymph nodes identified in the imaged pelvis. Dictated by: Mario Jose M.D. on 10/11/2022 at 8:12 Approved by: Mario Jose M.D. on 10/11/2022 at 9:00
== END ==
PROVIDERS: PCP Family Medicine; Referring Provider Specialist; Visit Provider Specialist
DX: R68.89 Other general symptoms and signs (principal); N40.1 Benign prostatic hyperplasia with lower urinary tract symptoms; N13.8 Other obstructive and reflux uropathy; R97.20 Elevated prostate specific antigen [PSA]
CPT/HCPCS: 72197; A9579

== ENCOUNTER 2023-03-30 13:55 | Outpatient (CLI) | payer MEDICARE, SELFPAY ==
[2022-10-05 12:01] VITALS: BMI 27.8
[2023-03-30] VITALS (8 sets, daily range): BP systolic 110–141; BP diastolic 66–83; PULSE 64–72; RESP 15–23; TEMP 36.2; O2SAT 95–100
--- NOTE | 2023-03-30 14:30 | DI.RAD.S_ITS ---
PROCEDURE: PAIN L INTERLAMINAR/CAUDAL INJ INDICATIONS: para Right L5-S1 TRANSLAMINAR EPIDURAL STEROID INJECTION COMPARISON: [facility], XA, PAIN L INTERLAMINAR/CAUDAL INJ, 10/04/2022, 16:05. FINDINGS: Fluoroscopic spot filming was performed to verify placement of spinal needles at the L5-S1 interlaminar level(s), as labeled on the films. Appropriate location(s) of the needle tip(s) was confirmed by injection of iodinated contrast. IMPRESSION: [place]uka needle placed in the L5-S1 interlaminar space for translaminar epidural steroid injection. Dictated by: Eladia Ny MD, PhD on 03/30/2023 at 15:15 Approved by: Eladia Ny MD, PhD on 03/30/2023 at 15:15
[2023-03-30] MEDS: MIDAZOLAM 2 MG/2 ML VIAL IV (14:57)
[2023-03-30] MEDS: iopamidoL 15 ML VIAL 3 ML INJ (15:00)
[2023-03-30] MEDS: DEXAMETHASONE 10 MG/ML VIAL INJ (15:00)
[2023-03-30] MEDS: BUPIVACAINE 0.25% (PF) VIAL 2 ML INJ (15:01)
[2023-03-30] MEDS: BETAMETHASONE 30 MG/5 ML MDV 6 MG INJ (15:01)
--- NOTE | 2023-03-30 15:11 | P.PCN_ITS ---
Date/Time/Diagnoses Date of procedure: 03/30/23 Time of procedure: 15:11 Pre-procedure diagnosis: 1. HNP WITH RADICULAR FEATURES, 2. MULTILEVEL CENTRAL STENOSIS, Post-procedure diagnosis: same Procedure Notes Procedure: 1. FLUOROSCOPICALLY GUIDED CONTRAST CONTROLLED INTERLAMINAR EPIDURAL STEROID INJECTION - L5/S1 Indications: Cortez is referred by Dr. Grullon for treatment of Bilateral Foraminal Stenosis L>R LE symptoms. Physician: Mane Verdugo Total Fluoroscopy time (seconds): 10 Total sedation minutes: 10 Complications: none Procedure in detail & Post-procedure care: FINDINGS Multilevel Central Spinal Stenosis with Nerve Root Compression DESCRIPTION OF PROCEDURE Fluoroscopically guided, contrast-controlled L5/S1 translaminar epidural steroid injection. Following review of allergy and review of potential side effects and complications, including, but not necessarily limited to, infection, allergic reaction, local tissue breakdown, temporary as well as permanent nerve injury, paralysis, stroke and possible , the patient indicated that the patient understood and agreed to proceed. An informed consent document was signed by the patient, witnessed by a nurse, and placed in the patient's chart. Additionally, other treatment options including modalities, medications, and physical therapy were reviewed with the patient. After review of previous anaesthesic history and IV conscious sedation the patient was deemed safe to proceed with today?s procedure with IV conscious sedation as ASA class II designation. Safety time-out was performed to confirm patient ID, procedure to be performed and site of procedure. IV sedation was accomplished with a combination of 2mg of Versed administered by the RN after DO order, titrated to patient comfort during the course of the procedure while the patient remained responsive to all verbal commands. In the prone position, following sterile prep and drape of the lumbar region, the L5/S1 translaminar space was identified fluoroscopically. The skin was anesthetized via a 25-gauge, 1.5-inch needle with 1% lidocaine solution. At this point, a 22-gauge short bevel spinal needle was atraumatically introduced and advanced under fluoroscopic guidance into the region of the L5/S1 translaminar space. Depth was confirmed on lateral view. Radiological data, including multiple fluoroscopic views of the lumbar spine, reveal a spinal needle at the L5/S1 translaminar space. Lateral views then show placement of the needle in the epidural space. Subsequent views show contrast material flowing superiorly and inferiorly in the epidural space. No vascular or intrathecal uptake is observed. At this point, using loss of resistance technique with saline and air, the epidural space was entered. This was confirmed following negative aspiration with injection of approximately 1.5cc of Isovue 200, showing excellent epidural flow without vascular or intrathecal uptake. At this point, 1 cc of 1% lid ocaine solution combined with 2cc or 10mg of dexamethasone and 6mg of betamethasone was injected without incident. The patent tolerated the procedure without signs of symptoms of complications prior to transfer to the recovery area for further monitoring. The patient was then transferred to the recovery area where they were observed for an appropriate period of time after the injection. The patient reported a VAS score of 6 prior to the procedure and a post-procedure VAS of 0. POST OP INSTRUCTIONS The patient was provided a Pain Log to continue to record their response to the target-specific procedure prior to follow-up visit with their referring physician. Additionally, specific post-injection care instructions and a contact number to our office were provided if concerns arise regarding possible complications associated with the procedure are suspected.
== END 2023-03-30 15:31 | disposition home or self-care (01) ==
LOC: RAD 13:56
PROVIDERS: PCP Family Medicine; Referring Provider Physical Medicine & Rehabilitation; Visit Provider Physical Medicine & Rehabilitation
DX: M51.17 Intervertebral disc disorders with radiculopathy, lumbosacral region (principal); M48.07 Spinal stenosis, lumbosacral region
CPT/HCPCS: 62323; 99152; J0702; J1100; J2250; J3490

== ENCOUNTER → 2023-04-04 07:25 | Outpatient (CLI) | payer MEDICARE, SELFPAY ==
[2022-10-05 12:01] VITALS: BMI 27.8
[2023-04-06 06:29] LABS: PSA Free % 12.8 % (.); PSA, Total 4.7 ng/mL (0.0-4.0)
== END ==
PROVIDERS: PCP Family Medicine; Referring Provider Specialist; Visit Provider Specialist
DX: R97.20 Elevated prostate specific antigen [PSA] (principal)
CPT/HCPCS: 36415; 84153; 84154

== ENCOUNTER → 2023-06-24 07:45 | Outpatient (CLI) | payer MEDICARE, SELFPAY ==
[2022-10-05 12:01] VITALS: BMI 27.8
--- NOTE | 2023-06-24 | DI.MRI.S_ITS ---
PROCEDURE: MR LUMBAR SPINE WO CON INDICATIONS: THORACIC/LUMBAR PAIN TECHNIQUE: Noncontrast sagittal T1 spin echo and T2 fast echo, sagittal STIR, and T2 fast spin echo through the lumbar spine. In cases with scoliosis, additional coronal T2 fast spin echo may be performed. COMPARISON: [facility], MR, MR LUMBAR SPINE WO CON, 09/09/2022, 16:03. FINDINGS: Image quality: Excellent. Alignment and Curvature: Posterior fusion is present from L4 through S1. There is trace retrolisthesis of L1 on L2, L2 on L3, L4 on L5 and L5 on S1, unchanged. Bone Marrow: Marrow is of normal overall signal. No acute vertebral body compression fractures. Spinal Cord: Conus medullaris terminates at the L1 level. Visualized cord demonstrates normal signal and size. There is a dependent, somewhat thickened peripheral appearance of the nerve roots particularly at L5 slightly progressive compared to prior exam. Paraspinous Soft Tissues: No paravertebral masses. Bilateral renal T2 hyperintensities are present most suggestive of simple cysts. Discs: Multilevel moderate to severe disc desiccation. T12-L1: Minimal disc bulge without spinal stenosis. Minimal right foraminal narrowing. No interval progression. L1-L2: Mild disc bulge with minimal spinal stenosis. Mild right and moderate left foraminal narrowing with facet and ligamentum flavum hypertrophy. No interval change. L2-L3: Mild disc bulge with mild spinal stenosis. There is prominent narrowing through the right subarticular recess as well as mild left foraminal narrowing. Facet and ligamentum flavum hypertrophy are present. Overall appearance has not significantly changed. L3-L4: Mild disc bulge without spinal stenosis. Moderate left and mild right foraminal narrowing, unchanged in appearance. Facet and ligamentum flavum hypertrophy are present. No interval change. L4-L5: Postsurgical changes. No spinal stenosis. Mild right and moderate left foraminal narrowing without interval change. L5-S1: Mild disc bulge without spinal stenosis. Moderate bilateral foraminal narrowing, unchanged. IMPRESSION: Stable postsurgical changes. Multilevel spinal stenosis and foraminal narrowing overall stable. It is noted that nerve roots appears somewhat more dependently clumped/thickened at the level of L5 compared to prior exam. This could be postsurgical in nature. Recommend correlation to any symptoms of arachnoiditis. Dictated by: Hedy Florez M.D. on 06/26/2023 at 10:48 Approved by: Hedy Florez M.D. on 06/26/2023 at 12:43
--- NOTE | 2023-06-24 | DI.MRI.S_ITS ---
PROCEDURE: MR THORACIC SPINE WO CON INDICATIONS: THORACIC/LUMBAR PAIN TECHNIQUE: Noncontrast sagittal T1 spine echo and T2 fast spin echo, sagittal STIR, and T2 fast spin echo through the thoracic spine. COMPARISON: [facility], , T-SPINE WITHOUT CONTRAST, 08/24/2015, 15:56. FINDINGS: Image quality: Excellent. Alignment and Curvature: There is normal bony alignment. Bone Marrow: Marrow is of normal overall signal. No acute vertebral body compression fractures. Spinal Cord: Visualized spinal cord is normal in size and signal. Paraspinous Soft Tissues: No paravertebral masses. Miscellaneous: On axial images, central canal appears widely patent at all scanned levels. Multilevel minimal scattered disc desiccation. Minimal scattered disc bulges are present most notable at T6-7, T7-8, T9-10. Minimal foraminal narrowing is present at T7-8, T8-9, T9-10, T10-11, T11-12. IMPRESSION: Scattered disc desiccation disc bulges. No gross spinal stenosis. Minimal scattered areas of foraminal narrowing as above. Dictated by: Hedy Florez M.D. on 06/26/2023 at 10:36 Approved by: Hedy Florez M.D. on 06/26/2023 at 10:47
== END ==
LOC: MRI 07:46
PROVIDERS: PCP Family Medicine; Referring Provider Physical Medicine & Rehabilitation; Visit Provider Physical Medicine & Rehabilitation
DX: M48.062 Spinal stenosis, lumbar region with neurogenic claudication (principal); M48.07 Spinal stenosis, lumbosacral region; M47.816 Spondylosis without myelopathy or radiculopathy, lumbar region; M51.36 Other intervertebral disc degeneration, lumbar region; M51.37 Other intervertebral disc degeneration, lumbosacral region; Z98.1 Arthrodesis status
CPT/HCPCS: 72146; 72148

== ENCOUNTER → 2023-07-13 10:26 | Outpatient (CLI) | payer MEDICARE, SELFPAY ==
[2022-10-05 12:01] VITALS: BMI 27.8
[2023-07-15 10:30] LABS: PSA, Total 4.6 ng/mL (0.0-4.0)
== END ==
PROVIDERS: PCP Family Medicine; Referring Provider Specialist; Visit Provider Specialist
DX: N40.1 Benign prostatic hyperplasia with lower urinary tract symptoms (principal); N13.8 Other obstructive and reflux uropathy; R97.20 Elevated prostate specific antigen [PSA]
CPT/HCPCS: 36415; 84153; 84154

== ENCOUNTER → 2023-08-01 07:40 | Outpatient (CLI) | payer MEDICARE, SELFPAY ==
[2022-10-05 12:01] VITALS: BMI 27.8
[2023-08-01 08:56] LABS: Hematocrit 35.8 % (41-53); Hemoglobin 12.1 g/dL (13.5-17.5); Mean Corpuscular Volume 108.9 fL (80-100); Platelet Count 97 X10^3/uL (150-400); Red Blood Cell Count 3.28 X10^6/uL (4.5-5.9); Red Cell Distribution Width 14.5 % (11.6-14.8); White Blood Cell Count 2.4 X10^3/uL (4.5-11.0)
[2023-08-01 08:57] LABS: Add Manual Diff / Slide Review YES
[2023-08-01 09:12] LABS: Anisocytosis 1+; Neutrophils Absolute Manual 72 /uL (3000-5900); Total Cells Counted 100
[2023-08-01 09:33] LABS: HEMOLYSIS < 15 (0-50); Iron 129 ug/dL (49-181)
[2023-08-01 09:35] LABS: Alanine Aminotransferase 25 IU/L (<50); Albumin 3.9 g/dL (3.5-5.0); Albumin Globulin Ratio 1.4 (1.0-2.8); Alkaline Phosphatase 42 U/L (38-126); Aspartate Aminotransferase 30 IU/L (17-59); BUN Creatinine Ratio 25.3 (6-22); Bilirubin Total 0.6 mg/dL (0.2-1.3); Blood Urea Nitrogen 21 mg/dL (9-20); Carbon Dioxide 28 mmol/L (22-32); Chloride 108 mmol/L (98-107); Cholesterol 162 mg/dL (140-199); Estimated Glomerular Filt Rate > 60 mL/min (>60); Globulin 2.8 g/dL (1.7-4.1); Glucose 69 mg/dL (80-110); HDL Cholesterol 47 mg/dL (40-60); HEMOLYSIS < 15 (0-50); LDL Cholesterol Calculated 98 mg/dL (<100); Potassium 4.2 mmol/L (3.4-5.1); Sodium 139 mmol/L (137-145); Total Protein 6.7 g/dL (6.3-8.2); Triglycerides 87 mg/dL (35-150)
[2023-08-01 09:50] LABS: Percent Iron Saturation 46 % (20-50); Total Iron Binding Capacity 281 ug/dL (261-462); Transferrin 219 mg/dL (206-381)
[2023-08-01 10:06] LABS: Thyroid Stimulating Hormone 0.121 uIU/mL (0.47-4.68)
[2023-08-01 10:23] LABS: Vitamin B12 788 pg/mL (239-931)
== END ==
LOC: LAB 07:41
PROVIDERS: PCP Family Medicine; Referring Provider Family Medicine; Visit Provider Family Medicine
DX: Z00.00 Encounter for general adult medical examination without abnormal findings (principal); R94.6 Abnormal results of thyroid function studies; E03.9 Hypothyroidism, unspecified; D70.9 Neutropenia, unspecified; D61.818 Other pancytopenia; D51.0 Vitamin B12 deficiency anemia due to intrinsic factor deficiency
CPT/HCPCS: 36415; 80053; 80061; 82607; 83540; 83550; 84439; 84443; 85007; 85025

== ENCOUNTER 2023-08-29 07:56 | Outpatient (CLI) | payer MEDICARE, SELFPAY ==
[2022-10-05 12:01] VITALS: BMI 27.8
[2023-08-29 08:25] VITALS: BP 106/58; PULSE 74; RESP 14; TEMP 35.9; O2SAT 97
--- NOTE | 2023-08-29 08:45 | DI.RAD.S_ITS ---
PROCEDURE: PAIN L INTERLAMINAR/CAUDAL INJ INDICATIONS: pOST FUSION SYNDROME COMPARISON: X-ray lumbar spine, 05/04/2023. FINDINGS: Fluoroscopic spot filming was performed to verify placement of spinal needles at the L4-L5 level(s), as labeled on the films. Appropriate location(s) of the needle tip(s) was confirmed by injection of iodinated contrast. Note is made of postsurgical changes with discectomy and posterior fusion at L4-L5 and L5-S1. IMPRESSION: Fluoroscopy for pain management. Dictated by: Marcelino Núñez M.D. on 08/29/2023 at 12:44 Approved by: Marcelino Núñez M.D. on 08/29/2023 at 12:44
[2023-08-29 09:01] VITALS: BP 98/59; PULSE 59; RESP 14; O2SAT 100
[2023-08-29] MEDS: MIDAZOLAM 2 MG/2 ML VIAL IV (09:01)
[2023-08-29 09:06] VITALS: BP 92/61; PULSE 64; RESP 13; O2SAT 96
[2023-08-29 09:11] VITALS: BP 103/62; PULSE 65; RESP 14; O2SAT 96
[2023-08-29] MEDS: iopamidoL 15 ML VIAL 3 ML INJ (09:11)
[2023-08-29] MEDS: DEXAMETHASONE 10 MG/ML VIAL IV (09:12)
[2023-08-29] MEDS: BETAMETHASONE 30 MG/5 ML MDV 6 MG INJ (09:12)
[2023-08-29] MEDS: BUPIVACAINE 0.25% (PF) VIAL 2 ML INJ (09:13)
--- NOTE | 2023-08-29 09:18 | P.PCN_ITS ---
Date/Time/Diagnoses Date of procedure: 08/29/23 Time of procedure: 09:18 Pre-procedure diagnosis: 1. HNP WITH RADICULAR FEATURES, 2. MULTILEVEL CENTRAL STENOSIS, Post-procedure diagnosis: same Procedure Notes Procedure: 1. FLUOROSCOPICALLY GUIDED CONTRAST CONTROLLED INTERLAMINAR EPIDURAL STEROID INJECTION -L4/5 Indications: Cortez is referred by Dr. Grullon for treatment of Bilateral Foraminal Stenosis R>L LE symptoms. Physician: Mane Verdugo Total Fluoroscopy time (seconds): 4 Total sedation minutes: 12 Complications: none Procedure in detail & Post-procedure care: FINDINGS Multilevel Central Spinal Stenosis with Nerve Root Compression DESCRIPTION OF PROCEDURE Fluoroscopically guided, contrast-controlled L4/5 translaminar epidural steroid injection. Following review of allergy and review of potential side effects and complications, including, but not necessarily limited to, infection, allergic reaction, local tissue breakdown, temporary as well as permanent nerve injury, paralysis, stroke and possible , the patient indicated that the patient understood and agreed to proceed. An informed consent document was signed by the patient, witnessed by a nurse, and placed in the patient's chart. Additionally, other treatment options including modalities, medications, and physical therapy were reviewed with the patient. After review of previous anaesthesic history and IV conscious sedation the patient was deemed safe to proceed with today?s procedure with IV conscious sedation as ASA class II designation. Safety time-out was performed to confirm patient ID, procedure to be performed and site of procedure. IV sedation was accomplished with a combination of 2mg of Versed was administered by the RN after DO order, titrated to patient comfort during the course of the procedure while the patient remained responsive to all verbal commands In the prone position, following sterile prep and drape of the lumbar region, the L4/5 translaminar space was identified fluoroscopically. The skin was anesthetized via a 25-gauge, 1.5inch needle with 1% lidocaine solution. At this point, a 22-gauge short bevel spinal needle was atraumatically introduced and advanced under fluoroscopic guidance into the region of the L4/5 translaminar space. Depth was confirmed on lateral view. Radiological data, including multiple fluoroscopic views of the lumbar spine, reveal a spinal needle at the L4/5 translaminar space. Lateral views then show placement of the needle in the epidural space. Subsequent views show contrast material flowing superiorly and inferiorly in the epidural space. No vascular or intrathecal uptake is observed. At this point, using loss of resistance technique with saline and air, the epidural space was entered. This was confirmed following negative aspiration with injection of approximately 1.5cc of Isovue 200, showing excellent epidural flow without vascular or intrathecal uptake. At this point, 1cc of 1% lidocaine solution combined with 2cc or 10mg of dexamethasone and 6mg betamethasone was injected without incident. The patient tolerated the procedure well without signs or symptoms of complications prior to transfer to the recovery area continued monitoring without incident. The patient was then transferred to the recovery area where they were observed for an appropriate period of time after the injection. The patient reported a VAS score of 7 prior to the procedure and a post- procedure VAS of 1. POST OP INSTRUCTIONS The patient was provided a Pain Log to continue to record their response to the target-specific procedure prior to follow-up visit with their referring physician. Additionally, specific post-injection care instructions and a contact number to our office were provided if concerns arise regarding possible complications associated with the procedure are suspected.
[2023-08-29 09:20] VITALS: BP 114/66; PULSE 63; RESP 16; O2SAT 98
[2023-08-29 09:25] VITALS: BP 105/65; PULSE 68; RESP 18; O2SAT 96
--- NOTE | 2023-08-29 10:15 | PC.NURSE ---
Patient returned from procedure room with RLE weakness on transfer from to [facility]. Patient reports numbness at baseline but this is additional to that. Dr. Verdugo aware.
--- NOTE | 2023-08-29 10:15 | PC.NURSE ---
1007 Patient stood with 2 person SBA, able to stand and take multiple steps. Patient reports he is back to baseline moblitliy. He reports numbness and weakness intermittently to the RLE pre-procedure and uses a cane prn. He has met criteria for discharge.
== END 2023-08-29 10:10 | disposition home or self-care (01) ==
LOC: RAD 07:57
PROVIDERS: PCP Family Medicine; Referring Provider Physical Medicine & Rehabilitation; Visit Provider Physical Medicine & Rehabilitation
DX: M51.16 Intervertebral disc disorders with radiculopathy, lumbar region (principal); M48.061 Spinal stenosis, lumbar region without neurogenic claudication
CPT/HCPCS: 62323; 99152; J0702; J1100; J2250; J3490

== ENCOUNTER → 2024-06-11 07:03 | Outpatient (CLI) | payer MEDICARE, SELFPAY ==
[2022-10-05 12:01] VITALS: BMI 27.8
--- NOTE | 2024-06-11 07:05 | DI.US.S_ITS ---
PROCEDURE: US ARTERIAL DUPLEX LE RT INDICATIONS: COLD RIGHT FOOT TECHNIQUE: Color and pulse Doppler interrogation was performed of the right lower extremity arterial system, with image documentation. COMPARISON: None. FINDINGS: Common femoral artery: 86 cm/sec, with triphasic flow. Deep femoral artery: 81 cm/sec, with triphasic flow. Proximal superficial femoral artery: 74 cm/sec, with triphasic flow. Mid superficial femoral artery: 100 cm/sec, with triphasic flow. Distal superficial femoral artery: 67 cm/sec, with triphasic flow. Popliteal artery: 41 cm/sec, with triphasic flow. Posterior tibial artery: 29 cm/sec, with biphasic flow. Anterior tibial artery/dorsalis pedis: 73 cm/sec, with triphasic flow. Sumner-scale imaging description: Scattered plaque IMPRESSION: No hemodynamically significant stenosis. Dictated by: Hedy Florez M.D. on 06/11/2024 at 10:07 Approved by: Hedy Florez M.D. on 06/11/2024 at 10:09
== END ==
PROVIDERS: PCP Family Medicine; Referring Provider Podiatrist; Visit Provider Podiatrist
DX: R20.9 Unspecified disturbances of skin sensation (principal)
CPT/HCPCS: 93926

== ENCOUNTER → 2024-06-13 15:37 | Outpatient (CLI) | payer MEDICARE, SELFPAY ==
[2022-10-05 12:01] VITALS: BMI 27.8
== END ==
PROVIDERS: PCP Family Medicine; Visit Provider Urology
DX: R39.9 Unspecified symptoms and signs involving the genitourinary system (principal)
CPT/HCPCS: 87086

== ENCOUNTER 2024-06-18 07:29 | Day surgery (SDC) | payer MEDICARE, SELFPAY ==
[2022-10-05 12:01] VITALS: BMI 27.8
[2024-06-13 14:09] VITALS: BMI 29.6
[2024-06-18] VITALS (11 sets, daily range): BP systolic 104–136; BP diastolic 59–78; PULSE 61–76; RESP 10–16; TEMP 36.1–36.6; O2SAT 92–100; BMI 29.2
--- NOTE | 2024-06-18 | PATH_ITS ---
[facility] Accession Number: [id number] No. of containers..01 Tissue . 01 Material submitted: . prostate - PROSTATE CHIPS . 01 Diagnosis: PROSTATE CHIPS, TRANSURETHRAL PROSTATE TISSUE RESECTION: Invasive prostatic adenocarcinoma, conventional/acinar type, total Dale score 6 (primary pattern 3, secondary pattern 3), involving two out of twenty-one fragments examined, approximately 5-10% of the submitted tissue. Negative for perineural invasion. Negative for cribriform gland formation. Grade group: 1 (3+3). Additional findings: Glandular/stromal hypertrophy and overlying urothelial mucosa without pathologic abnormalities. Please see microscopic description. MRV 06/24/2024 1341 Local . 01 Electronically signed: . Humberto Cody MD, Pathologist NPI- [id number] . 01 Gross description: . Received in formalin with two identifiers and prostate chips, are multiple navarro soft tissue fragments weighing 1 gram and aggregating to 2.5 x 2.2 x 0.3 cm. Submitted entirely in cassette A1. ([id number]) /CANDELARIA 06/19/2024 0939 Local . 01 Microscopic: . Immunostains are performed with the following results: . PSA: Tumor cells positive. GATA3: Tumor cells negative. High molecular weight cytokeratin/p63 confirms absence of myoepithelial/basal cell layer, supporting invasive prostatic acini and AMACR immunostain shows overexpression on the invasive acini. . These results support the diagnosis and support prostatic origin (over urothelial origin, given PSA positive and GATA3 negative). . Technical note: * This test was developed and the performance characteristics were validated by [employer]. It has not been cleared or approved by the U.S. Food and Drug Administration. . 01 Pathologist provided ICD-10: C61, N40.1 . 01 CPT . 308650, D28619, V25857, B35353 Specimen Comment: A courtesy copy of this report has been sent to [phone] Performed at: [address] [id number] MD Oscar Sanabria MD Phone: [phone]
--- NOTE | 2024-06-18 08:30 | PM.PREOP ---
Pre-operative Note COVID-19 COVID-19 status: Not tested Interval Note History & Physical reviewed/Exam performed by Physician: Yes Changes to H&P: No
[2024-06-18] MEDS: LACTATED RINGERS 1,000 ML 42 ML IV ×2 (08:38→11:13)
[2024-06-18] MEDS: PREGABALIN 75 MG CAPSULE 150 MG PO (08:45)
[2024-06-18] MEDS: ACETAMINOPHEN 325 MG TABLET 975 MG PO (08:45)
[2024-06-18] MEDS: FAMOTIDINE 20 MG/2 ML VIAL IV (08:46)
--- NOTE | 2024-06-18 09:08 | SUR.OPER ---
Lithotomy on padded OR bed, head on pillow, arms secured on padded arm boards at <90 degrees abduction. Legs secured in padded yellow fins stirrups.
[2024-06-18] MEDS: CEFAZOLIN 2 GM/100 ML PREMIX 100 ML IV (09:25)
--- NOTE | 2024-06-18 10:41 | PM.OP.1 ---
Procedure & Clinicians Procedure: 1. Aquablation 2. Transrectal ultrasound of prostate 3. Transurethral resection of prostate with fulguration 4. Mohan catheter placement Same procedure as scheduled: Yes Indications: This 79-year-old male had in the past a Transurethral resection of prostate. He had resurgence symptoms and was found to have regrowth of the prostate especially on the left. He also had a diminished uroflow with a Q max of 11 AUA symptom score of 24 and a 32 g prostate. He presents at this time for Aquablation to eliminate his lower urinary tract symptoms/bladder outlet obstruction, incomplete emptying of bladder. Surgeon: Kieran Barclay Click Yes if Unassisted: Yes Anesthesia Type: General Operative Notes Findings: Urethral meatus is normal, urethra is normal along its length with normal mucosa. The sphincter as well coapted. The prostate shows bilobar obstructive character left greater than right no bulging into the bladder and no median lobe. The ureteral orifices in normal position with clear efflux at the beginning and at the end of the procedure. The bladder exhibits severe trabeculation there were no other worrisome mucosal lesions within the bladder. At the end of the procedure the prostatic fossa was widely patent in the patient had a vigorous stream as the scope was removed. Total Aquablation time 4 minutes 40 seconds total procedure time 55 minutes (truss in 2 catheter in). A [address] hematuria catheter was left in place with 45 cc in the balloon and it was connected to continuous bladder irrigation. Closure Type: not applicable Specimen(s): other (Prostate chips) Prosthetic devices, grafts, tissues, transplants, or devices: [address] 30 [address] hematuria catheter with 45 cc in the balloon was left in place connected to continuous bladder irrigation. Estimated Blood Loss (mL): 20 Blood products transfused: none Procedure in detail: Procedure in detail: After informed consent was obtained, the patient was identified brought to the operating room where he was placed in the supine position on the table. Once there anesthesia was induced and maintained. Ensuring an adequate level of anesthesia the patient was transitioned to the lithotomy position where he was sterilely prepped. Ensuring an adequate level of anesthesia, after time-out and administration of antibiotics 60 cc of ultrasound gel was instilled in the patient's rectum followed by the ultrasound probe which was mounted to the trust stepper which was mounted to the articulating arm which he had been secured to the bed. The ultrasound probe was then aligned confirming that the prostate was centered and aligned in both the transverse and longitudinal views. The bladder neck verumontanum the central and transitional zones were identified. With the ultrasound probe in place and aligned the patient was then draped in a sterile fashion. At this point the 24 Hungarian aqua beam handpiece was inserted through the urethra prostate and into the bladder under direct vision and ultrasound guidance. Cystoscopy was performed. And as the scope was inserted the level of the sphincter, verumontanum, mid prostate and bladder neck were noted on the ultrasound. The aqua beam handpiece was then secured to the handpiece articulating arm. Confirmation was then performed that the alignment of the hand piece and the truss probe were parallel and colinear. The Aquablation handpiece was confirmed to be centered and anterior to the bladder neck. The cystoscope was then retracted and the external sphincter verumontanum were visualized in the tip of the scope was left just proximal to the external sphincter. The handpiece and ultrasound probe and once again confirmed to be colinear and aligned. And then using the truss probe some compression was applied to the prostate. Horizontal alignment of the handpiece water jet was performed such that it came out at the 3 and 9 o'clock position. With these things being true the treatment zones were then planned utilizing real-time live ultrasound to visualize the contour of the prostate in both longitudinal and transverse few in the widest transverse view the depth and radial angles of resection were defined and entered into the system. In the longitudinal view the aqua beam nozzle was identified in his pinch position registered with the software. As was the tip of the cystoscope less defining the length of resection. The treatment plan was then continued in the longitudinal view marking the started resection bladder neck mid prostate and tip of the scope or end of resection. The contours were then defined. With these confirmed and ensuring the patient would not move the Aquablation treatment was started and the resection follow the confirmed contour. A 2nd pass was performed after adjusting the contour. The total resection time for the to pass as it was 4 minutes 40 seconds. With this completed the cystoscope was advanced to the tip of the hand piece and the entire unit was looked out cystoscopically. At this point the resectoscope was put in place with direct vision obturator. Ellik evacuator was then employed to evacuate the any clot from the bladder. At this point the resecting element was inserted and the ureteral orifices identified. Then the bladder neck was resected from the 2:00 a.m. to 10 o'clock position. Points of bleeding were controlled with the electrocautery. The anterior prostate at the 12 o'clock position was then inspected and the few points of bleeding were controlled. Coming back to the level of the verumontanum there was some small amount of apical tissue on the right and left which was resected and points of bleeding controlled. With this completed the Ellik evacuator was then used to irrigate the bladder removing all remaining prostate chips. The resection hand piece was once again inserted and the last couple points of bleeding were controlled. The bladder was left full the scope was removed and the patient had a vigorous stream. The 22 Hungarian hematuria catheter was then passed with ultrasound visualization and aid of a catheter guide the balloon was filled with 45 cc of sterile water and placed to gravity drainage. Continuous bladder irrigation was hooked up and run in the effluent remained at the dark is light pink. At this point the patient was awakened having tolerated the procedure well to be transferred to the postanesthesia care unit for recovery. There were no complications and as the patient left the operating room the CBI was running. The catheter was secured with a securing device. Complications: none Post-operative Condition: stable Disposition: PACU Plan for aftercare: Once the patient is sent home he will follow up in my office this for likely catheter removal and then approximately 10-14 days after that.
[2024-06-18] MEDS: PHENAZOPYRIDINE 100 MG TABLET 200 MG PO (11:29)
[2024-06-18] MEDS: OXYBUTYNIN 5 MG TABLET PO (11:29)
[2024-06-18] MEDS: OXYCODONE IR 5 MG TABLET PO (12:09)
[2024-06-18] MEDS: ONDANSETRON 4 MG/2 ML INJ IV (12:24)
== END 2024-06-18 14:13 | disposition home or self-care (01) ==
PROVIDERS: PCP Family Medicine; Referring Provider Urology; Visit Provider Urology
PROC: 0VT08ZZ Resection of Prostate, Via Natural or Artificial Opening Endoscopic (ICD-10-PCS; CPT 0421T; principal; 2024-06-18 09:15)
DX: N40.1 Benign prostatic hyperplasia with lower urinary tract symptoms (principal); N13.8 Other obstructive and reflux uropathy; R33.9 Retention of urine, unspecified
CPT/HCPCS: 0421T; C2596; J0690; J1100; J2405; J2704; J3010; J3490

== ENCOUNTER → 2024-06-20 15:21 | Outpatient (CLI) | payer MEDICARE, SELFPAY ==
[2022-10-05 12:01] VITALS: BMI 27.8
== END ==
PROVIDERS: PCP Family Medicine; Visit Provider Urology
DX: R33.9 Retention of urine, unspecified (principal); R39.198 Other difficulties with micturition
CPT/HCPCS: 87086

== ENCOUNTER → 2024-07-04 15:55 | Outpatient (CLI) | payer MEDICARE, SELFPAY ==
[2022-10-05 12:01] VITALS: BMI 27.8
== END ==
PROVIDERS: PCP Family Medicine; Visit Provider Urology
DX: R33.9 Retention of urine, unspecified (principal); R39.198 Other difficulties with micturition
CPT/HCPCS: 51798; 87086

== ENCOUNTER → 2024-08-05 13:54 | Outpatient (CLI) | payer MEDICARE, SELFPAY ==
[2022-10-05 12:01] VITALS: BMI 27.8
[2024-08-05 15:06] LABS: Alanine Aminotransferase 30 IU/L (<50); Albumin 4.5 g/dL (3.5-5.0); Albumin Globulin Ratio 1.5 (1.0-2.8); Alkaline Phosphatase 56 U/L (38-126); Aspartate Aminotransferase 36 IU/L (17-59); BUN Creatinine Ratio 22.2 (6-22); Bilirubin Total 0.5 mg/dL (0.2-1.3); Blood Urea Nitrogen 18 mg/dL (9-20); Calcium 9.9 mg/dL (8.4-10.2); Carbon Dioxide 30 mmol/L (22-32); Chloride 104 mmol/L (98-107); Estimated Glomerular Filt Rate > 60 mL/min (>60); Glucose 103 mg/dL (80-110); HEMOLYSIS < 15 (0-50); Potassium 4.4 mmol/L (3.4-5.1); Sodium 142 mmol/L (137-145); Total Protein 7.5 g/dL (6.3-8.2)
[2024-08-05 15:21] LABS: Free T4, Direct Thyroxine 1.18 ng/dL (0.78-2.19)
[2024-08-05 15:38] LABS: Thyroid Stimulating Hormone < 0.015 uIU/mL (0.47-4.68)
== END ==
PROVIDERS: PCP Family Medicine; Referring Provider Family Medicine; Visit Provider Family Medicine
DX: Z00.00 Encounter for general adult medical examination without abnormal findings (principal); E03.9 Hypothyroidism, unspecified; N40.1 Benign prostatic hyperplasia with lower urinary tract symptoms; N13.8 Other obstructive and reflux uropathy
CPT/HCPCS: 36415; 80053; 84439; 84443

== ENCOUNTER 2024-08-28 08:24 | Day surgery (SDC) | payer MEDICARE, SELFPAY ==
[2022-10-05 12:01] VITALS: BMI 27.8
--- NOTE | 2024-08-28 | PATH_ITS ---
[facility] Accession Number: [id number] No. of containers..03 Tissue . 01 Material submitted: . PART A: ileo-cecal valve - IC VALVE POLYP ? PART B: colon - RIGHT COLON PART C: colon - POLYP @ 50 . 01 Diagnosis: Part A: IC VALVE POLYP ?: Colonic mucosa with benign lymphoid aggregate. No neoplasm identified. . Specimen Comments: Additional step sections were examined. . Part B: RIGHT COLON: Tubular adenoma. . Part C: POLYP @ 50: Colonic mucosa with benign lymphoid aggregate. No neoplasm identified. . Specimen Comments: Additional step sections were examined. [facility] 09/02/2024 1218 Local . 01 Electronically signed: . Oscar Sanabria MD, Pathologist NPI- [id number] . 01 Gross description: . Part A: IC VALVE POLYP ?: Received in formalin are 3 fragment(s) of navarro, soft tissue measuring 0.1 x 0.1 x 0.1 cm to 0.3 x 0.2 x 0.2 cm submitted entirely in 1 cassette(s) . Part B: RIGHT COLON: Received in formalin are 3 fragment(s) of navarro, soft tissue measuring 0.1 x 0.1 x 0.1 cm to 0.5 x 0.2 x 0.2 cm submitted entirely in 1 cassette(s) . Part C: POLYP @ 50: Received in formalin is 1 fragment(s) of navarro, soft tissue measuring 0.3 x 0.3 x 0.3 cm submitted entirely in 1 cassette(s) /[facility] 09/02/2024 1218 Local . 01 Pathologist provided ICD-10: D12.2, K63.89 . 01 CPT . 274986, 957300, [id number] Specimen Comment: A courtesy copy of this report has been sent to [phone] Performed at: [address] [facility] [address] [place] [address], [place], [place] [id number] MD Oscar Sanabria MD Phone: [phone]
[2024-08-28] MEDS: LACTATED RINGERS 1,000 ML 42 ML IV (09:06)
--- NOTE | 2024-08-28 09:10 | PM.HP.IH.1 ---
History of Present Illness History of Present Illness Date Patient Seen: 08/28/24 Chief complaint: Screening Colonoscopy Narrative: Follow-up screening colonoscopy [facility] Medical History Medicare annual wellness visit, subsequent Incomplete emptying of bladder Slow urinary stream BPH w urinary obs/LUTS Abnormal digital rectal exam Lower urinary tract symptoms (LUTS) Elevated PSA Status post lumbar spinal arthrodesis Well adult exam Lumbar radiculopathy Spastic gait Thoracic radiculopathy Adhesive arachnoiditis Lumbar post-laminectomy syndrome Thoracic radiculopathy Pernicious anemia Hypothyroidism Back pain with history of spinal surgery Back pain Enlarged prostate Surgical History History of back surgery (05/11/22) History of incision and drainage (~10/2020) Hx of tonsillectomy Hx of vasectomy Hx of bilateral cataract extraction H/O left knee surgery History of hernia repair Hx of transurethral resection of prostate History of lumbar surgery Family History Father Heart disease Mother Old age Brother Arrhythmia Social History (Updated 08/05/24 @ 13:12 by Maria Luisa Ball MA) marital status: number of children: 3 household members: spouse lives independently: Yes caregiver/support person: No housing: house pets and animals: Yes education level: college occupational status: other current occupational exposures/hazards: No special freddie needs: No travel history: other leisure activities: exercise and reading seatbelt use: always Smoking Status: Former smoker Tobacco: How many years used: 3 alcohol intake: current substance use type: does not use Type(s) of exercise: swimming frequency: 3-4 times per week Meds Home Medications and Allergies Home Medications Medication Instructions Recorded Confirmed Type acetaminophen 500 mg capsule 500 mg PO Q4H PRN Pain, Mild (1-3) 05/12/22 08/05/24 Rx #90 caps levothyroxine 112 mcg tablet See Rx Instructions .Route 03/19/24 08/05/24 Rx .COMPLEX #90 tabs ibuprofen 400 mg tablet 400 mg PO Q8H 06/13/24 08/05/24 History pregabalin 150 mg capsule 150 mg PO BID #60 caps 07/01/24 08/05/24 Rx sodium,potassium,mag sulfates 17.5 See Rx Instructions PO .COMPLEX 08/08/24 Rx gram-3.13 gram-1.6 gram oral soln #354 mL (Suprep Bowel Prep Kit) Disabled Parking Permint #1 ea 08/16/24 Rx Allergies Allergy/AdvReac Type Severity Reaction Status Date / Time No Known Drug Allergies Allergy Verified 08/05/24 13:13 Exam Narrative Exam Narrative: Oropharynx free of lesions Chest clear to auscultation percussion Cardiac exam reveals no S3 or murmur Assessment & Plan Assessment & Plan narrative: Follow-up screening colonoscopy. Risks, benefits, alternatives have been explained. Time-Based Coding :: [TOTAL MINUTES] spent with patient and on the chart (including review of chart, obtaining history, exam, reviewing outside data, placing orders, documenting exam and treatment plan, and counseling patient) on [DATE]. [employer]EE [employer] Document charge(s): No
--- NOTE | 2024-08-28 09:12 | P.OP.COLON_ITS ---
Operative Date/Time/Diagnoses Date of procedure: 08/28/24 Pre-op diagnosis: See indications and findings Procedure & Clinicians Study performed: Colonoscopy Same procedure as scheduled: No Indications: Screening Surgeon: Malina Parikh Procedure Notes Procedure in detail: After informed consent was obtained the patient was placed in left lateral decubitus position. The video colonoscope was introduced the rectum slowly advanced cecum. On slow withdrawal mucosa was carefully examined. Preparation was good to fair given that there were some flecks of solid stool which could not be completely suctioned away.. The scope was removed. The patient tolerated procedure well. Blood loss none Complications none Sedation mac Findings 1. Patulous and somewhat prolapsing IC valve. Could not rule out some underlying adenomatous tissue. Biopsies were taken though I doubt will be po sitive 2. Mid right colon with 5 mm polyp Jumbo biopsy removed completely 3. 4 mm polyp at 50 cm Jumbo biopsied and removed completely 4. Otherwise negative colonoscopy to cecum Patient will need follow-up colonoscopy in 5 years if in excellent health
[2024-08-28 09:19] VITALS: BP 149/83; PULSE 69; RESP 18; TEMP 36.3; O2SAT 97
[2024-08-28 10:18] VITALS: BP 110/76; PULSE 57; RESP 12; TEMP 36.8; O2SAT 99
[2024-08-28 10:23] VITALS: BP 96/54; PULSE 67; RESP 14; O2SAT 99
[2024-08-28 10:28] VITALS: BP 116/71; PULSE 71; RESP 16; O2SAT 99
== END 2024-08-28 10:46 | disposition home or self-care (01) ==
PROVIDERS: PCP Family Medicine; Referring Provider Internal Medicine Gastroenterology; Visit Provider Internal Medicine Gastroenterology
PROC: 0DJD8ZZ Inspection of Lower Intestinal Tract, Via Natural or Artificial Opening Endoscopic (ICD-10-PCS; CPT 45378; principal; 2024-08-28 09:30)
DX: Z12.11 Encounter for screening for malignant neoplasm of colon (principal); D12.2 Benign neoplasm of ascending colon
CPT/HCPCS: 45380; J2704

== ENCOUNTER → 2024-12-10 07:09 | Outpatient (CLI) | payer MEDICARE, SELFPAY ==
[2022-10-05 12:01] VITALS: BMI 27.8
[2024-12-10 09:34] LABS: Prostate Specific Antigen 5.57 ng/mL (0.10-4.00)
== END ==
PROVIDERS: PCP Family Medicine; Referring Provider Family Medicine; Visit Provider Urology
DX: C61 Malignant neoplasm of prostate (principal)
CPT/HCPCS: 36415; 84153

== ENCOUNTER → 2025-02-25 13:39 | Outpatient (CLI) | payer MEDICARE, SELFPAY ==
[2022-10-05 12:01] VITALS: BMI 27.8
--- NOTE | 2025-02-25 13:44 | DI.RAD.S_ITS ---
PROCEDURE: XR LUMBAR SPINE 2-3V INDICATIONS: POST LAMINECTOMY SYNDROME TECHNIQUE: Two views of the lumbar spine were acquired. COMPARISON: [facility], CR, XR LUMBAR SPINE 2-3V, 05/11/2022, 12:37. FINDINGS: Lumbar spine curvature and alignment: Normal. Bones: There are no osseous abnormalities. Disc spaces: L4-5 and L5-S1 anterior/posterior fusion provided by interbody spacers pedicle screws and short interbody struts show anatomic alignment without postsurgical complication. Mild T11-T12 T12-L1, moderate L1-2 severe L2-3 moderate L3-4 degenerative disc disease noted . Soft tissues: No soft tissue swelling, calcification or mass. IMPRESSION: L4-5 L5-S1 anterior/posterior fusion anatomic alignment no complication Degeneration Dictated by: Rj Waller M.D. on 02/26/2025 at 13:22 Approved by: Rj Waller M.D. on 02/26/2025 at 13:23
== END ==
LOC: RAD 13:43
PROVIDERS: PCP Family Medicine; Referring Provider Anesthesiology Pain Medicine; Visit Provider Anesthesiology Pain Medicine
DX: M96.1 Postlaminectomy syndrome, not elsewhere classified (principal); M51.369 Other intervertebral disc degeneration, lumbar region without mention of lumbar back pain or lower extremity pain; Z98.1 Arthrodesis status
CPT/HCPCS: 72100